=== PATIENT | female | born 1995 | race Caucasian/White ===

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

== ENCOUNTER 2017-03-19 00:06 | Emergency (ER) | payer SELFPAY ==
[2017-03-19 07:00] LABS: HCG Qualitative,Urine Negative (Negative)
[2017-03-19 07:10] LABS: Bilirubin,Urine NEG (Negative); Blood,Urine NEG (Negative); Color,Urine Straw (Yellow); Nitrite,Urine NEG (Negative); Protein,Urine <15 mg/dL mg/dL (Negative); Urobilinogen,Urine < 2.0 mg/dL (<2.0)
--- NOTE | 2017-03-19 07:42 | Emergency Department Report ---
ED Female HPI - General Chief complaint: Urogenital-Female Stated complaint: VAG DISCOMFORT Time Seen by Provider: 03/19/17 07:07 Source: patient, family Mode of arrival: Ambulatory Limitations: No Limitations - History of Present Illness Initial comments: Patient reports that she has vaginal irritation and discharge. She says she was here recently for same tenderness treated with Flagyl but she did not complete Flagyl. Patient says she is not concerned about any other STD she thinks that she still have the bacterial vaginosis with his she didn't take all her medication she also says she is irritated on the vaginal area and also while having sexual activity. When reviewing patient history she is type 1 diabetes. She said her blood sugar was running high yesterday and she also just drank some flavored coffee from the machine. She denies any increase urination or increased thirst. Denies any fever or chills. Denies any vaginal bleeding. Last menstrual period was 02/17/2017. Denies any abdominal pain or back pain. Denies any nausea vomiting. She is with her partner and partner reports that he is not having any penile drainage or rash. Patient is on insulin but and have pcp. She did complain of pelvic pain in triage here but patient is denying that at present. MD Complaint: vaginal discharge, dysuria, other (patient is here for treatment for bacterial vaginosis because she said she did not take Flagyl as she was instructed. She has diabetes and complaining of external vaginal irritation) Onset/Timin -: week(s) Radiation: non-radiating Severity: severe Severity scale (0 -10): 8 Quality: burning Consistency: intermittent Improves with: none Worsens with: none Are you Now?: No Associated Symptoms: vaginal discharge, other (vaginal irritation). denies: vaginal bleeding, abdominal pain, nausea/vomiting, fever/chills, headaches, loss of appetite, dysuria, hematuria, rash, seizure, shortness of breath, syncope, weakness - Related Data Sexually active: Yes Home Medications Medication Instructions Recorded Confirmed Last Taken Levothyroxine [Synthroid] 112 mcg PO QAM 08/30/14 01/22/16 01/22/16 unknown valACYclovir [Valtrex] 500 mg PO BID 08/30/14 01/22/16 Unknown Insulin Lispro Protamin/Lispro 15 units SQ PMHY 08/13/15 01/22/16 01/22/16 [HumaLOG Mix 75-25 Kwikpen] 1700 Insulin Lispro Protamin/Lispro 20 units SQ AMHY 08/13/15 01/22/16 01/22/16 [HumaLOG Mix 75-25 Kwikpen] Previous Rx's Medication Instructions Recorded Last Taken Type Vit No.130/Iron/Folic 1 each PO QDAY #30 tablet 08/13/15 Unknown Rx [ Tablet] Tobramycin/Dexamethasone [Tobradex 2.5 ml OP Q4H #1 bottle 12/07/16 Unknown Rx Eye Drops] Permethrin 5% [Acticin 5% CREAM] 1 applicatio TP ONCE #1 tube 12/29/16 Unknown Rx Sulfamethoxazole/Trimethoprim 1 each PO BID #6 tablet 12/29/16 Unknown Rx [Bactrim DS TAB] metroNIDAZOLE [Flagyl TAB] 500 mg PO Q12HR #14 tab 12/29/16 Unknown Rx Fluconazole [Diflucan TAB] 100 mg PO QDAY 2 Days #2 tablet 03/19/17 Unknown Rx Nystatin Oint [Mycostatin Oint] 1 applicatio TP BID 1 Days #1 tube 03/19/17 Unknown Rx metroNIDAZOLE [Flagyl] 500 mg PO Q12HR 7 Days #14 tab 03/19/17 Unknown Rx Allergies Allergy/AdvReac Type Severity Reaction Status Date / Time No Known Allergies Allergy Verified 03/05/16 22:42 ED Review of Systems ROS: Stated complaint: VAG DISCOMFORT Other details as noted in HPI Comment: All other systems reviewed and negative Constitutional: no symptoms reported Endocrine: denies: excessive sweating, increased hunger, increased thirst, increased urine, unexplained weight gain, unexplained weight loss Gastrointestinal: denies: abdominal pain, nausea, vomiting, diarrhea, constipation, hematemesis, melena, hematochezia Genitourinary: discharge, dyspareunia, other (vaginal irritation). denies: urgency, dysuria, frequency, hematuria, abnormal menses Musculoskeletal: denies: back pain, arthralgia, myalgia Skin: denies: rash Neurological: denies: headache, numbness, paresthesias, abnormal gait, vertigo ED Past Medical Hx - Past Medical History Previous Medical History?: Yes Hx Hypertension: No Hx Diabetes: Yes (age 8) Hx Deep Vein Thrombosis: No Hx Renal Disease: No Hx Sickle Cell Disease: No Hx Seizures: No Hx Asthma: No Hx HIV: No - Surgical History Past Surgical History?: Yes Additional Surgical History: - Social History Smoking Status: Never Smoker Substance Use Type: None - Medications Home Medications: Home Medications Medication Instructions Recorded Confirmed Last Taken Type Levothyroxine [Synthroid] 112 mcg PO QAM 08/30/14 01/22/16 01/22/16 History unknown valACYclovir [Valtrex] 500 mg PO BID 08/30/14 01/22/16 Unknown History Insulin Lispro Protamin/Lispro 15 units SQ PMHY 08/13/15 01/22/16 01/22/16 History [HumaLOG Mix 75-25 Kwikpen] 1700 Insulin Lispro Protamin/Lispro 20 units SQ AMHY 08/13/15 01/22/16 01/22/16 History [HumaLOG Mix 75-25 Kwikpen] Vit No.130/Iron/Folic 1 each PO QDAY #30 tablet 08/13/15 01/22/16 Unknown Rx [ Tablet] Tobramycin/Dexamethasone [Tobradex 2.5 ml OP Q4H #1 bottle 12/07/16 Unknown Rx Eye Drops] Permethrin 5% [Acticin 5% CREAM] 1 applicatio TP ONCE #1 tube 12/29/16 Unknown Rx Sulfamethoxazole/Trimethoprim 1 each PO BID #6 tablet 12/29/16 Unknown Rx [Bactrim DS TAB] metroNIDAZOLE [Flagyl TAB] 500 mg PO Q12HR #14 tab 12/29/16 Unknown Rx Fluconazole [Diflucan TAB] 100 mg PO QDAY 2 Days #2 tablet 03/19/17 Unknown Rx Nystatin Oint [Mycostatin Oint] 1 applicatio TP BID 1 Days #1 tube 03/19/17 Unknown Rx metroNIDAZOLE [Flagyl] 500 mg PO Q12HR 7 Days #14 tab 03/19/17 Unknown Rx ED Physical Exam - General Limitations: No Limitations General appearance: alert, in no apparent distress - GI/Abdominal GI/Abdominal exam: Present: soft, normal bowel sounds. Absent: distended, tenderness, guarding, rebound, rigid, organomegaly, mass, bruit, pulsatile mass , hernia - External exam: Present: erythema, swelling. Absent: lesions, lacerations, ecchymosis, bleeding Speculum exam: Present: normal speculum exam, vaginal discharge. Absent: erythema, cervical discharge, vaginal bleeding, foreign body, tissue, laceration Bi-manual exam: Present: normal bi-manual exam ED Course Vital Signs 03/19/17 03/19/17 03/19/17 01:47 08:15 08:49 Temperature 98.8 F 98.5 F Pulse Rate 116 H 107 H 94 H Respiratory 14 Rate Blood Pressure 119/73 Blood Pressure 113/76 [Right] O2 Sat by Pulse 99 99 Oximetry - Reevaluation(s) Reevaluation #1: 03/19/17 08:47 Patient reports vaginal irritation and discharge similar to what she was treated for last month. She says she didn't finish her medication. She was placed on Flagyl for bacterial vaginosis. She is type 1 diabetes and her blood sugar is over 300. Patient given regular insulin 6 units subcutaneous and recheck blood sugar. She is also started on oral hydration. She has less than 20% clue cells, no trichomoniasis or yeast seen. She does have redness to her vulvovaginal area. Reevaluation #2: 03/19/17 10:26 Patient with blood glucose elevation and insulin-dependent diabetes. She has trace ketones in her urine but no urinary tract infection. Patient was given 6 units of insulin subcutaneous and her blood glucose at present is 314. Patient had just drank some coffee and she says she is going on to take her insulin. She stable vital signs are stable. Patient with vulvovaginitis and small amount of clue cells in her soft ED Medical Decision Making - Lab Data Lab Results 03/19/17 03/19/17 03/19/17 Range/Units 04:20 08:07 09:47 POC Glucose 334 H 314 H (70-105) Urine Color Straw (Yellow) Urine Turbidity Clear (Clear) Urine pH 6.0 (5.0-7.0) Ur Specific [place] 1.029 (1.003-1.030) Urine Protein <15 mg/dl (Negative) mg/dL Urine Glucose (UA) >=500 (Negative) mg/dL Urine Ketones Tr (Negative) mg/dL Urine Blood Neg (Negative) Urine Nitrite Neg (Negative) Ur Reducing Substances Not Reportable Urine Bilirubin Neg (Negative) Urine Ictotest Not Reportable Urine Urobilinogen < 2.0 (<2.0) mg/dL Ur Leukocyte Esterase Neg (Negative) Urine WBC (Auto) 1.0 (0.0-6.0) /HPF Urine RBC (Auto) 1.0 (0.0-6.0) /HPF U Epithel Cells (Auto) < 1.0 (0-13.0) /HPF Urine HCG, Qual Negative (Negative) Wet prep: Less than 20% clue cell, no trichomoniasis or yeast. Critical care attestation.: If time is entered above; I have spent that time in minutes in the direct care of this critically ill patient, excluding procedure time. ED Disposition Clinical Impression: Hyperglycemia due to type 1 diabetes mellitus, Vulvovaginitis due to Cyn, Bacterial vaginosis Disposition: - TO HOME OR SELFCARE Is pt being admited?: No Does the pt Need Aspirin: No Condition: Stable Instructions: Bacterial Vaginosis (ED), Managing Diabetes During Sick Days (ED) , Diabetic Hyperglycemia (ED), Vulvovaginal Candidiasis (ED) Additional Instructions: follow-up with a primary care physician tomorrow and if he do not have one follow up with [facility]. monitored a blood glucose as well as elevated today and elevated blood glucose came cause infection which is what you have on the outside a few vaginal area Please increase her fluid intake to 2 the 3 L of water per day Please follow diabetic diet was previously instructed take meds As prescribed Take Flagyl for bacterial vaginosis and Diflucan on and nystatin for yeast infection and vagina Practice safe sex Prescriptions: Fluconazole [Diflucan TAB] 100 mg PO QDAY 2 Days #2 tablet metroNIDAZOLE [Flagyl] 500 mg PO Q12HR 7 Days #14 tab Nystatin Oint [Mycostatin Oint] 1 applicatio TP BID 1 Days #1 tube Referrals: PRIMARY CARE,MD [Primary Care Provider] - 24 Hours [facility] [Outside] - 24 Hours Forms: STI Treatment and Prevention, Work/School Release Form(ED), Accompanied Note
[2017-03-19 08:18] VITALS: BP 113/76
== END 2017-03-19 10:39 | disposition home or self-care (01) ==
LOC: ED 00:06
DX: B37.3 Candidiasis of vulva and vagina (principal); N76.0 Acute vaginitis; E10.65 Type 1 diabetes mellitus with hyperglycemia
CPT/HCPCS: 81001; 81025; 82962; 87210; 96372; J1815

== ENCOUNTER 2017-11-07 04:51 | Inpatient (IN) | payer SELFPAY ==
[2017-11-07 06:18] LABS: Basophils % (Auto) 0.4 % (0.0-1.8); Eosinophils # (Auto) 0.2 K/mm3 (0.0-0.4); Eosinophils % (Auto) 2.7 % (0.0-4.3); Hematocrit 39.4 % (30.3-42.9); Lymphocytes # (Auto) 1.4 K/mm3 (1.2-5.4); Lymphocytes % (Auto) 15.9 % (13.4-35.0); Mean Corpuscular HGB Conc 33 % (30-34); Mean Corpuscular Hemoglobin 27 pg (28-32); Mean Corpuscular Volume 82 fl (79-97); Monocytes # (Auto) 0.6 K/mm3 (0.0-0.8); Monocytes % (Auto) 6.8 % (0.0-7.3); Platelet Count 309 K/mm3 (140-440); Red Blood Count 4.78 M/mm3 (3.65-5.03); Red Cell Distribution Width 13.7 % (13.2-15.2)
[2017-11-07 06:38] LABS: Alanine Aminotransferase 11 units/L (7-56); Albumin 4.3 g/dL (3.9-5); BUN/Creatinine Ratio 34; Blood Urea Nitrogen 17 mg/dL (7-17); Calcium 9.5 mg/dL (8.4-10.2); Hemolysis Index 0
[2017-11-07 07:48] LABS: Bacteria,Urine 1+ /HPF (Negative); Bilirubin,Urine NEG (Negative); Blood,Urine MOD (Negative); Color,Urine Straw (Yellow); Urobilinogen,Urine < 2.0 mg/dL (<2.0)
[2017-11-07] MEDS ORDERED: NACL 0.9% 1000 ML 1,000 ML IV ONE (08:46)
[2017-11-07] MEDS ORDERED: SUBLIMAZE IV ONE (08:46)
[2017-11-07] MEDS ORDERED: ZOFRAN IV ONE (08:46)
[2017-11-07] MEDS ORDERED: LEVAQUIN 500MG/100ML 500 MG/100 ML BAG IV ONE (08:56)
--- NOTE | 2017-11-07 09:00 | Emergency Department Report ---
HPI - General Chief Complaint: Abdominal Pain Time Seen by Provider: 11/07/17 08:45 - HPI HPI: Room 7 The patient is a 22-year-old female presenting with a chief complaint left flank pain. Patient states her 6 days ago with pain in the left flank. Patient admits to dysuria and nausea and vomiting. Patient states she feels weak and has exhibited hyperglycemia. The patient is uncertain if she's had a fever. The patient gives her pain a score of 10/10 Location: Left flank Duration: 6 days Quality: Pain Severity: 10/10 Modifying factors: [see above] Context: [see above] Mode of transportation: [not driving] ED Past Medical Hx - Past Medical History Previous Medical History?: Yes Hx Diabetes: Yes (age 8) - Surgical History Past Surgical History?: Yes Additional Surgical History: - Family History Family history: no significant - Social History Smoking Status: Never Smoker Substance Use Type: None (denies illicit drug use) - Medications Home Medications: Home Medications Medication Instructions Recorded Confirmed Last Taken Type Levothyroxine [Synthroid] 112 mcg PO QAM 08/30/14 01/22/16 01/22/16 History unknown valACYclovir [Valtrex] 500 mg PO BID 08/30/14 01/22/16 Unknown History Insulin Lispro Protamin/Lispro 15 units SQ PMHY 08/13/15 01/22/16 01/22/16 History [HumaLOG Mix 75-25 Kwikpen] 1700 Insulin Lispro Protamin/Lispro 20 units SQ AMHY 08/13/15 01/22/16 01/22/16 History [HumaLOG Mix 75-25 Kwikpen] Vit No.130/Iron/Folic 1 each PO QDAY #30 tablet 08/13/15 01/22/16 Unknown Rx [ Tablet] Tobramycin/Dexamethasone [Tobradex 2.5 ml OP Q4H #1 bottle 12/07/16 Unknown Rx Eye Drops] Permethrin 5% [Acticin 5% CREAM] 1 applicatio TP ONCE #1 tube 12/29/16 Unknown Rx Sulfamethoxazole/Trimethoprim 1 each PO BID #6 tablet 12/29/16 Unknown Rx [Bactrim DS TAB] metroNIDAZOLE [Flagyl TAB] 500 mg PO Q12HR #14 tab 12/29/16 Unknown Rx Fluconazole [Diflucan TAB] 100 mg PO QDAY 2 Days #2 tablet 03/19/17 Unknown Rx Nystatin Oint [Mycostatin Oint] 1 applicatio TP BID 1 Days #1 tube 03/19/17 Unknown Rx metroNIDAZOLE [Flagyl] 500 mg PO Q12HR 7 Days #14 tab 03/19/17 Unknown Rx ED Review of Systems ROS: Stated complaint: FLANK PAIN BODYACHE Other details as noted in HPI Constitutional: fever (?), weakness Eyes: denies: eye pain ENT: denies: throat pain Respiratory: no symptoms reported Cardiovascular: denies: chest pain Endocrine: other (hyperglycemia) Gastrointestinal: abdominal pain, nausea, vomiting Genitourinary: dysuria Musculoskeletal: back pain Neurological: denies: headache Physical Exam - Physical Exam Physical Exam: GENERAL: The patient is well-developed well-nourished female lying on stretcher appearing to be in moderate discomfort. [] HEENT: Normocephalic. Atraumatic. Extraocular motions are intact. Patient has moist mucous membranes. NECK: Supple. Trachea midline CHEST/LUNGS: Clear to auscultation. There is no respiratory distress noted. HEART/CARDIOVASCULAR: Regular. There is no tachycardia. There is no gallop rub or murmur. ABDOMEN: Abdomen is soft, with tenderness to palpation of the left lower quadrant. Patient has normal bowel sounds. There is no abdominal distention. SKIN: There is no rash. There is no edema. There is no diaphoresis. NEURO: The patient is awake, alert, and oriented. The patient is cooperative. The patient has normal speech MUSCULOSKELETAL: There is left CVA tenderness. There is no evidence of acute injury. ED Medical Decision Making - Lab Data Result diagrams: 11/07/17 05:50 11/07/17 05:50 - Radiology Data Radiology results: report reviewed (CT abdomen and pelvis), image reviewed (CT abdomen and pelvis) [facility] [address] [place] [address] Cat Scan Report Signed Patient: NEW CULVER MR#: [id number] : 1995 Acct:[id number] Age/Sex: 22 / F ADM Date: 11/07/17 Loc: ED Attending Dr: Ordering Physician: ELMA MAYA MD Date of Service: 11/07/17 Procedure(s): CT abdomen pelvis wo con Accession Number(s): [id number] cc: ELMA MAYA MD FINAL REPORT EXAM: CT ABDOMEN PELVIS WO CON HISTORY: left flank pain nausea vomiting COMPARISON: None. TECHNIQUE: Multiple contiguous axial images were obtained from the lung bases to the pubic symphysis without administration of IV contrast. Reformatted sagittal and coronal images were available for review. FINDINGS: Lung bases: Normal. Visualized heart and mediastinum: Normal noncontrast appearance. Liver: Normal noncontrast appearance. Spleen: Normal noncontrast appearance. Pancreas: Normal noncontrast appearance. Gallbladder and Biliary Tree: No calcified gallstones. No biliary ductal dilatation. Adrenal glands: Normal. Kidneys: No renal or ureteral calculi. There is mild prominence of the bilateral renal collecting systems and ureters. Bladder: Normal. Pelvic organs: Normal. Bowel: No focal wall thickening. No evidence of obstruction. Appendix is normal in caliber without surrounding inflammatory change. Peritoneum: No significant mesenteric adenopathy. No free air or free fluid. Vasculature: Abdominal aorta is normal in caliber without evidence of aneurysm. Normal noncontrast appearance of the portal venous system and the inferior vena cava. Bones and soft tissues: No suspicious osseous lesions. No acute fracture or dislocation. Soft tissues are normal. IMPRESSION: No renal or ureteral calculi. Mild prominence of the bilateral renal collecting systems and ureters. Findings may represent recently passed stones versus infection or inflammation. No evidence of bowel obstruction. Normal appendix. Transcribed By : SERGIO Dictated By: DARYL CHICAS MD Electronically Authenticated By: DARYL CHICAS MD Signed Date/Time: 11/07/17956 DD/ 6 TD/TT: 11/07/17956 - Differential Diagnosis pyelonephritis, renal colic Critical care attestation.: If time is entered above; I have spent that time in minutes in the direct care of this critically ill patient, excluding procedure time. ED Disposition Clinical Impression: Pyelonephritis, DKA (diabetic ketoacidoses) Disposition: OP ADMIT IP TO THIS HOSP Is pt being admited?: Yes Does the pt Need Aspirin: Yes Condition: Fair Instructions: Abdominal Pain (ED), Diabetic Ketoacidosis (ED) Referrals: PRIMARY CARE, [Primary Care Provider] - 3-5 Days Time of Disposition: 10:19 (hospitalist paged)
--- NOTE | 2017-11-07 09:58 | Cat Scan Report ---
FINAL REPORT EXAM: CT ABDOMEN PELVIS WO CON HISTORY: left flank pain nausea vomiting COMPARISON: None. TECHNIQUE: Multiple contiguous axial images were obtained from the lung bases to the pubic symphysis without administration of IV contrast. Reformatted sagittal and coronal images were available for review. FINDINGS: Lung bases: Normal. Visualized heart and mediastinum: Normal noncontrast appearance. Liver: Normal noncontrast appearance. Spleen: Normal noncontrast appearance. Pancreas: Normal noncontrast appearance. Gallbladder and Biliary Tree: No calcified gallstones. No biliary ductal dilatation. Adrenal glands: Normal. Kidneys: No renal or ureteral calculi. There is mild prominence of the bilateral renal collecting systems and ureters. Bladder: Normal. Pelvic organs: Normal. Bowel: No focal wall thickening. No evidence of obstruction. Appendix is normal in caliber without surrounding inflammatory change. Peritoneum: No significant mesenteric adenopathy. No free air or free fluid. Vasculature: Abdominal aorta is normal in caliber without evidence of aneurysm. Normal noncontrast appearance of the portal venous system and the inferior vena cava. Bones and soft tissues: No suspicious osseous lesions. No acute fracture or dislocation. Soft tissues are normal. IMPRESSION: No renal or ureteral calculi. Mild prominence of the bilateral renal collecting systems and ureters. Findings may represent recently passed stones versus infection or inflammation. No evidence of bowel obstruction. Normal appendix.
[2017-11-07] MEDS ORDERED: D50W (25GM) Syringe IV PRN (10:20)
--- NOTE | 2017-11-07 10:32 | History and Physical Report ---
History of Present Illness Date of examination: 11/07/17 Medications and Allergies Allergies Allergy/AdvReac Type Severity Reaction Status Date / Time No Known Allergies Allergy Verified 03/05/16 22:42 Active Meds: Active Medications Dextrose (D50w (25gm) Syringe) 0 ml IV ONCE PRN PRN Reason: Hypoglycemia Insulin Human Regular 100 (units/ Sodium Chloride) 100 mls @ 6 mls/hr IV TITR SILVANA; Protocol Exam - Physical Exam Narrative exam: GEN: Not in acute distress, lying in bed HEENT: Normocephalic, atraumatic, Neck: supple, No JVD Lungs: Clear to auscultation bilaterally, no crackles Heart:S1 and S2 reg, no murmurs, rubs or gallop Abd:soft, tender left flank, non distended, Normal bowel sounds Ext: No edema, no clubbing, no cyanosis Neuro: Awake, alert, oriented x 3, no focal sig - Constitutional Vitals: Temp Pulse Resp BP Pulse Ox 118 H 20 113/66 11/07/17 09:06 11/07/17 09:06 11/07/17 09:06 Results - Labs CBC & Chem 7: 11/07/17 05:50 11/07/17 05:50 Labs: Abnormal lab results 11/07/17 11/07/17 11/07/17 Range/Units 05:50 05:50 07:16 MCH 27 L (28-32) pg Seg Neutrophils % 74.2 H (40.0-70.0) % VBG pH (7.320-7.420) Sodium 136 L (137-145) mmol/L Chloride 93.4 L (98-107) mmol/L Creatinine 0.5 L (0.7-1.2) mg/dL Glucose 414 H (65-100) mg/dL Urine WBC (Auto) 127.0 H (0.0-6.0) /HPF 11/07/17 Range/Units 09:05 MCH (28-32) pg Seg Neutrophils % (40.0-70.0) % VBG pH 7.314 L (7.320-7.420) Sodium (137-145) mmol/L Chloride (98-107) mmol/L Creatinine (0.7-1.2) mg/dL Glucose (65-100) mg/dL Urine WBC (Auto) (0.0-6.0) /HPF
[2017-11-07] MEDS ORDERED: ZOFRAN IV PRN (10:51)
[2017-11-07] MEDS ORDERED: TYLENOL PO PRN (10:51)
[2017-11-07] MEDS ORDERED: MORPHINE IV PRN (10:51)
[2017-11-07] MEDS ORDERED: SODIUM CHLORIDE FLUSH SYRINGE 10 ML IV PRN (10:51)
[2017-11-07] MEDS ORDERED: HumuLIN R 100 UNITS in NACL 0.9% 99 ML IV SCH (11:00)
[2017-11-07] MEDS ORDERED: NACL 0.9% 1000 ML 1,000 ML IV SCH (11:00)
[2017-11-07] MEDS: HEPARIN SUB-Q SCH ×2 (14:36→21:02)
[2017-11-07] MEDS: SODIUM CHLORIDE FLUSH SYRINGE 10 ML IV SCH (21:06)
[2017-11-08] MEDS: HEPARIN SUB-Q SCH (04:30)
[2017-11-08 05:28] LABS: Basophils % (Auto) 0.5 % (0.0-1.8); Eosinophils # (Auto) 0.3 K/mm3 (0.0-0.4); Hematocrit 30.7 % (30.3-42.9); Hemoglobin 10.3 gm/dl (10.1-14.3); Lymphocytes % (Auto) 43.1 % (13.4-35.0); Mean Corpuscular HGB Conc 34 % (30-34); Mean Corpuscular Hemoglobin 27 pg (28-32); Mean Corpuscular Volume 80 fl (79-97); Monocytes # (Auto) 0.4 K/mm3 (0.0-0.8); Monocytes % (Auto) 6.3 % (0.0-7.3); Platelet Count 307 K/mm3 (140-440); Red Blood Count 3.82 M/mm3 (3.65-5.03); Red Cell Distribution Width 13.4 % (13.2-15.2)
[2017-11-08 05:38] LABS: BUN/Creatinine Ratio 40; Blood Urea Nitrogen 12 mg/dL (7-17); Hemolysis Index 2
[2017-11-08] MEDS ORDERED: LEVAQUIN 750MG/150ML 750 MG/150 ML BAG IV SCH (10:00)
--- NOTE | 2017-11-08 10:50 | Discharge Summary ---
Providers - Providers Date of Admission: 11/07/17 12:31 Date of discharge: 11/08/17 Attending physician: ANDI CAMARA Primary care physician: OBED FIELD MD Hospitalization Condition: Fair Disposition: DC-01 TO HOME OR SELFCARE Core Measure Documentation - Palliative Care Palliative Care/ Comfort Measures: Not Applicable - Core Measures Any of the following diagnoses?: none Exam - Constitutional Vitals: Temp Pulse Resp BP Pulse Ox 98.6 F 95 H 24 104/63 97 11/08/17 04:50 11/08/17 04:50 11/08/17 04:50 11/08/17 04:50 11/08/17 04:50 Plan Activity: no restrictions Diet: diabetic Additional Instructions: 1.Follow up with PCP or [facility] medical in 1 week Follow up with: PRIMARY CARE, [Primary Care Provider] - 3-5 Days Prescriptions: Insulin NPH/Regular [Novolin 70/30] 20 unit SQ BIDDIAB #1 vial levoFLOXacin [Levaquin] 750 mg PO QDAY #5 tablet Promethazine [Phenergan TAB] 25 mg PO Q6HR PRN #20 tab PRN Reason: Nausea or vomiting
[2017-11-08] MEDS ORDERED: K-DUR PO ONE (11:00)
[2017-11-08] MEDS: SODIUM CHLORIDE FLUSH SYRINGE 10 ML IV SCH (11:23)
[2017-11-08 13:40] VITALS: BP 126/94
== END 2017-11-08 14:45 | disposition home or self-care (01) | DRG 689 ==
LOC: ED 04:51 → 3A 12:31
PROVIDERS: ADMIT Internal Medicine; ATTEND Internal Medicine
DX: N12 Tubulo-interstitial nephritis, not specified as acute or chronic (principal); E11.10 Type 2 diabetes mellitus with ketoacidosis without coma; Z79.899 Other long term (current) drug therapy
CPT/HCPCS: 36415; 74176; 80048; 80053; 81001; 82805; 82962; 83036; 83735; 84100; 84703; 85025; 87086; 96361; 96374; 96375; J1644; J1815; J1956; J2405; J3010; J7030

== ENCOUNTER 2018-02-05 09:49 | Inpatient (IN) | payer OTHER ==
[2018-02-05] MEDS ORDERED: ZOFRAN IV ONE ×3 (10:28→20:24)
[2018-02-05] MEDS ORDERED: NACL 0.9% 1000 ML 1,000 ML IV ONE ×2 (10:28→11:24)
[2018-02-05] MEDS ORDERED: MORPHINE IV ONE (10:28)
--- NOTE | 2018-02-05 10:31 | Emergency Department Report ---
ED N/V/D HPI - General Chief complaint: Nausea/Vomiting/Diarrhea Stated complaint: VOMITING/NAUSEA Time Seen by Provider: 02/05/18 10:11 Source: patient Mode of arrival: Stretcher Limitations: No Limitations - History of Present Illness Initial comments: 31-year-old female with history of diabetes process to ED with nausea and vomiting since this morning. Patient also reports associated diffuse abdominal pain. Patient patient is currently on her menstrual period. Patient denies fever. MD complaint: nausea, vomiting, diarrhea, abdominal pain -: This morning Description of Vomiting: food contents, watery Description of Diarrhea: water Associated Abdominal Pain: Yes Location: diffuse Radiation: none Severity: severe Quality: cramping Consistency: constant Improves with: none Worsens with: none Associated Symptoms: nausea/vomiting. denies: fever/chills - Related Data Previous Rx's Medication Instructions Recorded Last Taken Type Insulin NPH/Regular [Novolin 70/30] 20 unit SQ BIDDIAB #1 vial 11/08/17 Unknown Rx Allergies Allergy/AdvReac Type Severity Reaction Status Date / Time No Known Allergies Allergy Verified 03/05/16 22:42 ED Review of Systems ROS: Stated complaint: VOMITING/NAUSEA Other details as noted in HPI Comment: All other systems reviewed and negative Constitutional: denies: chills, fever Gastrointestinal: abdominal pain. denies: nausea, vomiting, diarrhea ED Past Medical Hx - Past Medical History Hx Hypertension: No Hx Congestive Heart Failure: No Hx Diabetes: Yes Hx Deep Vein Thrombosis: No Hx Renal Disease: No Hx Sickle Cell Disease: No Hx Seizures: No Hx Asthma: No Hx COPD: No Hx HIV: No - Surgical History Additional Surgical History: 2017 - Social History Smoking Status: Never Smoker Substance Use Type: None - Medications Home Medications: Home Medications Medication Instructions Recorded Confirmed Last Taken Type Insulin NPH/Regular [Novolin 70/30] 20 unit SQ BIDDIAB #1 vial 11/08/17 02/05/18 Unknown Rx ED Physical Exam - General Limitations: No Limitations General appearance: alert, other (appears uncomfortable) - Head Head exam: Present: atraumatic, normocephalic - Eye Eye exam: Present: normal appearance - ENT ENT exam: Present: mucous membranes moist - Neck Neck exam: Present: normal inspection - Respiratory Respiratory exam: Present: normal lung sounds bilaterally. Absent: respiratory distress - Cardiovascular Cardiovascular Exam: Present: normal rhythm, tachycardia - GI/Abdominal GI/Abdominal exam: Present: soft, tenderness (moderate, diffuse). Absent: distended - Neurological Exam Neurological exam: Present: alert, oriented X3 - Psychiatric Psychiatric exam: Present: normal affect, normal mood - Skin Skin exam: Present: warm, dry, intact, normal color ED Course Vital Signs 02/05/18 02/05/18 02/05/18 10:01 10:10 11:18 Temperature 98.2 F Pulse Rate 107 H Respiratory 22 18 Rate Blood Pressure 133/88 [Right] O2 Sat by Pulse 100 Oximetry 02/05/18 02/05/18 11:45 14:16 Temperature Pulse Rate 110 H 118 H Respiratory 12 22 Rate Blood Pressure 122/89 119/82 [Right] O2 Sat by Pulse 98 98 Oximetry ED Medical Decision Making - Lab Data Result diagrams: 02/05/18 10:53 02/05/18 14:04 - Medical Decision Making 23-year-old female presents to ED with nausea, vomiting, diarrhea and diffuse abdominal pain times one day. History of diabetes. Today patient appears to be in DKA, with elevated blood glucose, bicarbonate of 11 and an anion gap of 30. Blood work also shows moderate serum ketones. Patient started on IV fluids and insulin treatment for treatment of DKA. Patient admitted to the hospitalist. - Differential Diagnosis DKA, gastroparesis, gastroenteritis Critical Care Time: Yes Critical care time in (mins) excluding proc time.: 35 Critical care attestation.: If time is entered above; I have spent that time in minutes in the direct care of this critically ill patient, excluding procedure time. Critical Care Time: 35 minutes ED Disposition Clinical Impression: DKA (diabetic ketoacidoses) Disposition: -09 OP ADMIT IP TO THIS HOSP Is pt being admited?: Yes Condition: Stable Time of Disposition: 11:30
[2018-02-05 11:09] LABS: Basophils # (Auto) 0.1 K/mm3 (0.0-0.1); Basophils % (Auto) 0.8 % (0.0-1.8); Eosinophils # (Auto) 0.1 K/mm3 (0.0-0.4); Eosinophils % (Auto) 0.7 % (0.0-4.3); Hematocrit 41.8 % (30.3-42.9); Hemoglobin 13.3 gm/dl (10.1-14.3); Lymphocytes # (Auto) 1.7 K/mm3 (1.2-5.4); Lymphocytes % (Auto) 13.2 % (13.4-35.0); Mean Corpuscular HGB Conc 32 % (30-34); Mean Corpuscular Hemoglobin 27 pg (28-32); Mean Corpuscular Volume 84 fl (79-97); Monocytes # (Auto) 0.2 K/mm3 (0.0-0.8); Monocytes % (Auto) 1.9 % (0.0-7.3); Platelet Count 374 K/mm3 (140-440); Red Blood Count 4.97 M/mm3 (3.65-5.03)
[2018-02-05 11:18] LABS: Alanine Aminotransferase 13 units/L (7-56); Albumin 4.7 g/dL (3.9-5); BUN/Creatinine Ratio 20; Blood Urea Nitrogen 12 mg/dL (7-17); Calcium 9.1 mg/dL (8.4-10.2); Hemolysis Index 90
[2018-02-05] MEDS ORDERED: D50W (25GM) Syringe IV PRN ×2 (11:24→13:58)
--- NOTE | 2018-02-05 12:07 | History and Physical Report ---
History of Present Illness Chief complaint: I feel terrible History of present illness: 23 YO Female with DM, Noncompliance presents to ED for evaluation. Pt states that she has experienced nausea, multiple episodes of vomiting, as well as abdominal discomfort after multiple episodes of vomiting over the past 1 day wi th persistent symptoms over the same time frame. Pt transported to [facility] for further care and evaluation. Pt seen and evaluated in ED and found to have new onset DM complicated by DKA, as well as Metabolic Acidosis. Pt admitted to ICU and initiated on DKA Protocol. Pt denies fever, chills, CP, Palpitations, Trauma, hemoptysis, BRBPR, Skin rash, or recent ill contacts. Past History Past Medical History: diabetes Past Surgical History: Social history: single. denies: smoking, alcohol abuse, prescription drug abuse Family history: diabetes, hypertension Medications and Allergies Allergies Allergy/AdvReac Type Severity Reaction Status Date / Time No Known Allergies Allergy Verified 03/05/16 22:42 Home Medications Medication Instructions Recorded Confirmed Last Taken Type Insulin NPH/Regular [Novolin 70/30] 20 unit SQ BIDDIAB #1 vial 11/08/17 02/05/18 Unknown Rx Active Meds: Active Medications Dextrose (D50w (25gm) Syringe) 0 ml IV PRN PRN PRN Reason: Hypoglycemia Sodium Chloride (Nacl 0.9% 1000 Ml) 1,000 mls @ 999 mls/hr IV BOLUS ONE Stop: 02/05/18 12:24 Last Admin: 02/05/18 12:00 Dose: 999 mls/hr Documented by: Insulin Human Regular 100 (units/ Sodium Chloride) 100 mls @ 6 mls/hr IV TITR SILVANA; Protocol Review of Systems Constitutional: no weight loss, no weight gain, no fever, no chills Ears, nose, mouth and throat: no ear pain, no ear discharge, no tinnitis, no decreased hearing, no nose pain Breasts: no change in shape, no swelling, no mass Cardiovascular: no chest pain, no orthopnea, no palpitations, no rapid/irregular heart beat, no edema Respiratory: no cough, no excessive sputum, no hemoptysis, no dyspnea on exertion Gastrointestinal: nausea, vomiting (abdominal discomfort after vomiting), no abdominal pain, no diarrhea, no constipation, no change in bowel habits, no hematemesis, no coffee ground emesis Genitourinary Female: no pelvic pain, no flank pain, no menorrhagia, no dysuria, no urinary frequency, no urgency Rectal: no pain, no incontinence, no bleeding Musculoskeletal: no neck stiffness, no neck pain, no shooting arm pain, no arm numbness/tingling, no low back pain Integumentary: no rash, no pruritis, no redness, no sores, no wounds Neurological: no paralysis, no weakness, no parathesias, no numbness, no tingling, no seizures Psychiatric: no anxiety, no memory loss, no change in sleep habits, no sleep disturbances, no insomnia, no hypersomnia, no change in appetite Endocrine: no cold intolerance, no heat intolerance, no polyphagia, no excessive thirst, no polydipsia, no polyuria Hematologic/Lymphatic: no easy bruising, no easy bleeding, no lymphadenopathy, no lymphedema Allergic/Immunologic: no urticaria, no allergic rhinitis, no wheezing, no persistent infections, no anaphylaxis, no angioedema Exam - Constitutional Vitals: Temp Pulse Resp BP Pulse Ox 98.2 F 110 H 12 122/89 98 02/05/18 10:01 02/05/18 11:45 02/05/18 11:45 02/05/18 11:45 02/05/18 11:45 General appearance: Present: mild distress - EENT Eyes: Present: PERRL ENT: hearing intact, clear oral mucosa - Neck Neck: Present: supple, normal ROM - Respiratory Respiratory effort: normal Respiratory: bilateral: CTA - Cardiovascular Heart Sounds: Present: S1 & S2. Absent: rub, click Peripheral Pulses: within normal limits - Abdominal General gastrointestinal: Present: soft, non-tender, non-distended, normal bowel sounds Female genitourinary: Present: normal - Integumentary Integumentary: Present: clear, warm, dry - Musculoskeletal Musculoskeletal: gait normal, strength equal bilaterally - Psychiatric Psychiatric: appropriate mood/affect, intact judgment & insight - Neurologic Neurologic: CNII-XII intact, moves all extremities Results - Labs CBC & Chem 7: 02/05/18 10:53 02/05/18 16:40 Labs: Abnormal lab results 02/05/18 02/05/18 02/05/18 Range/Units 10:20 10:53 10:53 WBC 12.8 H (4.5-11.0) K/mm3 MCH 27 L (28-32) pg Lymph % (Auto) 13.2 L (13.4-35.0) % Seg Neutrophils % 83.4 H (40.0-70.0) % Seg Neutrophils # 10.7 H (1.8-7.7) K/mm3 Sodium 135 L (137-145) mmol/L Carbon Dioxide 11 L (22-30) mmol/L Creatinine 0.6 L (0.7-1.2) mg/dL Glucose 395 H (65-100) mg/dL POC Glucose 420 H (70-105) Assessment and Plan - Patient Problems (1) DKA (diabetic ketoacidoses) Current Visit: Yes Status: Acute Qualifiers: Diabetes mellitus complication detail: without coma Plan to address problem: DKA Protocol: Insulin drip, IVF resuscitation, monitor uop q shift, serial bmp, monitor anion gap, Admit to ICU The high probability of a clinically significant, sudden or life threatening deterioration of the [endocrine, neuro, renal] system(s) required my full and direct attention, intervention and personal management. The aggregate critical care time was [65] minutes. This time is in addition to time spent performing reported procedures but includes the following: [x] Data Review and interpretation [x] Patient assessment and monitoring of vital signs [x] Documentation [x] Medication orders and management (2) Metabolic acidosis Current Visit: Yes Status: Acute Plan to address problem: IV bicarbonate, IVF resuscitation, serial bmp (3) DVT prophylaxis Current Visit: Yes Status: Acute Plan to address problem: SCD to BLE while in bed.
[2018-02-05] MEDS ORDERED: SODIUM BICARBONATE IV ONE ×2 (12:10→18:01)
[2018-02-05] MEDS ORDERED: SODIUM BICARBONATE Syringe IV ONE ×2 (13:00→19:00)
[2018-02-05] MEDS: HumuLIN R 100 UNITS in NACL 0.9% 99 ML IV SCH ×2 (13:17→19:05)
[2018-02-05] MEDS ORDERED: NACL 0.9% 1000 ML 2,000 ML IV ONE (13:58)
[2018-02-05 14:39] LABS: BUN/Creatinine Ratio 24; Blood Urea Nitrogen 12 mg/dL (7-17); Calcium 8.5 mg/dL (8.4-10.2); Hemolysis Index 24
[2018-02-05] MEDS ORDERED: PROVENTIL IH PRN (14:45)
[2018-02-05] MEDS ORDERED: SODIUM CHLORIDE FLUSH SYRINGE 10 ML IV PRN (14:45)
[2018-02-05 16:51] LABS: Bacteria,Urine 1+ /HPF (Negative); Bilirubin,Urine NEG (Negative); Blood,Urine LG (Negative); Color,Urine Straw (Yellow); Mucus,Urine FEW /HPF; Urobilinogen,Urine < 2.0 mg/dL (<2.0)
[2018-02-05 17:51] LABS: BUN/Creatinine Ratio 22; Blood Urea Nitrogen 11 mg/dL (7-17); Calcium 8.3 mg/dL (8.4-10.2); Hemolysis Index 49
[2018-02-05] MEDS ORDERED: NACL 0.45% 2,000 ML IV SCH (18:00)
[2018-02-05] MEDS: D5W/0.45% NACL/KCL 20 MEQ 20 MEQ/1,000 ML BAG IV SCH (18:31)
[2018-02-05] MEDS ORDERED: ZOFRAN ONE (19:42)
[2018-02-05] MEDS ORDERED: ZOFRAN IV PRN (20:11)
[2018-02-05] MEDS ORDERED: TORADOL IV PRN (20:25)
[2018-02-05 21:00] LABS: BUN/Creatinine Ratio 18; Blood Urea Nitrogen 9 mg/dL (7-17); Calcium 8.1 mg/dL (8.4-10.2); Hemolysis Index 69
[2018-02-05] MEDS: MORPHINE IV PRN (21:23)
[2018-02-05] MEDS ORDERED: REGLAN IV ONE (21:56)
[2018-02-05] MEDS: ROCEPHIN/NS 1 GM/50 ML 1 GM/50 ML BAG IV SCH (22:12)
[2018-02-05] MEDS: SODIUM CHLORIDE FLUSH SYRINGE 10 ML IV SCH (22:13)
[2018-02-05] MEDS ORDERED: PHENERGAN PO PRN (22:21)
[2018-02-05 23:53] LABS: BUN/Creatinine Ratio 23; Blood Urea Nitrogen 9 mg/dL (7-17); Calcium 8.4 mg/dL (8.4-10.2); Hemolysis Index 51
[2018-02-06] MEDS: HumuLIN R 100 UNITS in NACL 0.9% 99 ML IV SCH ×2 (02:21→18:58)
[2018-02-06] MEDS: D5W/0.45% NACL/KCL 20 MEQ 20 MEQ/1,000 ML BAG IV SCH ×2 (02:23→11:31)
[2018-02-06] MEDS ORDERED: REGLAN ONE (03:17)
[2018-02-06] MEDS: MORPHINE IV PRN ×3 (03:26→21:13)
[2018-02-06] MEDS: ZOFRAN IV PRN ×3 (03:27→21:12)
[2018-02-06] MEDS: PHENERGAN PR PRN ×2 (04:03→21:36)
[2018-02-06 08:50] LABS: BUN/Creatinine Ratio 28; Blood Urea Nitrogen 11 mg/dL (7-17); Calcium 8.2 mg/dL (8.4-10.2); Hemolysis Index 59
[2018-02-06] MEDS: ROCEPHIN/NS 1 GM/50 ML 1 GM/50 ML BAG IV SCH (10:14)
[2018-02-06] MEDS: SODIUM CHLORIDE FLUSH SYRINGE 10 ML IV SCH ×2 (10:14→21:13)
--- NOTE | 2018-02-06 13:46 | Progress Note ---
Assessment and Plan Assessment and plan: DKA. Continue IV insulin drip and IV fluid hydration. DKA protocol. Patient still exhibits an iron gap and metabolic acidosis. The patient will be transitioned to long-acting insulin once DKA resolves. DVT prophylaxis. Continue SCDs. History Interval history: No new issues overnight. Hospitalist Physical - Constitutional Vitals: Temp Pulse Resp BP Pulse Ox 98.5 F 118 H 13 137/98 98 02/06/18 04:00 02/06/18 08:50 02/06/18 08:50 02/06/18 08:50 02/06/18 08:00 General appearance: Present: mild distress - EENT Eyes: Present: PERRL, EOM intact ENT: hearing intact, clear oral mucosa, dentition normal - Neck Neck: Present: supple, normal ROM - Respiratory Respiratory effort: normal Respiratory: bilateral: CTA - Cardiovascular Rhythm: regular Heart Sounds: Present: S1 & S2. Absent: gallop, rub - Extremities Extremities: no ischemia, No edema, Full ROM - Abdominal General gastrointestinal: soft, non-tender, non-distended, normal bowel sounds - Integumentary Integumentary: Present: clear, warm, dry - Neurologic Neurologic: CNII-XII intact, moves all extremities Results - Labs CBC & Chem 7: 02/05/18 10:53 02/06/18 08:11 Labs: Laboratory Last Values WBC 12.8 K/mm3 (4.5-11.0) H 02/05/18 10:53 RBC 4.97 M/mm3 (3.65-5.03) 02/05/18 10:53 Hgb 13.3 gm/dl (10.1-14.3) 02/05/18 10:53 Hct 41.8 % (30.3-42.9) 02/05/18 10:53 MCV 84 fl (79-97) 02/05/18 10:53 MCH 27 pg (28-32) L 02/05/18 10:53 MCHC 32 % (30-34) 02/05/18 10:53 RDW 14.0 % (13.2-15.2) 02/05/18 10:53 Plt Count 374 K/mm3 (140-440) 02/05/18 10:53 Lymph % (Auto) 13.2 % (13.4-35.0) L 02/05/18 10:53 [place] % (Auto) 1.9 % (0.0-7.3) 02/05/18 10:53 Eos % (Auto) 0.7 % (0.0-4.3) 02/05/18 10:53 Baso % (Auto) 0.8 % (0.0-1.8) 02/05/18 10:53 Lymph # 1.7 K/mm3 (1.2-5.4) 02/05/18 10:53 [place] # 0.2 K/mm3 (0.0-0.8) 02/05/18 10:53 Eos # 0.1 K/mm3 (0.0-0.4) 02/05/18 10:53 Baso # 0.1 K/mm3 (0.0-0.1) 02/05/18 10:53 Seg Neutrophils % 83.4 % (40.0-70.0) H 02/05/18 10:53 Seg Neutrophils # 10.7 K/mm3 (1.8-7.7) H 02/05/18 10:53 Sodium 139 mmol/L (137-145) 02/06/18 08:11 Potassium 4.0 mmol/L (3.6-5.0) 02/06/18 08:11 Chloride 110.0 mmol/L (98-107) H 02/06/18 08:11 Carbon Dioxide 14 mmol/L (22-30) L 02/06/18 08:11 Anion Gap 19 mmol/L 02/06/18 08:11 BUN 11 mg/dL (7-17) 02/06/18 08:11 Creatinine 0.4 mg/dL (0.7-1.2) L 02/06/18 08:11 Estimated GFR > 60 ml/min 02/06/18 08:11 BUN/Creatinine Ratio 28 % 02/06/18 08:11 Glucose 131 mg/dL (65-100) H 02/06/18 08:11 POC Glucose 101 (70-105) 02/06/18 12:04 Hemoglobin A1c 15.0 % (4-6) H 02/05/18 23:18 Ketones Quantitative Moderate (Negative) 02/05/18 10:53 Calcium 8.2 mg/dL (8.4-10.2) L 02/06/18 08:11 Phosphorus 3.00 mg/dL (2.5-4.5) 02/05/18 14:04 Magnesium 1.80 mg/dL (1.7-2.3) 02/05/18 14:04 Total Bilirubin 0.20 mg/dL (0.1-1.2) 02/05/18 10:53 AST 21 units/L (5-40) 02/05/18 10:53 ALT 13 units/L (7-56) 02/05/18 10:53 Alkaline Phosphatase 99 units/L (35-129) 02/05/18 10:53 Total Protein 8.1 g/dL (6.3-8.2) 02/05/18 10:53 Albumin 4.7 g/dL (3.9-5) 02/05/18 10:53 Albumin/Globulin Ratio 1.4 % 02/05/18 10:53 Lipase 15 units/L (13-60) 02/05/18 10:53 HCG, Quant < 2 mIU/mL (0-4) 02/05/18 10:53 Urine Color Straw (Yellow) 02/05/18 16:38 Urine Turbidity Clear (Clear) 02/05/18 16:38 Urine pH 5.0 (5.0-7.0) 02/05/18 16:38 Ur Specific [place] 1.011 (1.003-1.030) 02/05/18 16:38 Urine Protein 30 mg/dl mg/dL (Negative) 02/05/18 16:38 Urine Glucose (UA) >=500 mg/dL (Negative) 02/05/18 16:38 Urine Ketones 80 mg/dL (Negative) 02/05/18 16:38 Urine Blood Lg (Negative) 02/05/18 16:38 Urine Nitrite Neg (Negative) 02/05/18 16:38 Urine Bilirubin Neg (Negative) 02/05/18 16:38 Urine Urobilinogen < 2.0 mg/dL (<2.0) 02/05/18 16:38 Ur Leukocyte Esterase Neg (Negative) 02/05/18 16:38 Urine WBC (Auto) 4.0 /HPF (0.0-6.0) 02/05/18 16:38 Urine RBC (Auto) 2.0 /HPF (0.0-6.0) 02/05/18 16:38 U Epithel Cells (Auto) 2.0 /HPF (0-13.0) 02/05/18 16:38 Urine Bacteria (Auto) 1+ /HPF (Negative) 02/05/18 16:38 Urine Mucus Few /HPF 02/05/18 16:38
[2018-02-06 14:57] LABS: BUN/Creatinine Ratio 33; Blood Urea Nitrogen 10 mg/dL (7-17); Calcium 8.1 mg/dL (8.4-10.2); Hemolysis Index 16
--- NOTE | 2018-02-06 18:10 | Event Note ---
Date: 02/06/18 get stat [facility] closing - transition to long acting formulation and SSI per attending
[2018-02-06 18:42] LABS: BUN/Creatinine Ratio 23; Blood Urea Nitrogen 9 mg/dL (7-17); Calcium 8.3 mg/dL (8.4-10.2); Hemolysis Index 8
[2018-02-06] MEDS ORDERED: K-DUR PO SCH (20:00)
[2018-02-06] MEDS ORDERED: NS/KCL 40MEQ 40 MEQ/1,000 ML BAG IV SCH (20:00)
[2018-02-06] MEDS: KCL 10MEQ/100ML 10 MEQ/100 ML BAG IV SCH ×3 (21:12→23:22)
[2018-02-06] MEDS ORDERED: HumuLIN R SUB-Q SCH (22:00)
[2018-02-06] MEDS ORDERED: MORPHINE IV ONE (22:36)
[2018-02-06] MEDS: PROTONIX IV SCH (22:51)
--- NOTE | 2018-02-06 23:23 | XRay Report ---
FINAL REPORT EXAM: XR ABDOMEN 1V AP HISTORY: ABD PAIN COMPARISON: CT abdomen pelvis October 2017. FINDINGS: AP views of the abdomen obtained. Gas scattered within non dilated bowl loops. No gross pathologic ca lcifications. IMPRESSION: Nonobstructive bowel gas pattern.
[2018-02-07] MEDS: KCL 10MEQ/100ML 10 MEQ/100 ML BAG IV SCH (00:14)
[2018-02-07] MEDS: PHENERGAN PR PRN (03:54)
[2018-02-07] MEDS: MORPHINE IV PRN ×3 (03:54→14:00)
[2018-02-07] MEDS ORDERED: MORPHINE IV ONE (05:23)
[2018-02-07] MEDS: ZOFRAN IV PRN (08:46)
[2018-02-07 09:24] LABS: BUN/Creatinine Ratio 10; Blood Urea Nitrogen 5 mg/dL (7-17); Calcium 8.9 mg/dL (8.4-10.2); Hemolysis Index 14
[2018-02-07] MEDS ORDERED: D50W (25GM) Syringe IV PRN (09:38)
[2018-02-07] MEDS ORDERED: NACL 0.9% 1000 ML 1,000 ML IV SCH (10:00)
[2018-02-07] MEDS: ROCEPHIN/NS 1 GM/50 ML 1 GM/50 ML BAG IV SCH (10:22)
[2018-02-07] MEDS: PROTONIX IV SCH ×2 (10:22→22:02)
[2018-02-07] MEDS: SODIUM CHLORIDE FLUSH SYRINGE 10 ML IV SCH ×2 (10:25→22:01)
[2018-02-07] MEDS: HumuLIN R SUB-Q SCH ×3 (11:30→22:08)
[2018-02-07] MEDS ORDERED: REGLAN IV PRN (11:43)
--- NOTE | 2018-02-07 11:45 | Progress Note ---
Assessment and Plan Assessment and plan: DKA. Resolved. The patient will be transitioned to her home regimen of 70/30 insulin 20 units twice a day. The patient will be transferred to the floor. Diabetic gastroparesis. We will start Reglan IV every 6 hours. Abdominal pain. Etiology likely secondary to above. Check CT scan of the abdomen and pelvis. DVT prophylaxis. Continue SCDs. History Interval history: No new issues overnight. She complains of nausea but no vomiting. Hospitalist Physical - Constitutional Vitals: Temp Pulse Resp BP Pulse Ox 98.3 F 112 H 17 133/99 100 02/07/18 08:00 02/07/18 10:00 02/07/18 10:00 02/07/18 10:00 02/07/18 10:00 General appearance: Present: no acute distress - EENT Eyes: Present: PERRL, EOM intact ENT: hearing intact, clear oral mucosa, dentition normal - Neck Neck: Present: supple, normal ROM - Respiratory Respiratory effort: normal Respiratory: bilateral: CTA - Cardiovascular Rhythm: regular Heart Sounds: Present: S1 & S2. Absent: gallop, rub - Extremities Extremities: no ischemia, No edema, Full ROM - Abdominal General gastrointestinal: soft, non-tender, non-distended, normal bowel sounds - Integumentary Integumentary: Present: clear, warm, dry - Neurologic Neurologic: CNII-XII intact, moves all extremities Results - Labs CBC & Chem 7: 02/05/18 10:53 02/07/18 09:01 Labs: Laboratory Last Values WBC 12.8 K/mm3 (4.5-11.0) H 02/05/18 10:53 RBC 4.97 M/mm3 (3.65-5.03) 02/05/18 10:53 Hgb 13.3 gm/dl (10.1-14.3) 02/05/18 10:53 Hct 41.8 % (30.3-42.9) 02/05/18 10:53 MCV 84 fl (79-97) 02/05/18 10:53 MCH 27 pg (28-32) L 02/05/18 10:53 MCHC 32 % (30-34) 02/05/18 10:53 RDW 14.0 % (13.2-15.2) 02/05/18 10:53 Plt Count 374 K/mm3 (140-440) 02/05/18 10:53 Lymph % (Auto) 13.2 % (13.4-35.0) L 02/05/18 10:53 [place] % (Auto) 1.9 % (0.0-7.3) 02/05/18 10:53 Eos % (Auto) 0.7 % (0.0-4.3) 02/05/18 10:53 Baso % (Auto) 0.8 % (0.0-1.8) 02/05/18 10:53 Lymph # 1.7 K/mm3 (1.2-5.4) 02/05/18 10:53 [place] # 0.2 K/mm3 (0.0-0.8) 02/05/18 10:53 Eos # 0.1 K/mm3 (0.0-0.4) 02/05/18 10:53 Baso # 0.1 K/mm3 (0.0-0.1) 02/05/18 10:53 Seg Neutrophils % 83.4 % (40.0-70.0) H 02/05/18 10:53 Seg Neutrophils # 10.7 K/mm3 (1.8-7.7) H 02/05/18 10:53 Sodium 140 mmol/L (137-145) 02/07/18 09:01 Potassium 3.7 mmol/L (3.6-5.0) D 02/07/18 09:01 Chloride 106.9 mmol/L (98-107) 02/07/18 09:01 Carbon Dioxide 18 mmol/L (22-30) L 02/07/18 09:01 Anion Gap 19 mmol/L 02/07/18 09:01 BUN 5 mg/dL (7-17) L 02/07/18 09:01 Creatinine 0.5 mg/dL (0.7-1.2) L 02/07/18 09:01 Estimated GFR > 60 ml/min 02/07/18 09:01 BUN/Creatinine Ratio 10 % 02/07/18 09:01 Glucose 96 mg/dL (65-100) 02/07/18 09:01 POC Glucose 172 (70-105) H 02/07/18 10:44 Hemoglobin A1c 15.0 % (4-6) H 02/05/18 23:18 Ketones Quantitative Moderate (Negative) 02/05/18 10:53 Calcium 8.9 mg/dL (8.4-10.2) 02/07/18 09:01 Phosphorus 3.00 mg/dL (2.5-4.5) 02/05/18 14:04 Magnesium 1.80 mg/dL (1.7-2.3) 02/05/18 14:04 Total Bilirubin 0.20 mg/dL (0.1-1.2) 02/05/18 10:53 AST 21 units/L (5-40) 02/05/18 10:53 ALT 13 units/L (7-56) 02/05/18 10:53 Alkaline Phosphatase 99 units/L (35-129) 02/05/18 10:53 Total Protein 8.1 g/dL (6.3-8.2) 02/05/18 10:53 Albumin 4.7 g/dL (3.9-5) 02/05/18 10:53 Albumin/Globulin Ratio 1.4 % 02/05/18 10:53 Lipase 15 units/L (13-60) 02/05/18 10:53 HCG, Quant < 2 mIU/mL (0-4) 02/05/18 10:53 Urine Color Straw (Yellow) 02/05/18 16:38 Urine Turbidity Clear (Clear) 02/05/18 16:38 Urine pH 5.0 (5.0-7.0) 02/05/18 16:38 Ur Specific [place] 1.011 (1.003-1.030) 02/05/18 16:38 Urine Protein 30 mg/dl mg/dL (Negative) 02/05/18 16:38 Urine Glucose (UA) >=500 mg/dL (Negative) 02/05/18 16:38 Urine Ketones 80 mg/dL (Negative) 02/05/18 16:38 Urine Blood Lg (Negative) 02/05/18 16:38 Urine Nitrite Neg (Negative) 02/05/18 16:38 Urine Bilirubin Neg (Negative) 02/05/18 16:38 Urine Urobilinogen < 2.0 mg/dL (<2.0) 02/05/18 16:38 Ur Leukocyte Esterase Neg (Negative) 02/05/18 16:38 Urine WBC (Auto) 4.0 /HPF (0.0-6.0) 02/05/18 16:38 Urine RBC (Auto) 2.0 /HPF (0.0-6.0) 02/05/18 16:38 U Epithel Cells (Auto) 2.0 /HPF (0-13.0) 02/05/18 16:38 Urine Bacteria (Auto) 1+ /HPF (Negative) 02/05/18 16:38 Urine Mucus Few /HPF 02/05/18 16:38
--- NOTE | 2018-02-07 15:05 | Cat Scan Report ---
FINAL REPORT PROCEDURE: CT ABDOMEN PELVIS WO CON TECHNIQUE: Computerized axial tomography of the abdomen and pelvis was performed without intravenous contrast. This study is performed without intravascular contrast material and its sensitivity for ab dominal and pelvic pathology, including neoplasms, inflammation, abscess, free fluid, thrombosis, art erial dissection and infarction, is reduced compared with a contrast enhanced study. HISTORY: abd pain COMPARISON: No prior studies are available for comparison. FINDINGS: Lower Lung steele: No focal abnormality seen. Upper Abdomen: There is small area of decreased density seen anteriorly in the left lobe of the liver adjacent to the right side of the falciform ligament. This extends over approximately 1.6 centimeter s and appears a little more prominent or larger than it did on the prior study. This is a common area for focal fatty infiltration of the liver and may represent this. Other masses are not entirely excl uded. The liver is otherwise unremarkable. The gallbladder, the adrenal glands, the pancreas and the spleen are unremarkable. Kidneys, Ureters and Urinary bladder: No abnormalities are seen. Retroperitoneum: Abdominal aorta appears normal. Nonspecific subcentimeter lymph nodes are seen in the retroperitoneum. No pathologically enlarged lym ph nodes are identified. Bowel: No abnormalities are seen. No evidence of bowel obstruction, ascites or free intraperitoneal g as. Normal-appearing appendix seen in the right lower quadrant. Reproductive organs: Uterus and adnexa are unremarkable. Other: No acute bony abnormalities are identified. IMPRESSION: Area of decreased density seen anterior aspect left lobe of the liver along the right side of the fal ciform ligament as described. This is a common area for focal fatty infiltration and may represent th at. This does appear a little more prominent than it did on the prior study and therefore additional imaging is suggested. Ultrasound of the liver is suggested for further evaluation. No other abnormalities are seen.
[2018-02-08 04:55] LABS: Basophils # (Auto) 0.1 K/mm3 (0.0-0.1); Basophils % (Auto) 0.8 % (0.0-1.8); Eosinophils # (Auto) 0.1 K/mm3 (0.0-0.4); Eosinophils % (Auto) 0.9 % (0.0-4.3); Hematocrit 35.4 % (30.3-42.9); Hemoglobin 11.6 gm/dl (10.1-14.3); Lymphocytes # (Auto) 2.9 K/mm3 (1.2-5.4); Lymphocytes % (Auto) 38.7 % (13.4-35.0); Mean Corpuscular HGB Conc 33 % (30-34); Mean Corpuscular Hemoglobin 27 pg (28-32); Mean Corpuscular Volume 82 fl (79-97); Monocytes # (Auto) 0.6 K/mm3 (0.0-0.8); Monocytes % (Auto) 8.4 % (0.0-7.3); Platelet Count 341 K/mm3 (140-440); Red Blood Count 4.33 M/mm3 (3.65-5.03); Red Cell Distribution Width 14.1 % (13.2-15.2)
[2018-02-08 05:18] LABS: BUN/Creatinine Ratio 13; Blood Urea Nitrogen 5 mg/dL (7-17); Calcium 8.4 mg/dL (8.4-10.2); Hemolysis Index 3
[2018-02-08] MEDS: HumuLIN R SUB-Q SCH ×2 (09:05→11:54)
[2018-02-08] MEDS: PROTONIX IV SCH (09:49)
[2018-02-08] MEDS: ROCEPHIN/NS 1 GM/50 ML 1 GM/50 ML BAG IV SCH (09:49)
[2018-02-08] MEDS: ZOFRAN IV PRN (09:50)
[2018-02-08] MEDS: SODIUM CHLORIDE FLUSH SYRINGE 10 ML IV SCH (09:51)
--- NOTE | 2018-02-08 09:54 | Discharge Summary ---
Providers - Providers Date of Admission: 02/05/18 14:45 Date of discharge: 02/08/18 Attending physician: EZRA CULVER 02/05/18 15:09 PICC Line Insertion [Consult to PICC Line RN] [CONS] Routine Reason For Exam: dka Type Line:: PICC 02/05/18 21:51 Consult to Physician [CONS] Urgent Comment: Consulting Provider: BERTA STRAUSS Physician Instructions: Reason For Exam: ccu admit Primary care physician: RELATIONS MANAGER Hospitalization Reason for admission: DKA Condition: Stable Hospital course: 23 YO Female with DM, Noncompliance presents to ED w/ c/o nausea, multiple episodes of vomiting, as well as abdominal discomfort after multiple episodes of vomiting over the past 1 day with persistent symptoms over the same time frame. Pt transported to [facility] for further care and evaluation. Pt seen and evaluated in ED and found to have DKA, as well as Metabolic Acidosis. Pt admitted to ICU and initiated on DKA Protocol. Pt denied fever, chills, CP, Palpitations, Trauma, hemoptysis, BRBPR, Skin rash, or recent ill contacts. The patient was treated with IV insulin drip and IV fluids. DKA resolved and patient was transitioned to her home medication of long-acting 70/30 insulin 20 twice a day. The patient was noted to have nausea and vomiting and abdominal discomfort likely related to diabetic gastroparesis. Patient's symptoms improved with the addition of Reglan. Patient is felt to have received maximal hospital benefit and will be discharged home. Dedicated discharge time 32 minutes. Disposition: - TO HOME OR SELFCARE Time spent for discharge: 32 - Discharge Diagnoses (1) Diabetic gastroparesis Status: Acute (2) DKA (diabetic ketoacidoses) Status: Acute Qualifiers: Diabetes mellitus complication detail: without coma (3) Diabetes mellitus type 1 Status: Acute (4) Hyperglycemia Status: Acute Core Measure Documentation - Palliative Care Palliative Care/ Comfort Measures: Not Applicable - Core Measures Any of the following diagnoses?: none Exam - Constitutional Vitals: Temp Pulse Resp BP Pulse Ox 98.7 F 99 H 18 138/73 97 02/08/18 06:20 02/08/18 06:20 02/08/18 06:20 02/08/18 06:20 02/08/18 06:20 General appearance: Present: no acute distress, well-nourished - EENT Eyes: Present: PERRL ENT: hearing intact, clear oral mucosa - Neck Neck: Present: supple, normal ROM - Respiratory Respiratory effort: normal Respiratory: bilateral: CTA - Cardiovascular Heart Sounds: Present: S1 & S2. Absent: rub, click - Extremities Extremities: pulses symmetrical, No edema Peripheral Pulses: within normal limits - Abdominal General gastrointestinal: Present: soft, non-tender, non-distended, normal bowel sounds Female genitourinary: Present: normal - Integumentary Integumentary: Present: clear, warm, dry - Musculoskeletal Musculoskeletal: gait normal, strength equal bilaterally - Psychiatric Psychiatric: appropriate mood/affect, intact judgment & insight - Neurologic Neurologic: CNII-XII intact, moves all extremities Plan Activity: no restrictions Weight Bearing Status: Full Weight Bearing Diet: diabetic Follow up with: PRIMARY CARE,MD [Primary Care Provider] - 3-5 Days Prescriptions: Insulin NPH/Regular [NovoLIN 70/30] 20 unit SQ BIDDIAB #1 vial Metoclopramide [Reglan] 10 mg PO ACHS #30 tablet Ondansetron (Nf) [Zofran TAB] 8 mg PO Q8HR PRN #30 tablet PRN Reason: Nausea And Vomiting Promethazine [Phenergan TAB] 25 mg PO Q6H PRN #10 tablet PRN Reason: Nausea And Vomiting
[2018-02-08 11:57] VITALS: BP 119/85
== END 2018-02-08 14:00 | disposition home or self-care (01) | DRG 639 ==
LOC: ED 09:49 → CC1 14:45 → 3A 02-07 11:41
PROVIDERS: ADMIT Internal Medicine; ATTEND Hospitalist
DX: E10.10 Type 1 diabetes mellitus with ketoacidosis without coma (principal); E10.43 Type 1 diabetes mellitus with diabetic autonomic (poly)neuropathy; K31.84 Gastroparesis; Z91.19 Patient's noncompliance with other medical treatment and regimen; Z83.3 Family history of diabetes mellitus; Z82.49 Family history of ischemic heart disease and other diseases of the circulatory system
CPT/HCPCS: 36415; 74018; 74176; 80048; 80053; 81001; 82010; 82962; 83036; 83690; 83735; 84100; 84702; 85025; G0378; C9113; J0696; J1815; J1885; J2270; J2405; J2765; J3480; J7030; Q0169

== ENCOUNTER 2018-06-15 02:28 | Emergency (ER) | payer OTHER ==
[2018-06-15 02:32] VITALS: BP 110/74
[2018-06-15 02:54] LABS: Basophils # (Auto) 0.1 K/mm3 (0.0-0.1); Basophils % (Auto) 0.8 % (0.0-1.8); Eosinophils # (Auto) 0.4 K/mm3 (0.0-0.4); Eosinophils % (Auto) 5.4 % (0.0-4.3); Hematocrit 38.3 % (30.3-42.9); Hemoglobin 12.9 gm/dl (10.1-14.3); Lymphocytes # (Auto) 2.6 K/mm3 (1.2-5.4); Lymphocytes % (Auto) 32.7 % (13.4-35.0); Mean Corpuscular HGB Conc 34 % (30-34); Mean Corpuscular Volume 84 fl (79-97); Monocytes # (Auto) 0.5 K/mm3 (0.0-0.8); Monocytes % (Auto) 6.5 % (0.0-7.3); Platelet Count 302 K/mm3 (140-440); Red Blood Count 4.58 M/mm3 (3.65-5.03); Red Cell Distribution Width 13.7 % (13.2-15.2)
[2018-06-15 04:09] LABS: Bilirubin,Urine NEG (Negative); Blood,Urine NEG (Negative); Color,Urine Straw (Yellow); Mucus,Urine FEW /HPF; Protein,Urine <15 mg/dL mg/dL (Negative); Urobilinogen,Urine < 2.0 mg/dL (<2.0)
[2018-06-15 07:24] LABS: Alanine Aminotransferase 12 units/L (7-56); Albumin 4.1 g/dL (3.9-5); BUN/Creatinine Ratio 24; Blood Urea Nitrogen 12 mg/dL (7-17); Calcium 8.9 mg/dL (8.4-10.2); Hemolysis Index 11
--- NOTE | 2018-06-15 08:10 | Emergency Department Report ---
ED Back Pain/Injury HPI - General Chief Complaint: Abdominal Pain Stated Complaint: BACK/LOWER ABD PAIN Time Seen by Provider: 06/15/18 07:25 Source: patient Limitations: No Limitations - History of Present Illness Initial Comments: This is a 23-year-old female presents to ED complaining of low back pain the past 2 days. Patient [place] and thinks she accidentally strained her back muscle. She denies fevers chills nausea vomiting abdominal pain, dysuria MD Complaint: back pain -: Sudden Place: work Radiation: none Severity: mild Severity scale (0 -10): 4 Quality: aching Consistency: intermittent Improves With: immobilization Worsens With: movement Associated Symptoms: denies: confusion, weakness, numbness, difficulty walking, difficulty urinating, incontinence - Related Data Previous Rx's Medication Instructions Recorded Last Taken Type Insulin NPH/Regular [NovoLIN 70/30] 20 unit SQ BIDDIAB #1 vial 02/08/18 Unknown Rx Insulin Regular, Human [HumuLIN R] 0 units SUB-Q ACHS units 02/08/18 Unknown Rx Metoclopramide [Reglan] 10 mg PO ACHS #30 tablet 02/08/18 Unknown Rx Ondansetron (Nf) [Zofran TAB] 8 mg PO Q8HR PRN #30 tablet 02/08/18 Unknown Rx Promethazine [Phenergan] 25 mg PO Q6H PRN #10 tablet 02/08/18 Unknown Rx Cyclobenzaprine [Flexeril] 10 mg PO QHS PRN #15 tablet 06/15/18 Unknown Rx Ibuprofen [Motrin] 800 mg PO Q8HR #20 tablet 06/15/18 Unknown Rx Allergies Allergy/AdvReac Type Severity Reaction Status Date / Time No Known Allergies Allergy Verified 03/05/16 22:42 ED Review of Systems ROS: Stated complaint: BACK/LOWER ABD PAIN Other details as noted in HPI Comment: All other systems reviewed and negative ED Past Medical Hx - Past Medical History Previous Medical History?: Yes Hx Hypertension: No Hx Congestive Heart Failure: No Hx Diabetes: Yes Hx Deep Vein Thrombosis: No Hx Renal Disease: No Hx Sickle Cell Disease: No Hx Seizures: No Hx Asthma: No Hx COPD: No Hx HIV: No - Surgical History Past Surgical History?: Yes Additional Surgical History: 2017 - Social History Smoking Status: Current Every Day Smoker Substance Use Type: None - Medications Home Medications: Home Medications Medication Instructions Recorded Confirmed Last Taken Type Insulin NPH/Regular [NovoLIN 70/30] 20 unit SQ BIDDIAB #1 vial 02/08/18 Unknown Rx Insulin Regular, Human [HumuLIN R] 0 units SUB-Q ACHS units 02/08/18 Unknown Rx Metoclopramide [Reglan] 10 mg PO ACHS #30 tablet 02/08/18 Unknown Rx Ondansetron (Nf) [Zofran TAB] 8 mg PO Q8HR PRN #30 tablet 02/08/18 Unknown Rx Promethazine [Phenergan] 25 mg PO Q6H PRN #10 tablet 02/08/18 Unknown Rx Cyclobenzaprine [Flexeril] 10 mg PO QHS PRN #15 tablet 06/15/18 Unknown Rx Ibuprofen [Motrin] 800 mg PO Q8HR #20 tablet 06/15/18 Unknown Rx ED Physical Exam - General Limitations: No Limitations General appearance: alert, in no apparent distress - Head Head exam: Present: atraumatic, normocephalic - Eye Eye exam: Present: normal appearance - ENT ENT exam: Present: mucous membranes moist - Neck Neck exam: Present: normal inspection - Respiratory Respiratory exam: Present: normal lung sounds bilaterally. Absent: respiratory distress - Cardiovascular Cardiovascular Exam: Present: regular rate, normal rhythm. Absent: systolic murmur, diastolic murmur, rubs, gallop - GI/Abdominal GI/Abdominal exam: Present: soft, normal bowel sounds. Absent: distended, tenderness, guarding - Extremities Exam Extremities exam: Present: normal inspection - Back Exam Back exam: Present: normal inspection, full ROM, tenderness (to the palpation of the latissimus dorsi muscles). Absent: CVA tenderness (R), CVA tenderness (L) - Neurological Exam Neurological exam: Present: alert, oriented X3, normal gait - Psychiatric Psychiatric exam: Present: normal affect, normal mood - Skin Skin exam: Present: warm, dry, intact, normal color. Absent: rash ED Course Vital Signs 06/15/18 02:31 Temperature 98.3 F Pulse Rate 125 H Respiratory 18 Rate Blood Pressure 110/74 O2 Sat by Pulse 100 Oximetry ED Medical Decision Making - Lab Data Result diagrams: 06/15/18 02:37 05/07/19 02:37 - Medical Decision Making 23-year-old female presents with low back muscle strain ED course: All labs are within normal limits, urinalysis and test negative Vital signs are normal patient is in no acute distress Discussed with patient follow-up with primary care physician. Discussed the patient and take medications as prescribed. Patient has no neurological deficit. Patient is alert and oriented 3 and understands all instructions given. Discussed drowsiness effect of Flexeril makes her drowsy and not to operate machinery while taking flexeril Critical care attestation.: If time is entered above; I have spent that time in minutes in the direct care of this critically ill patient, excluding procedure time. ED Disposition Clinical Impression: Musculoskeletal back pain, Strain of muscle, fascia and tendon of lower back, initial encounter Disposition: TO HOME OR SELFCARE Is pt being admited?: No Does the pt Need Aspirin: No Condition: Stable Instructions: Abdominal Pain (ED), Muscle Strain (ED), Musculoskeletal Pain (ED), Trigger Point Pain (ED) Additional Instructions: Make sure to follow up with the primary care physician as discussed. Take all your medications as you've been prescribed. If you have any worsening symptoms or develop new symptoms please return to ED immediately. Prescriptions: Cyclobenzaprine [Flexeril] 10 mg PO QHS PRN #15 tablet PRN Reason: Muscle Spasm Ibuprofen [Motrin] 800 mg PO Q8HR #20 tablet Referrals: MATHEUS JAUREGUI MD [Primary Care Provider] - 3-5 Days Forms: Accompanied Note, Work/School Release Form(ED) Time of Disposition: 08:20
== END 2018-06-15 08:27 | disposition home or self-care (01) ==
LOC: ED 02:28
DX: S39.012A Strain of muscle, fascia and tendon of lower back, initial encounter (principal); M79.10 Myalgia, unspecified site; E11.9 Type 2 diabetes mellitus without complications; F17.200 Nicotine dependence, unspecified, uncomplicated; Z79.4 Long term (current) use of insulin; X50.0XXA Overexertion from strenuous movement or load, initial encounter; Y93.89 Activity, other specified; Y92.69 Other specified industrial and construction area as the place of occurrence of the external cause; Y99.8 Other external cause status
CPT/HCPCS: 36415; 80053; 81001; 84703; 85025; 99283

== ENCOUNTER 2018-09-28 20:32 | Emergency (ER) | payer MEDICAID, OTHER ==
--- NOTE | 2018-09-28 20:41 | Emergency Department Report ---
Blank Doc - Documentation Documentation: This is a 23-year-old female that presents with right side facial pain and gin gival swelling s/p dental procedure. This initial assessment/diagnostic orders/clinical plan/treatment(s) is/are subject to change based on patient's health status, clinical progression and re-assessment by fellow clinical providers in the ED. Further treatment and workup at subsequent clinical providers discretion. Patient/guardians urged not to elope from the ED as their condition may be serious if not clinically assessed and managed. Initial orders include: 1- Patient sent to [facility] for further evaluation and treatment 2- labs
[2018-09-28 20:59] LABS: Basophils % (Auto) 0.5 % (0.0-1.8); Eosinophils # (Auto) 0.1 K/mm3 (0.0-0.4); Eosinophils % (Auto) 2.3 % (0.0-4.3); Hemoglobin 11.9 gm/dl (10.1-14.3); Lymphocytes % (Auto) 16.7 % (13.4-35.0); Mean Corpuscular HGB Conc 33 % (30-34); Mean Corpuscular Volume 85 fl (79-97); Monocytes # (Auto) 0.4 K/mm3 (0.0-0.8); Monocytes % (Auto) 5.8 % (0.0-7.3); Platelet Count 361 K/mm3 (140-440); Red Blood Count 4.22 M/mm3 (3.65-5.03); Red Cell Distribution Width 14.2 % (13.2-15.2)
[2018-09-28 21:31] LABS: BUN/Creatinine Ratio 22; Blood Urea Nitrogen 11 mg/dL (7-17); Calcium 9.1 mg/dL (8.4-10.2); Hemolysis Index 19
[2018-09-28] MEDS ORDERED: NACL 0.9% 1000 ML 1,000 ML IV ONE (22:10)
[2018-09-28] MEDS ORDERED: HumuLIN R IV ONE (22:10)
[2018-09-28] MEDS ORDERED: HumuLIN R SUB-Q ONE ×2 (22:11→23:12)
[2018-09-28] MEDS ORDERED: TORADOL IV ONE (22:12)
[2018-09-28] MEDS ORDERED: AUGMENTIN ORAL LIQD PO ONE (22:51)
--- NOTE | 2018-09-28 23:11 | Emergency Department Report ---
ED ENT HPI - General Chief complaint: Dental/Oral Stated complaint: TOOTHACHE/LUMP IN JAW Time Seen by Provider: 09/28/18 20:40 Source: patient Mode of arrival: Ambulatory Limitations: No Limitations - History of Present Illness Initial comments: 23-year-old female with past medical history of diabetes on insulin since the hospital complaining of a painful swelling to her right cheek 1 week. Patient had 4 teeth pulled 3 weeks ago including her wisdom teeth. She follow-up with her dentist about her symptoms and was told that it is locked jaw she needs to massage the area and continue the Tylenol and Motrin as needed for pain. Patient states that the swelling has continued to figure. No reports of fever. She has difficulty eating and she is unable to open her jaw completely. Patient takes patient takes Novolin 70/30 20 units in a.m. and daily at bedtime and NovoLog sliding scale. Patient has not had her evening dose of meds and present s with hyperglycemia. - Related Data Previous Rx's Medication Instructions Recorded Last Taken Type Insulin NPH/Regular [NovoLIN 70/30] 20 unit SQ BIDDIAB #1 vial 02/08/18 Unknown Rx Insulin Regular, Human [HumuLIN R] 0 units SUB-Q ACHS units 02/08/18 Unknown Rx Metoclopramide [Reglan] 10 mg PO ACHS #30 tablet 02/08/18 Unknown Rx Ondansetron (Nf) [Zofran TAB] 8 mg PO Q8HR PRN #30 tablet 02/08/18 Unknown Rx Promethazine [Phenergan] 25 mg PO Q6H PRN #10 tablet 02/08/18 Unknown Rx Cyclobenzaprine [Flexeril] 10 mg PO QHS PRN #15 tablet 06/15/18 Unknown Rx Ibuprofen [Motrin] 800 mg PO Q8HR #20 tablet 06/15/18 Unknown Rx Amoxicillin/Potassium Clav 1 each PO BID #20 tablet 09/29/18 Unknown Rx [Augmentin 875-125 Tablet] traMADol [Ultram 50 MG tab] 50 mg PO Q6HR PRN #20 tablet 09/29/18 Unknown Rx Allergies Allergy/AdvReac Type Severity Reaction Status Date / Time animal dander Allergy Unknown Verified 09/28/18 20:36 ED Dental HPI - General Chief complaint: Dental/Oral Stated complaint: TOOTHACHE/LUMP IN JAW Time Seen by Provider: 09/28/18 20:40 Source: patient Mode of arrival: Ambulatory Limitations: No Limitations - Related Data Previous Rx's Medication Instructions Recorded Last Taken Type Insulin NPH/Regular [NovoLIN 70/30] 20 unit SQ BIDDIAB #1 vial 02/08/18 Unknown Rx Insulin Regular, Human [HumuLIN R] 0 units SUB-Q ACHS units 02/08/18 Unknown Rx Metoclopramide [Reglan] 10 mg PO ACHS #30 tablet 02/08/18 Unknown Rx Ondansetron (Nf) [Zofran TAB] 8 mg PO Q8HR PRN #30 tablet 02/08/18 Unknown Rx Promethazine [Phenergan] 25 mg PO Q6H PRN #10 tablet 02/08/18 Unknown Rx Cyclobenzaprine [Flexeril] 10 mg PO QHS PRN #15 tablet 06/15/18 Unknown Rx Ibuprofen [Motrin] 800 mg PO Q8HR #20 tablet 06/15/18 Unknown Rx Amoxicillin/Potassium Clav 1 each PO BID #20 tablet 09/29/18 Unknown Rx [Augmentin 875-125 Tablet] traMADol [Ultram 50 MG tab] 50 mg PO Q6HR PRN #20 tablet 09/29/18 Unknown Rx Allergies Allergy/AdvReac Type Severity Reaction Status Date / Time animal dander Allergy Unknown Verified 09/28/18 20:36 ED Review of Systems ROS: Stated complaint: TOOTHACHE/LUMP IN JAW Other details as noted in HPI Comment: All other systems reviewed and negative ED Past Medical Hx - Past Medical History Previous Medical History?: Yes Hx Hypertension: No Hx Congestive Heart Failure: No Hx Diabetes: Yes Hx Deep Vein Thrombosis: No Hx Renal Disease: No Hx Sickle Cell Disease: No Hx Seizures: No Hx Asthma: No Hx COPD: No Hx HIV: No - Surgical History Past Surgical History?: Yes Additional Surgical History: 2017. wisdom teeth - Social History Smoking Status: Current Every Day Smoker Substance Use Type: None - Medications Home Medications: Home Medications Medication Instructions Recorded Confirmed Last Taken Type Insulin NPH/Regular [NovoLIN 70/30] 20 unit SQ BIDDIAB #1 vial 02/08/18 Unknown Rx Insulin Regular, Human [HumuLIN R] 0 units SUB-Q ACHS units 02/08/18 Unknown Rx Metoclopramide [Reglan] 10 mg PO ACHS #30 tablet 02/08/18 Unknown Rx Ondansetron (Nf) [Zofran TAB] 8 mg PO Q8HR PRN #30 tablet 02/08/18 Unknown Rx Promethazine [Phenergan] 25 mg PO Q6H PRN #10 tablet 02/08/18 Unknown Rx Cyclobenzaprine [Flexeril] 10 mg PO QHS PRN #15 tablet 06/15/18 Unknown Rx Ibuprofen [Motrin] 800 mg PO Q8HR #20 tablet 06/15/18 Unknown Rx Amoxicillin/Potassium Clav 1 each PO BID #20 tablet 09/29/18 Unknown Rx [Augmentin 875-125 Tablet] traMADol [Ultram 50 MG tab] 50 mg PO Q6HR PRN #20 tablet 09/29/18 Unknown Rx ED Physical Exam - General Limitations: No Limitations - Other Other exam information: General: No acute distress Head: Atraumatic normocephalic Eyes: Normal appearance, pupils equal reactive to light, extraocular movements intact ENT: Normal oropharynx, normal posterior pharynx. Patient has tenderness with firm swelling to the right cheek area At the Area of the parotid gland with trismus. Neck: Normal appearance, no C-spine tenderness, no meningismus Chest: Clear to auscultation bilaterally, no wheezes, rales, or crackles Cardiovascular: Regular rate and rhythm Abdomen: Soft, nondistended, nontender, no rebound or guarding, normal bowel sounds Back: Normal inspection, nontender Extremity: Normal inspection, no deformity, full range of motion Neuro: Alert and oriented 3, speech clear, no gross motor or sensory deficit Psychiatric: Normal affect Skin: No rash, warmth, or erythema ED Course Vital Signs 09/28/18 09/28/18 09/29/18 20:38 23:00 01:08 Temperature 97.7 F 98.5 F Pulse Rate 110 H 98 H Respiratory 18 16 16 Rate Blood Pressure 123/88 Blood Pressure 105/76 [Left] O2 Sat by Pulse 98 99 Oximetry ED Medical Decision Making - Lab Data Result diagrams: 09/28/18 20:50 09/28/18 20:50 Lab Results 09/28/18 09/28/18 09/28/18 Range/Units 20:50 20:50 20:50 WBC 6.2 (4.5-11.0) K/mm3 RBC 4.22 (3.65-5.03) M/mm3 Hgb 11.9 (10.1-14.3) gm/dl Hct 36.0 (30.3-42.9) % MCV 85 (79-97) fl MCH 28 (28-32) pg MCHC 33 (30-34) % RDW 14.2 (13.2-15.2) % Plt Count 361 (140-440) K/mm3 Lymph % (Auto) 16.7 (13.4-35.0) % [place] % (Auto) 5.8 (0.0-7.3) % Eos % (Auto) 2.3 (0.0-4.3) % Baso % (Auto) 0.5 (0.0-1.8) % Lymph # 1.0 L (1.2-5.4) K/mm3 [place] # 0.4 (0.0-0.8) K/mm3 Eos # 0.1 (0.0-0.4) K/mm3 Baso # 0.0 (0.0-0.1) K/mm3 Seg Neutrophils % 74.7 H (40.0-70.0) % Seg Neutrophils # 4.7 (1.8-7.7) K/mm3 VBG pH (7.320-7.420) Sodium 127 L (137-145) mmol/L Potassium 4.3 (3.6-5.0) mmol/L Chloride 88.7 L (98-107) mmol/L Carbon Dioxide 23 (22-30) mmol/L Anion Gap 20 mmol/L BUN 11 (7-17) mg/dL Creatinine 0.5 L (0.7-1.2) mg/dL Estimated GFR > 60 ml/min BUN/Creatinine Ratio 22 % Glucose 746 H* (65-100) mg/dL Calcium 9.1 (8.4-10.2) mg/dL HCG, Qual Negative (Negative) 09/28/18 Range/Units 22:54 WBC (4.5-11.0) K/mm3 RBC (3.65-5.03) M/mm3 Hgb (10.1-14.3) gm/dl Hct (30.3-42.9) % MCV (79-97) fl MCH (28-32) pg MCHC (30-34) % RDW (13.2-15.2) % Plt Count (140-440) K/mm3 Lymph % (Auto) (13.4-35.0) % [place] % (Auto) (0.0-7.3) % Eos % (Auto) (0.0-4.3) % Baso % (Auto) (0.0-1.8) % Lymph # (1.2-5.4) K/mm3 [place] # (0.0-0.8) K/mm3 Eos # (0.0-0.4) K/mm3 Baso # (0.0-0.1) K/mm3 Seg Neutrophils % (40.0-70.0) % Seg Neutrophils # (1.8-7.7) K/mm3 VBG pH 7.362 (7.320-7.420) Sodium (137-145) mmol/L Potassium (3.6-5.0) mmol/L Chloride (98-107) mmol/L Carbon Dioxide (22-30) mmol/L Anion Gap mmol/L BUN (7-17) mg/dL Creatinine (0.7-1.2) mg/dL Estimated GFR ml/min BUN/Creatinine Ratio % Glucose (65-100) mg/dL Calcium (8.4-10.2) mg/dL HCG, Qual (Negative) - Medical Decision Making Suspect the patient has parotitis. She will be instructed to suck on sour candy and covered with antibiotic. At this time she does not have any signs of sepsis, fever, or leukocytosis. repeat glucose 343 and should continue to trend downward pt will take her 70/30 insulin tonight - Differential Diagnosis parotitis, dental abscess, oral infection Critical Care Time: No Critical care attestation.: If time is entered above; I have spent that time in minutes in the direct care of this critically ill patient, excluding procedure time. ED Disposition Clinical Impression: Parotitis, acute, Hyperglycemia due to type 1 diabetes mellitus Disposition: TO HOME OR SELFCARE Is pt being admited?: No Does the pt Need Aspirin: No Condition: Stable Instructions: Diabetes Mellitus Type 2 in Adults (ED), Parotid Duct Obstruction (ED) Additional Instructions: Take the medications as prescribed. Follow-up with your doctor or with a doctor/clinic provided. Return is symptoms worsen as indicated by the discharge instructions. We gave you 10 units of a short acting insulin here today. f you take your insulin tonight make sure to check your sugar prior to your dose. You may need to eat a snack prior to bedtime since your home insulin contains both a short icing along and sling insulin. Prescriptions: Amoxicillin/Potassium Clav [Augmentin 875-125 Tablet] 1 each PO BID #20 tablet traMADol [Ultram 50 MG tab] 50 mg PO Q6HR PRN #20 tablet PRN Reason: Pain [facility] [Primary Care Provider] - 3-5 Days RAMBO SEE MD [Staff Physician] - 7-10 days (ENT ) Time of Disposition: 00:42
[2018-09-29 01:10] VITALS: BP 105/76
== END 2018-09-29 01:33 | disposition home or self-care (01) ==
LOC: ED 20:32
DX: K11.21 Acute sialoadenitis (principal); E10.65 Type 1 diabetes mellitus with hyperglycemia; F17.200 Nicotine dependence, unspecified, uncomplicated; Z79.4 Long term (current) use of insulin
CPT/HCPCS: 36415; 80048; 82805; 82962; 84703; 85025; 96372; 96374; 99283; J1885; J7030; J1815

== ENCOUNTER 2019-02-06 10:17 | Emergency (ER) | payer MEDICAID | END 2019-02-06 11:34 | disposition left against medical advice (07) | LOC: ED 10:17 | DX: R11.2 Nausea with vomiting, unspecified (principal); Z53.21 Procedure and treatment not carried out due to patient leaving prior to being seen by health care provider ==

== ENCOUNTER 2019-09-28 11:51 | Emergency (ER) | payer MEDICAID ==
[2019-09-28 13:00] VITALS: BP 117/81
--- NOTE | 2019-09-28 14:49 | Event Note ---
ED Screening Note Date of service: 09/28/19 Time: 14:45 ED Screening Note: 21-year-old female diabetic Presents the ED complaining of left flank pain. Patient states that she was unable to get her medication Patient was on insulin but states she has not been able to get her insulin for the past 2 days This initial assessment/diagnostic orders/clinical plan/treatment(s) is/are subject to change based on patients health status, clinical progression and re- assessment by fellow clinical providers in the ED. Further treatment and workup at subsequent clinical providers discretion. Patient/guardian urged not to elope from the ED as their condition may be serious if not clinically assessed and managed. Initial orders include: UA, UPT, CBC BMP
[2019-09-28 15:15] LABS: Bacteria,Urine 2+ /HPF (Negative); Bilirubin,Urine NEG (Negative); Blood,Urine NEG (Negative); Color,Urine Yellow (Yellow); Mucus,Urine FEW /HPF; Urobilinogen,Urine < 2.0 mg/dL (<2.0)
[2019-09-28 15:25] LABS: Basophils % (Auto) 0.7 % (0.0-1.8); Eosinophils # (Auto) 0.2 K/mm3 (0.0-0.4); Eosinophils % (Auto) 2.7 % (0.0-4.3); Hematocrit 36.8 % (30.3-42.9); Hemoglobin 12.2 gm/dl (10.1-14.3); Lymphocytes # (Auto) 1.7 K/mm3 (1.2-5.4); Mean Corpuscular HGB Conc 33 % (30-34); Mean Corpuscular Volume 85 fl (79-97); Monocytes # (Auto) 0.4 K/mm3 (0.0-0.8); Monocytes % (Auto) 5.8 % (0.0-7.3); Platelet Count 359 K/mm3 (140-440); Red Blood Count 4.34 M/mm3 (3.65-5.03); Red Cell Distribution Width 13.5 % (13.2-15.2)
[2019-09-28 15:42] LABS: Alanine Aminotransferase 9 units/L (7-56); Albumin 4.2 g/dL (3.9-5); Blood Urea Nitrogen 12 mg/dL (7-17); Calcium 8.9 mg/dL (8.4-10.2); Hemolysis Index 6
[2019-09-28 15:46] LABS: BUN/Creatinine Ratio 30
[2019-09-28] MEDS ORDERED: SODIUM CHLORIDE 0.9% 1000 ML 1,000 ML IV ONE (17:25)
--- NOTE | 2019-09-28 17:36 | Emergency Department Report ---
ED Abdominal Pain HPI - General Chief Complaint: Abdominal Pain Stated Complaint: N/V WEAKNESS Time Seen by Provider: 09/28/19 17:25 Source: patient Mode of arrival: Ambulatory Limitations: No Limitations - History of Present Illness Initial Comments: 24-year-old -Bar[place] female with a history of diabetes type 1 presents to the emergency room for abdominal pain with nausea and vomiting x3 days. Patient denies any vaginal bleeding or vaginal discharge. Patient denies any thirst reports that she has vomited x1 today does complain of some nausea. She reports her blood sugars been running in the high 200s. Patient states that the pain is better when she lies on her side and worse on her back. Patient is 1 para 1. MD Complaint: abdominal pain Location: suprapubic Radiation: none Severity scale (0 -10): 6 Quality: fullness (Tightness) Consistency: constant Improves With: other (Lying on her sides) Worsens With: rest (Lying on her back) Associated Symptoms: nausea, vomiting (times 1) - Related Data Previous Rx's Medication Instructions Recorded Last Taken Type Insulin NPH/Regular [NovoLIN 70/30] 20 unit SQ BIDDIAB #1 vial 02/08/18 Unknown Rx Insulin Regular, Human [HumuLIN R] 0 units SUB-Q ACHS units 02/08/18 Unknown Rx Metoclopramide [Reglan] 10 mg PO ACHS #30 tablet 02/08/18 Unknown Rx Ondansetron (Nf) [Zofran TAB] 8 mg PO Q8HR PRN #30 tablet 02/08/18 Unknown Rx Promethazine [Phenergan] 25 mg PO Q6H PRN #10 tablet 02/08/18 Unknown Rx Cyclobenzaprine [Flexeril] 10 mg PO QHS PRN #15 tablet 06/15/18 Unknown Rx Ibuprofen [Motrin] 800 mg PO Q8HR #20 tablet 06/15/18 Unknown Rx Amoxicillin/Potassium Clav 1 each PO BID #20 tablet 09/29/18 Unknown Rx [Augmentin 875-125 Tablet] traMADoL [Ultram 50 MG tab] 50 mg PO Q6HR PRN #20 tablet 09/29/18 Unknown Rx Vit,Calc78/Iron/Folic 1 each PO QDAY #90 tablet 09/28/19 Unknown Rx [Pretab 29 mg-1 mg Tablet] Allergies Allergy/AdvReac Type Severity Reaction Status Date / Time animal dander Allergy Unknown Verified 02/06/19 10:20 ED Review of Systems ROS: Stated complaint: N/V WEAKNESS Other details as noted in HPI ED Past Medical Hx - Past Medical History Hx Hypertension: No Hx Congestive Heart Failure: No Hx Diabetes: Yes Hx Deep Vein Thrombosis: No Hx Renal Disease: No Hx Sickle Cell Disease: No Hx Seizures: No Hx Asthma: No Hx COPD: No Hx HIV: No - Surgical History Additional Surgical History: 2017. wisdom teeth - Social History Smoking Status: Unknown if ever smoked Substance Use Type: None - Medications Home Medications: Home Medications Medication Instructions Recorded Confirmed Last Taken Type Insulin NPH/Regular [NovoLIN 70/30] 20 unit SQ BIDDIAB #1 vial 02/08/18 Unknown Rx Insulin Regular, Human [HumuLIN R] 0 units SUB-Q ACHS units 02/08/18 Unknown Rx Metoclopramide [Reglan] 10 mg PO ACHS #30 tablet 02/08/18 Unknown Rx Ondansetron (Nf) [Zofran TAB] 8 mg PO Q8HR PRN #30 tablet 02/08/18 Unknown Rx Promethazine [Phenergan] 25 mg PO Q6H PRN #10 tablet 02/08/18 Unknown Rx Cyclobenzaprine [Flexeril] 10 mg PO QHS PRN #15 tablet 06/15/18 Unknown Rx Ibuprofen [Motrin] 800 mg PO Q8HR #20 tablet 06/15/18 Unknown Rx Amoxicillin/Potassium Clav 1 each PO BID #20 tablet 09/29/18 Unknown Rx [Augmentin 875-125 Tablet] traMADoL [Ultram 50 MG tab] 50 mg PO Q6HR PRN #20 tablet 09/29/18 Unknown Rx Vit,Calc78/Iron/Folic 1 each PO QDAY #90 tablet 09/28/19 Unknown Rx [Pretab 29 mg-1 mg Tablet] ED Physical Exam - General Limitations: No Limitations ED Course Vital Signs 09/28/19 12:59 Temperature 98.5 F Pulse Rate 126 H Respiratory 16 Rate Blood Pressure 117/81 O2 Sat by Pulse 99 Oximetry ED Medical Decision Making - Lab Data Result diagrams: 09/28/19 15:09 09/28/19 15:09 - Radiology Data Radiology results: report reviewed Patient: [place] MR #: [id number] : 1995 Acct:[id number] Age/Sex: 24 / F ADM Date: 09/28/19 Loc: ED Attending Dr: Ordering Physician: OSVALDO ENGLAND Date of Service: 09/28/19 Procedure(s): US OB <= 14 weeks fetus Accession Number(s): [id number] cc: OSVALOD ENGLAND ULTRASOUND OBSTETRIC Indication: with pelvic pain Findings: Transabdominal imaging is performed There is a single, living intrauterine . [place]-rump length = 0.42 cm = 5 weeks, 1 day(s). Gestational sac measures 10.2 mm characteristic of a 5 week 5 day gestation heart rate is 100 beats per minute. The ovaries are normal. Small follicular cysts are noted in the right ovary There is no free fluid. Impression: Single, living intrauterine with estimated sonographic age of 5 weeks, 3 day(s). Signer Name: José Nice MD Signed: 09/28/2019 6:10 PM Workstation Name: [id number] Transcribed By: SS Dictated By: José Nice MD Electronically Authenticated By: José Nice MD Signed Date/Time: 09/28/191809 DD/ 07 TD/TT: - Medical Decision Making 24-year-old -[place] female with a history of diabetes type 1 presents to the emergency room for abdominal pain with nausea and vomiting x3 days. Patient denies any vaginal bleeding or vaginal discharge. Patient denies any thirst reports that she has vomited x1 today does complain of some nausea. She reports her blood sugars been running in the high 200s. Patient states that the pain is better when she lies on her side and worse on her back. Patient is grav brittaney 1 para 1. CBC CMP urinalysis, hCG. Positive hCG will do an ultrasound ultrasound shows she is 5 weeks and 3 days . Blood sugar was 333 patient's had initiated a bolus of normal saline. Ordered for a blood sugar [id number] after bolus. Patient is being signed out to nurse practitioner Magdaleno. Recommend patient to be on vitamins she needs to follow-up with an DIAGNOSTIC RADIOLOGIST sooner than later as she is high risk. Critical care attestation.: If time is entered above; I have spent that time in minutes in the direct care of this critically ill patient, excluding procedure time. ED Disposition Clinical Impression: Positive test, Hyperglycemia Disposition: DC- TO HOME OR SELFCARE Is pt being admited?: No Does the pt Need Aspirin: No Condition: Stable Instructions: Abdominal Pain (ED) Additional Instructions: Ultrasound shows you are 5 weeks and 3 days . Heart rate is 100. I would like for you to start your vitamins. Is very important that you are compliant with all your medications. Is very important you follow-up with an DIAGNOSTIC RADIOLOGIST early in your as you are high risk. Be sure to increase your fluid intake advance your diet as tolerated. Prescriptions: Vit,Calc78/Iron/Folic [Pretab 29 mg-1 mg Tablet] 1 each PO QDAY #90 tablet Referrals: PRIMARY CARE, [Primary Care Provider] - 3-5 Days [facility] [Provider Group] - 3-5 Days [facility] [Provider Group] - 3-5 Days [facility] [Provider Group] - 3-5 Days
--- NOTE | 2019-09-28 18:15 | Ultrasound Report ---
ULTRASOUND OBSTETRIC Indication: with pelvic pain Findings: Transabdominal imaging is performed There is a single, living intrauterine . [place]-rump length = 0.42 cm = 5 weeks, 1 day(s). Gestational sac measures 10.2 mm characteristic of a 5 week 5 day gestation heart rate is 100 beats per minute. The ovaries are normal. Small follicular cysts are noted in the right ovary There is no free fluid. Impression: Single, living intrauterine with estimated sonographic age of 5 weeks, 3 day(s). Signer Name: José Nice MD Signed: 09/28/2019 6:10 PM Workstation Name: [id number]
== END 2019-09-28 19:40 | disposition home or self-care (01) ==
LOC: ED 11:51
DX: O24.011 Pre-existing type 1 diabetes mellitus, in pregnancy, first trimester (principal); E10.65 Type 1 diabetes mellitus with hyperglycemia; Z3A.01 Less than 8 weeks gestation of pregnancy; Z32.01 Encounter for pregnancy test, result positive; Z98.890 Other specified postprocedural states; Z79.1 Long term (current) use of non-steroidal anti-inflammatories (NSAID); Z79.2 Long term (current) use of antibiotics; Z79.4 Long term (current) use of insulin; Z79.899 Other long term (current) drug therapy; Z88.8 Allergy status to other drugs, medicaments and biological substances
CPT/HCPCS: 36415; 76801; 80053; 81001; 82962; 84702; 84703; 85025; 96360; 99284; J7030

== ENCOUNTER 2020-03-01 22:53 | Observation (INO) | payer MEDICAID ==
[2020-03-01] MEDS ORDERED: LACTATED RINGERS 500 ML IV ONE (23:27)
[2020-03-01] MEDS ORDERED: LACTATED RINGERS 1,000 ML IV SCH (23:45)
[2020-03-01] MEDS ORDERED: INSULIN REGULAR, HUMAN 100 UNITS/1 ML SUB-Q ONE (23:48)
[2020-03-01] MEDS ORDERED: METOCLOPRAMIDE 10 MG/2 ML INJ IV ONE (23:50)
[2020-03-01] MEDS ORDERED: LACTATED RINGERS 1,000 ML IV ONE (23:50)
[2020-03-01] MEDS ORDERED: BICITRA ORAL LIQD 30ML PO ONE (23:50)
[2020-03-01] MEDS ORDERED: PROMETHAZINE 25 MG RECT SUPP PR ONE (23:50)
[2020-03-02] MEDS ORDERED: PROMETHAZINE 25 MG RECT SUPP PR ONE (04:38)
[2020-03-02] MEDS ORDERED: MORPHINE 4 MG/1 ML INJ IM ONE (04:50)
[2020-03-02] MEDS ORDERED: hydrOXYzine HCL 100 MG/2 ML INJ IM ONE (04:50)
[2020-03-02] MEDS ORDERED: BICITRA ORAL LIQD 30ML ONE (04:50)
[2020-03-02 07:37] VITALS: BP 142/90
[2020-03-02] MEDS ORDERED: ONDANSETRON 8 MG ODT TAB PO PRN (09:00)
[2020-03-02 09:58] LABS: Alanine Aminotransferase 14 units/L (7-56); Albumin 2.7 g/dL (3.9-5); BUN/Creatinine Ratio 17; Blood Urea Nitrogen 5 mg/dL (7-17); Calcium 8.1 mg/dL (8.4-10.2); Hemolysis Index 5
[2020-03-02] MEDS ORDERED: INSULIN GLARGINE 100 UNITS/ML SUB-Q SCH (10:00)
[2020-03-02] MEDS ORDERED: PROCHLORPERAZINE EDISYLATE 10 MG/2 ML VIAL IM SCH (12:00)
== END 2020-03-02 14:00 | disposition home or self-care (01) ==
LOC: TRG 22:53 → APU 22:55 → LD 03-02 02:20 → TRG 03-02 03:04 → LD 03-02 03:05
PROVIDERS: ADMIT Obstetrics & Gynecology; ATTEND Obstetrics & Gynecology
DX: O21.2 Late vomiting of pregnancy (principal); Z20.828 Contact with and (suspected) exposure to other viral communicable diseases; O26.892 Other specified pregnancy related conditions, second trimester; R10.9 Unspecified abdominal pain; Z3A.28 28 weeks gestation of pregnancy; Z98.891 History of uterine scar from previous surgery; Z79.899 Other long term (current) drug therapy
CPT/HCPCS: 36415; 80053; 82728; 82962; 96372; 96374; G0378; J0780; J2270; J2765; J3410; J7120; Q0162; U0003; J1815

== ENCOUNTER 2020-08-03 15:17 | Observation (INO) | payer MEDICAID ==
[2020-08-03] MEDS ORDERED: ONDANSETRON 4 MG/2 ML INJ IV ONE (16:01)
[2020-08-03] MEDS ORDERED: SODIUM CHLORIDE 0.9% 1000 ML 1,000 ML IV ONE ×2 (16:01→17:20)
[2020-08-03] MEDS ORDERED: HALOPERIDOL LACTATE 5 MG/1 ML INJ IM ONE (16:13)
[2020-08-03] MEDS ORDERED: HALOPERIDOL LACTATE 5 MG/1 ML INJ ONE (16:14)
--- NOTE | 2020-08-03 16:14 | Emergency Department Report ---
<REGINA ALEX III Blue - Last Filed: 08/03/20 19:24> ED N/V/D HPI - General Chief complaint: Nausea/Vomiting/Diarrhea Stated complaint: VOMITING - Related Data Home Medications Medication Instructions Recorded Confirmed Last Taken Insulin Detemir [Levemir] 5 unit SQ DAILY 04/10/20 04/10/20 Unknown Levothyroxine [Synthroid] 50 mcg PO QAM 04/10/20 04/10/20 Unknown Previous Rx's Medication Instructions Recorded Last Taken Type Prochlorperazine [Compazine] 10 mg PO Q8HR PRN #30 tablet 03/02/20 Unknown Rx Allergies Allergy/AdvReac Type Severity Reaction Status Date / Time animal dander Allergy Unknown Verified 04/09/20 09:22 ED Past Medical Hx - Medications Home Medications: Home Medications Medication Instructions Recorded Confirmed Last Taken Type Prochlorperazine [Compazine] 10 mg PO Q8HR PRN #30 tablet 03/02/20 04/10/20 Unknown Rx Insulin Detemir [Levemir] 5 unit SQ DAILY 04/10/20 04/10/20 Unknown History Levothyroxine [Synthroid] 50 mcg PO QAM 04/10/20 04/10/20 Unknown History ED Course - Reevaluation(s) Reevaluation #1: I reviewed the findings and management of this patient in real-time and I have personally seen and examined this patient and participated in the decision making for this patient with the midlevel. Patient is a 25-year-old female that presents emergency room with body aches and intractable nausea vomiting. Patient has been given multiple doses of antiemetics to include Zofran and Haldol. Patient is still nauseous and having active vomiting. Patient had labs done which shows a metabolic acidosis with a almost normal blood sugar. Patient's labs showed bicarb 14, open anion gap and a acidosis. Patient's pH is 7.28 patient has received fluids. Patient is still severely tachycardic at 140 on the library monitor and a blood pressure of 158/112. Patient states is a little better but she still feeling pretty bad. Patient still actively vomiting. Patient will be given another dose of Haldol. Patient will be given more fluids. I examined the patient. Patient's heart exam shows tachycardia, normal S1-S2 and no murmurs. Patient's lung sounds are clear to auscultation. Patient's oral cavity is dry. Patient shows dry mucosal membranes. Patient has a nontender abdomen. I discussed all results with patient. I discussed plan of care with patient. Patient agrees with plan of care and admission. Patient to be admitted to the hospitalist service. 08/03/20 19:01 - Consultations Consultation #1: Hospitalist consulted for admission. Hospitalist to admit patient. 08/03/20 19:24 ED Medical Decision Making - Lab Data Result diagrams: 08/03/20 16:06 08/03/20 16:06 Critical Care Time: Yes Critical care time in (mins) excluding proc time.: 35 Critical Care Time: 35 minutes ED Disposition Clinical Impression: Metabolic acidosis, Nausea & vomiting, Cannabinoid hyperemesis syndrome, Diabetes, Intractable nausea and vomiting Disposition: - OP ADMIT IP TO THIS HOSP Is pt being admited?: Yes Does the pt Need Aspirin: No Condition: Critical Time of Disposition: 19:14 <VALERIE DENNEY - Last Filed: 08/04/20 12:52> ED N/V/D HPI - General PUI?: No Source: patient, EMS Mode of arrival: Wheelchair Limitations: No Limitations - History of Present Illness Initial comments: 25-year-old -[place]og[place] female with a history of diabetes, diabetes gastroparesis, encephalopathy, acute kidney injury presents to the emergency room for nausea and vomiting and weakness. Patient denies any abdominal pain chest pain or shortness of breath. Patient does admit to smoking marijuana. Patient reports she was recently seen at another hospital 2 days ago. Patient denies any fever but does admit to nausea and vomiting no abdominal pain. MD complaint: nausea, vomiting Onset/Timin -: days(s) Description of Vomiting: watery, bilious Associated Abdominal Pain: No Context: other (Cannabinoid abuse) Associated Symptoms: diaphoresis, loss of appetite, malaise, nausea/vomiting. denies: fever/chills ED Review of Systems ROS: Stated complaint: VOMITING Other details as noted in HPI Comment: All other systems reviewed and negative ED Past Medical Hx - Past Medical History Previous Medical History?: Yes Hx Hypertension: Yes Hx Congestive Heart Failure: No Hx Diabetes: No (year 8 dx) Hx Deep Vein Thrombosis: No Hx Renal Disease: No Hx Sickle Cell Disease: No Hx Seizures: No Hx Asthma: No Hx COPD: No Hx HIV: No - Surgical History Past Surgical History?: Yes Additional Surgical History: 2017. wisdom teeth - Social History Smoking Status: Current Some Day Smoker ED Physical Exam - General Limitations: No Limitations General appearance: lethargic, in distress, cachectic - Head Head exam: Present: atraumatic - Eye Eye exam: Present: normal appearance - ENT ENT exam: Present: mucous membranes dry, normal external ear exam - Neck Neck exam: Present: normal inspection, full ROM - Respiratory Respiratory exam: Present: normal lung sounds bilaterally. Absent: chest wall tenderness, accessory muscle use - Cardiovascular Cardiovascular Exam: Present: tachycardia - GI/Abdominal GI/Abdominal exam: Present: soft. Absent: distended, tenderness - Extremities Exam Extremities exam: Present: full ROM - Back Exam Back exam: Present: full ROM - Neurological Exam Neurological exam: Present: alert, oriented X3, abnormal gait - Psychiatric Psychiatric exam: Present: anxious - Skin Skin exam: Present: warm, dry, intact, normal color. Absent: rash ED Course Vital Signs 08/03/20 08/03/20 08/03/20 15:51 17:16 18:43 Temperature 98.5 F Pulse Rate 155 H 139 H Respiratory 49 H Rate Blood Pressure Blood Pressure 153/121 [153/121] O2 Sat by Pulse 97 99 Oximetry 08/03/20 08/03/20 08/03/20 19:00 19:30 20:00 Temperature Pulse Rate 139 H 140 H Respiratory Rate Blood Pressure 136/113 164/107 134/89 Blood Pressure [153/121] O2 Sat by Pulse 100 100 100 Oximetry 08/03/20 08/03/20 08/03/20 20:01 20:31 21:01 Temperature 98.7 F Pulse Rate 140 H 138 H 138 H Respiratory 26 H Rate Blood Pressure 152/101 153/88 Blood Pressure 174/126 [153/121] O2 Sat by Pulse 100 100 100 Oximetry 08/03/20 08/03/20 08/03/20 21:31 22:01 22:31 Temperature Pulse Rate 137 H 146 H 151 H Respiratory Rate Blood Pressure 178/122 166/107 146/87 Blood Pressure [153/121] O2 Sat by Pulse 100 100 100 Oximetry 08/03/20 08/03/20 08/03/20 23:01 23:17 23:31 Temperature Pulse Rate 146 H 144 H 144 H Respiratory Rate Blood Pressure 132/73 152/108 146/96 Blood Pressure [153/121] O2 Sat by Pulse 100 100 100 Oximetry 08/04/20 08/04/20 08/04/20 00:01 00:31 00:41 Temperature Pulse Rate 138 H 145 H 146 H Respiratory 25 H 21 Rate Blood Pressure 140/66 140/87 157/88 Blood Pressure [153/121] O2 Sat by Pulse 100 100 100 Oximetry 08/04/20 08/04/20 08/04/20 00:51 01:01 01:07 Temperature Pulse Rate 148 H 147 H 148 H Respiratory 26 H 23 Rate Blood Pressure 133/62 137/111 137/111 Blood Pressure [153/121] O2 Sat by Pulse 100 100 Oximetry 08/04/20 08/04/20 01:11 01:21 Temperature Pulse Rate 124 H 122 H Respiratory 33 H 36 H Rate Blood Pressure 137/111 119/62 Blood Pressure [153/121] O2 Sat by Pulse 100 100 Oximetry ED Medical Decision Making - Lab Data Result diagrams: 08/03/20 16:06 08/04/20 07:10 - Medical Decision Making 25-year-old -[place] female with a history of diabetes, diabetes gastroparesis, encephalopathy, acute kidney injury presents to the emergency room for nausea and vomiting and weakness. Patient denies any abdominal pain chest pain or shortness of breath. Patient does admit to smoking marijuana. Patient reports she was recently seen at another hospital 2 days ago. Patient denies any fever but does admit to nausea and vomiting no abdominal pain. Patient is immediate seen by this provider. Initiation of IV fluids blood work vital signs. Haldol 2.5 mg given for nausea vomiting agitation. Patient was given 2 L of fluid. Patient then needed another dose of Haldol 2.5 mg. Patient still remained tachycardic the lowest I can get was 131. Once nausea and vomiting started back patient heart rate increased up to 161. Dr. Alex ER attending came to evaluate patient and agrees that patient needs to be admitted for metabolic acidosis hyper emesis gravidarum denies any retractable, tachycardic. Critical care attestation.: If time is entered above; I have spent that time in minutes in the direct care of this critically ill patient, excluding procedure time. ED Disposition Is pt being admited?: Yes Does the pt Need Aspirin: Yes
[2020-08-03 16:18] LABS: Basophils # (Auto) 0.1 K/mm3 (0.0-0.1); Basophils % (Auto) 0.6 % (0.0-1.8); Eosinophils # (Auto) 0.1 K/mm3 (0.0-0.4); Eosinophils % (Auto) 0.9 % (0.0-4.3); Hematocrit 45.1 % (30.3-42.9); Hemoglobin 15.5 gm/dl (10.1-14.3); Lymphocytes # (Auto) 1.6 K/mm3 (1.2-5.4); Lymphocytes % (Auto) 15.9 % (13.4-35.0); Mean Corpuscular HGB Conc 34 % (30-34); Mean Corpuscular Volume 81 fl (79-97); Monocytes # (Auto) 0.5 K/mm3 (0.0-0.8); Monocytes % (Auto) 5.1 % (0.0-7.3); Platelet Count 462 K/mm3 (140-440); Red Blood Count 5.57 M/mm3 (3.65-5.03); Red Cell Distribution Width 14.4 % (13.2-15.2)
[2020-08-03] MEDS ORDERED: HALOPERIDOL LACTATE 5 MG/1 ML INJ IV ONE ×2 (16:25→18:38)
[2020-08-03 16:44] LABS: Alanine Aminotransferase 11 units/L (7-56); Albumin 5.2 g/dL (3.9-5); BUN/Creatinine Ratio 23; Blood Urea Nitrogen 21 mg/dL (7-17); Calcium 10.7 mg/dL (8.4-10.2); Hemolysis Index 47
--- NOTE | 2020-08-03 19:27 | History and Physical Report ---
History of Present Illness Chief complaint: I feel sick History of present illness: 25 YO Female with DM complicated by Gastroparesis, HTN, Noncompliance, Cannaboid Hyperemesis, Hypothyroidism, presents to ED for evaluation. Pt states that she has experienced nausea, multiple episodes of vomiting, generalized weakness, as well as diminished oral intake over the past 1 day with persistent symptoms over the same time frame. EMS was notified and upon arrival the patient was found to be in distress and subsequently transported to [facility] for further care and evaluation. Pt seen and evaluated in ED. All lab and imaging studies reviewed. And found to have metabolic acidosis, intractable nausea and vomiting, accele rated hypertension. Patient placed in observation status and admitted to medical floor due to increased risk of worsening symptoms. Patient treated with IV fluid resuscitation therapy, blood pressure control, and antiemetic therapy. Patient denies fever, chills, chest pain, palpitation, productive cough, skin rash, recent ill contacts, or known exposure to COVID-19. Prior admission on 04/09/2020 reviewed. All medication listed at time of admission has been reconciled. Past History Past Medical History: diabetes, hypertension, other (See HPI) Past Surgical History: Social history: single. denies: smoking, alcohol abuse, prescription drug abuse Family history: hypertension Medications and Allergies Allergies Allergy/AdvReac Type Severity Reaction Status Date / Time animal dander Allergy Unknown Verified 04/09/20 09:22 Home Medications Medication Instructions Recorded Confirmed Last Taken Type Prochlorperazine [Compazine] 10 mg PO Q8HR PRN #30 tablet 03/02/20 04/10/20 Unkn own Rx Insulin Detemir [Levemir] 5 unit SQ DAILY 04/10/20 04/10/20 Unknown History Levothyroxine [Synthroid] 50 mcg PO QAM 04/10/20 04/10/20 Unknown History Review of Systems Constitutional: no weight loss, no weight gain, no fever, no chills Ears, nose, mouth and throat: no ear pain, no tinnitis, no nose pain, no nasal congestion, no nasal discharge Cardiovascular: no chest pain, no orthopnea, no rapid/irregular heart beat, no edema, no syncope Respiratory: no cough, no cough with sputum, no hemoptysis Gastrointestinal: nausea, loss of appetite, no coffee ground emesis, no BRBPR, no melena, no hematochezia Genitourinary Female: no pelvic pain, no flank pain, no dysuria, no urinary frequency, no urgency Rectal: no pain, no incontinence, no bleeding Musculoskeletal: no neck stiffness, no neck pain, no shooting arm pain, no arm numbness/tingling, no low back pain, no shooting leg pain Integumentary: no rash, no pruritis, no redness, no sores Neurological: no transient paralysis, no weakness, no parathesias, no numbness, no tingling, no tremors Psychiatric: no anxiety, no change in sleep habits, no insomnia, no hypersomnia Endocrine: no cold intolerance, no polyphagia, no excessive thirst, no nocturia Hematologic/Lymphatic: no easy bruising, no easy bleeding, no lymphedema Allergic/Immunologic: no urticaria, no wheezing, no persistent infections, no anaphylaxis Exam - Constitutional Vitals: Temp Pulse Resp BP Pulse Ox 98.5 F 139 H 49 H 153/121 99 08/03/20 17:16 08/03/20 18:43 08/03/20 18:43 08/03/20 18:43 08/03/20 18:43 General appearance: Present: mild distress - EENT Eyes: Present: PERRL ENT: hearing intact, clear oral mucosa - Neck Neck: Present: supple, normal ROM - Respiratory Respiratory effort: normal Respiratory: bilateral: CTA - Cardiovascular Heart Sounds: Present: S1 & S2. Absent: rub, click - Extremities Extremities: pulses symmetrical, No edema Peripheral Pulses: within normal limits - Abdominal General gastrointestinal: Present: soft, non-tender, non-distended, other (- Hyperactive bowel sounds) Female genitourinary: Present: normal - Integumentary Integumentary: Present: clear, warm, dry - Musculoskeletal Musculoskeletal: gait normal, strength equal bilaterally - Psychiatric Psychiatric: appropriate mood/affect, intact judgment & insight - Neurologic Neurologic: CNII-XII intact, moves all extremities Results - Labs CBC & Chem 7: 08/03/20 16:06 08/03/20 16:06 Labs: Abnormal lab results 08/03/20 08/03/20 08/03/20 Range/Units 16:06 16:06 16:06 RBC 5.57 H (3.65-5.03) M/mm3 Hgb 15.5 H (10.1-14.3) gm/dl Hct 45.1 H (30.3-42.9) % Plt Count 462 H (140-440) K/mm3 Seg Neutrophils % 77.5 H (40.0-70.0) % Seg Neutrophils # 7.8 H (1.8-7.7) K/mm3 VBG pH 7.287 L (7.320-7.420) Carbon Dioxide 14 L (22-30) mmol/L BUN 21 H (7-17) mg/dL Glucose 116 H (65-100) mg/dL Lactic Acid (0.7-2.0) mmol/L Calcium 10.7 H (8.4-10.2) mg/dL Alkaline Phosphatase 137 H (35-129) units/L Total Protein 8.4 H (6.3-8.2) g/dL Albumin 5.2 H (3.9-5) g/dL 08/03/ Range/Units 16:06 RBC (3.65-5.03) M/mm3 Hgb (10.1-14.3) gm/dl Hct (30.3-42.9) % Plt Count (140-440) K/mm3 Seg Neutrophils % (40.0-70.0) % Seg Neutrophils # (1.8-7.7) K/mm3 VBG pH (7.320-7.420) Carbon Dioxide (22-30) mmol/L BUN (7-17) mg/dL Glucose (65-100) mg/dL Lactic Acid 2.10 H* (0.7-2.0) mmol/L Calcium (8.4-10.2) mg/dL Alkaline Phosphatase (35-129) units/L Total Protein (6.3-8.2) g/dL Albumin (3.9-5) g/dL Assessment and Plan - Patient Problems (1) Metabolic acidosis Current Visit: Yes Status: Acute Plan to address problem: IV fluid resuscitation therapy, BMP, repeat BMP in a.m. (2) Intractable nausea and vomiting Current Visit: Yes Status: Acute Plan to address problem: Antiemetic therapy, IV fluid resuscitation therapy, bowel rest, supportive care. (3) Cannabinoid hyperemesis syndrome Current Visit: No Status: Acute Plan to address problem: Supportive care, IV fluid resuscitation therapy, bowel rest. (4) Diabetic gastroparesis Current Visit: No Status: Acute Plan to address problem: Blood glucose control, frequent small meals, IV fluid resuscitation therapy, advance diet as tolerated (5) DVT prophylaxis Current Visit: Yes Status: Acute Plan to address problem: SCD to bilateral lower extremities while in bed, patient is ambulatory.
[2020-08-03] MEDS ORDERED: ONDANSETRON 4 MG/2 ML INJ IV PRN (19:30)
[2020-08-03] MEDS ORDERED: ACETAMINOPHEN 325 MG TAB PO PRN (19:30)
[2020-08-03] MEDS ORDERED: ALBUTEROL 2.5 MG/3 ML NEBU IH PRN (19:30)
[2020-08-03] MEDS ORDERED: PROCHLORPERAZINE EDISYLATE 10 MG/2 ML VIAL IV PRN (19:32)
[2020-08-03] MEDS: SODIUM CHLORIDE 0.9% 1000 ML 1,000 ML IV SCH (20:37)
[2020-08-03] MEDS ORDERED: LORazepam 2 MG/ML VIAL IV ONE (21:11)
[2020-08-03] MEDS ORDERED: dilTIAZem 25 MG/5 ML INJ IV ONE ×2 (22:23)
[2020-08-03] MEDS ORDERED: dilTIAZem 25 MG/5 ML INJ IV PRN (22:25)
[2020-08-03] MEDS ORDERED: SODIUM CHLORIDE 0.9% 500 ML 500 ML IV ONE (23:20)
[2020-08-04] MEDS ORDERED: METOPROLOL TARTRATE 5 MG/5 ML INJ IV ONE (00:54)
[2020-08-04 01:46] LABS: Bacteria,Urine 1+ /HPF (Negative); Bilirubin,Urine NEG (Negative); Blood,Urine NEG (Negative); Color,Urine Straw (Yellow); Mucus,Urine FEW /HPF; Urobilinogen,Urine < 2.0 mg/dL (<2.0)
[2020-08-04 01:52] LABS: Amphetamine Screen,Urine Negative; Benzodiazepines Screen,Urine Negative; Cocaine Screen,Urine Negative; Methadone Screen,Urine Negative; Opiate Screen,Urine Negative
[2020-08-04 02:05] LABS: Cannabinoid Screen,Urine Positive
[2020-08-04] MEDS: LEVOTHYROXINE 50 MCG TAB PO SCH (05:22)
[2020-08-04 07:54] LABS: Alanine Aminotransferase 10 units/L (7-56); Albumin 4.1 g/dL (3.9-5); BUN/Creatinine Ratio 19; Blood Urea Nitrogen 15 mg/dL (7-17); Calcium 9.1 mg/dL (8.4-10.2); Hemolysis Index 50
[2020-08-04] MEDS ORDERED: CALCIUM GLUCONATE 2,000 MG in SODIUM CHLORIDE 0.9% 100 ML IV ONE (08:21)
[2020-08-04] MEDS: INSULIN LISPRO 100 UNIT/ML SUB-Q SCH ×3 (08:51→17:33)
[2020-08-04] MEDS ORDERED: SODIUM BICARB 8.4% 50 MEQ/50 ML SYRINGE IV ONE (09:00)
[2020-08-04] MEDS ORDERED: SODIUM BICARBONATE 2 MEQ/2 ML SYRINGE IV ONE (09:00)
[2020-08-04] MEDS ORDERED: SODIUM CHLORIDE 0.9% 1000 ML 1,000 ML IV ONE (09:16)
[2020-08-04] MEDS: INSULIN GLARGINE 100 UNITS/ML SUB-Q SCH (09:34)
--- NOTE | 2020-08-04 09:37 | Progress Note ---
Assessment and Plan Critical care statement The high probability OF a clinically significant sudden or life-threatening deterioration of the cardiorespiratory system and endocrine system required my full and direct attention, intervention and postoperative management. The aggregate critical care time was 32 minutes. The time is in addition to time spent performing reported procedures but includes the followin: Data review and interpretation 2: Patient assessment and monitoring of vital signs 3: Documentation 4:: Medication orders and management - Patient Problems (1) DKA (diabetic ketoacidoses) Current Visit: No Status: Acute Qualifiers: Diabetes mellitus type: type 1 Diabetes mellitus complication detail: without coma Qualified Code(s): E10.10 - Type 1 diabetes mellitus with ke toacidosis without coma Plan to address problem: Patient is not in DKA IV Unasyn is initiated DKA protocol initiated And Novolin 70/30 20 units twice daily Clear liquids 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 Calcium gluconate given for hyperkalemia Sodium bicarbonate given Patient being transferred to ICU from room 371 (2) Intractable nausea and vomiting Current Visit: Yes Status: Acute Plan to address problem: Secondary to DKA next controlled blood glucose levels (3) Cannabinoid hyperemesis syndrome Current Visit: Yes Status: Acute Plan to address problem: Patient counseled about using marijuana on a regular basis (4) Gastroparesis Current Visit: Yes Status: Acute Plan to address problem: IV Zofran and IV Reglan and promethazine if necessary (5) Metabolic acidosis Current Visit: Yes Status: Acute Plan to address problem: 1 amp of bicarb given IV normal saline Control blood glucose levels IV insulin initiated (6) Hyperkalemia Current Visit: Yes Status: Acute Plan to address problem: Calcium gluconate given (7) DVT prophylaxis Current Visit: Yes Status: Acute Plan to address problem: On heparin and GI prophylaxis Subjective Date of service: 08/04/20 Principal diagnosis: DKA Interval history: 25 YO Female with DM complicated by Gastroparesis, HTN, Noncompliance, Cannaboid Hyperemesis, Hypothyroidism, presents to ED for evaluation. Pt states that she has experienced nausea, multiple episodes of vomiting, generalized weakness, as well as diminished oral intake over the past 1 day with persistent symptoms over the same time frame. EMS was notified and upon arrival the patient was found to be in distress and subsequently transported to [facility] for further care and evaluation. Pt seen and evaluated in ED. All lab and imaging studies reviewed. And found to have metabolic acidosis, intractable nausea and vomiting, accelerated hypertension. Patient placed in observation status and admitted to medical floor due to increased risk of worsening symptoms. Patient treated with IV fluid resuscitation therapy, blood pressure control, and antiemetic therapy. Patient denies fever, chills, chest pain, palpitation, productive cough, skin rash, recent ill contacts, or known exposure to COVID-19. Prior admission on 04/09/2020 reviewed. All medication listed at time of admission has been rec onciled. 08/04/2020 Patient is tachypneic Patient is sedated without RVR 130 By 5 is 5 Potassium is 5.4 Glucose is in the 420s Clinically patient is in DKA Objective - Constitutional Vitals: Vital Signs - 12hr 08/03/20 08/03/20 08/03/20 22:01 22:31 23:01 Pulse Rate 146 H 151 H 146 H Pulse Rate [ Right Brachial] Respiratory Rate Blood Pressure 166/107 146/87 132/73 O2 Sat by Pulse 100 100 100 Oximetry 08/03/20 08/03/20 08/04/20 23:17 23:31 00:01 Pulse Rate 144 H 144 H 138 H Pulse Rate [ Right Brachial] Respiratory Rate Blood Pressure 152/108 146/96 140/66 O2 Sat by Pulse 100 100 100 Oximetry 08/04/20 08/04/20 08/04/20 00:31 00:41 00:51 Pulse Rate 145 H 146 H 148 H Pulse Rate [ Right Brachial] Respiratory 25 H 21 26 H Rate Blood Pressure 140/87 157/88 133/62 O2 Sat by Pulse 100 100 100 Oximetry 08/04/20 08/04/20 08/04/20 01:01 01:07 01:11 Pulse Rate 147 H 148 H 124 H Pulse Rate [ Right Brachial] Respiratory 23 33 H Rate Blood Pressure 137/111 137/111 137/111 O2 Sat by Pulse 100 100 Oximetry 08/04/20 08/04/20 08/04/20 01:21 03:38 05:38 Pulse Rate 122 H Pulse Rate [ 122 H Right Brachial] Respiratory 36 H 18 36 H Rate Blood Pressure 119/62 145/93 O2 Sat by Pulse 100 100 Oximetry General appearance: Present: mild distress, well-nourished - EENT Eyes: PERRL, EOM intact ENT: hearing intact, clear oral mucosa Ears: bilateral: normal - Neck Neck: supple, normal ROM - Respiratory Respiratory effort: normal Respiratory: bilateral: CTA - Breasts Breasts: normal - Cardiovascular Heart rate: 120 Rhythm: regular Heart Sounds: Present: S1 & S2. Absent: gallop, rub Extremities: pulses intact, No edema, normal color, Full ROM - Gastrointestinal General gastrointestinal: Present: soft, non-tender, non-distended, normal bowel sounds Localized gastrointestinal: tender: diffuse - Genitourinary Female genitourinary: normal - Integumentary Integumentary: clear, warm, dry - Musculoskeletal Musculoskeletal: 1, strength equal bilaterally - Neurologic Neurologic: moves all extremities - Psychiatric Psychiatric: appropriate mood/affect, intact judgment & insight, memory intact, cooperative - Allied health notes Allied health notes reviewed: nursing, case management - Labs CBC & Chem 7: 08/03/20 16:06 08/04/20 07:10 Labs: Abnormal lab results 08/03/20 08/03/20 08/03/20 Range/Units 16:06 16:06 16:06 RBC 5.57 H (3.65-5.03) M/mm3 Hgb 15.5 H (10.1-14.3) gm/dl Hct 45.1 H (30.3-42.9) % Plt Count 462 H (140-440) K/mm3 Seg Neutrophils % 77.5 H (40.0-70.0) % Seg Neutrophils # 7.8 H (1.8-7.7) K/mm3 VBG pH 7.287 L (7.320-7.420) Sodium (137-145) mmol/L Potassium (3.6-5.0) mmol/L Carbon Dioxide 14 L (22-30) mmol/L BUN 21 H (7-17) mg/dL Glucose 116 H (65-100) mg/dL Lactic Acid (0.7-2.0) mmol/L Calcium 10.7 H (8.4-10.2) mg/dL Alkaline Phosphatase 137 H (35-129) units/L Total Protein 8.4 H (6.3-8.2) g/dL Albumin 5.2 H (3.9-5) g/dL 08/03/20 08/04/20 Range/Units 16:06 07:10 RBC (3.65-5.03) M/mm3 Hgb (10.1-14.3) gm/dl Hct (30.3-42.9) % Plt Count (140-440) K/mm3 Seg Neutrophils % (40.0-70.0) % Seg Neutrophils # (1.8-7.7) K/mm3 VBG pH (7.320-7.420) Sodium 135 L (137-145) mmol/L Potassium 5.4 H (3.6-5.0) mmol/L Carbon Dioxide 5 L* D (22-30) mmol/L BUN (7-17) mg/dL Glucose 424 H (65-100) mg/dL Lactic Acid 2.10 H* (0.7-2.0) mmol/L Calcium (8.4-10.2) mg/dL Alkaline Phosphatase (35-129) units/L Total Protein (6.3-8.2) g/dL Albumin (3.9-5) g/dL
[2020-08-04] MEDS ORDERED: INSULIN REGULAR, HUMAN 100 UNITS in SODIUM CHLORIDE 0.9% 99 ML IV SCH (10:00)
[2020-08-04] MEDS ORDERED: NON-FORMULARY EACH (Insulin Detemir [Levemir Vial] 100 UNIT/ML Vial) SQ SCH (10:00)
[2020-08-04] MEDS ORDERED: D5W/0.45% NACL/KCL 20 MEQ 20 MEQ/1,000 ML BAG IV SCH (10:00)
[2020-08-04] MEDS ORDERED: METOCLOPRAMIDE 10 MG/2 ML INJ IV PRN (10:02)
[2020-08-04] MEDS ORDERED: ONDANSETRON 4 MG/2 ML INJ IV PRN (10:03)
[2020-08-04] MEDS: SODIUM CHLORIDE 0.9% 1000 ML 1,000 ML IV SCH ×2 (10:31→18:10)
[2020-08-04 15:54] LABS: Blood Urea Nitrogen 11 mg/dL (7-17); Calcium 8.7 mg/dL (8.4-10.2); Hemolysis Index 55
[2020-08-04 15:59] LABS: BUN/Creatinine Ratio 22
--- NOTE | 2020-08-04 16:36 | Consultation ---
History of Present Illness Consult date: 08/04/20 Requesting physician: EUSEBIO WITT Reason for consult: other (DKA) History of present illness: PULMONARY/CCM CONSULT NOTE (Full dictation # [id number]) Please see dictated notes for full details Past History Past Medical History: diabetes, hypertension, other (See HPI) Past Surgical History: Social history: single. denies: smoking, alcohol abuse, prescription drug abuse Family history: hypertension Medications and Allergies Allergies Allergy/AdvReac Type Severity Reaction Status Date / Time animal dander Allergy Unknown Verified 04/09/20 09:22 Home Medications Medication Instructions Recorded Confirmed Last Taken Type Prochlorperazine [Compazine] 10 mg PO Q8HR PRN #30 tablet 03/02/20 04/10/20 Unknown Rx Insulin Detemir [Levemir] 5 unit SQ DAILY 04/10/20 04/10/20 Unknown History Levothyroxine [Synthroid] 50 mcg PO QAM 04/10/20 04/10/20 Unknown History Active Meds: Active Medications Acetaminophen (Acetaminophen 325 Mg Tab) 650 mg PO Q4H PRN PRN Reason: Pain MILD(1-3)/Fever >100.5/[place] Albuterol (Albuterol 2.5 Mg/3 Ml Nebu) 2.5 mg IH Q4HRT PRN PRN Reason: Shortness Of Breath Sodium Chloride (Nacl 0.9% 1000 Ml) 1,000 mls @ 150 mls/hr IV DIRECT SILVANA Last Admin: 08/04/20 10:31 Dose: 150 mls/hr Documented by: Insulin Human Regular 100 (units/ Sodium Chloride) 100 mls @ 2 mls/hr IV TITR SILVANA; Protocol Last Titration: 08/04/20 15:10 Dose: 0.5 units/hr, 0.5 mls/hr Documented by: Potassium Chloride/Dextrose/Sod Cl (D5w/0.45% Nacl/Kcl 20 Meq) 20 meq in 1,000 mls @ 125 mls/hr IV DIRECT SILVANA Insulin Glargine (Insulin Glargine 100 Units/Ml) 5 units SUB-Q QAMDIAB SILVANA Last Admin: 08/04/20 09:34 Dose: 5 units Documented by: Insulin Human Isoph/Insulin Regular (Insulin Nph/Regular 70/30 Inj) 15 unit SUB-Q BIDDIAB SILVANA Insulin Human Lispro (Insulin Lispro 100 Unit/Ml) 0 unit SUB-Q Q6HR [facility]; Protocol Last Admin: 08/04/20 15:11 Dose: Not Given Documented by: Levothyroxine Sodium (Levothyroxine 50 Mcg Tab) 50 mcg PO DAILY@0600 [facility] Last Admin: 08/04/20 05:22 Dose: Not Given Documented by: Metoclopramide HCl (Metoclopramide 10 Mg/2 Ml Inj) 10 mg IV Q6H PRN PRN Reason: Nausea And Vomiting Ondansetron HCl (Ondansetron 4 Mg/2 Ml Inj) 4 mg IV Q3H PRN PRN Reason: Nausea And Vomiting Prochlorperazine Edisylate (Prochlorperazine Edisylate 10 Mg/2 Ml Vial) 5 mg IV Q6H PRN PRN Reason: Nausea And Vomiting Last Admin: 08/03/20 20:37 Dose: 5 mg Documented by: Sodium Chloride (Sodium Chloride 0.9% 10 Ml Flush Syringe) 10 ml IV BID [facility] Last Admin: 08/03/20 22:33 Dose: 10 ml Documented by: Sodium Chloride (Sodium Chloride 0.9% 10 Ml Flush Syringe) 10 ml IV PRN PRN PRN Reason: LINE FLUSH Physical Examination Vital signs: Vital Signs Pulse Pulse Ox 155 H 97 08/03/20 15:51 08/03/20 15:51 Results - Laboratory Findings CBC and BMP: 08/03/20 16:06 08/04/20 15:08 Abnormal lab findings: Abnormal Labs 08/03/20 08/03/20 08/03/20 16:06 16:06 16:06 RBC 5.57 H Hgb 15.5 H Hct 45.1 H Plt Count 462 H Seg Neutrophils % 77.5 H Seg Neutrophils # 7.8 H VBG pH 7.287 L Sodium Potassium Chloride Carbon Dioxide 14 L BUN 21 H Creatinine Glucose 116 H POC Glucose Lactic Acid Calcium 10.7 H Phosphorus Alkaline Phosphatase 137 H Total Protein 8.4 H Albumin 5.2 H 08/03/20 08/04/20 08/04/20 16:06 07:10 07:10 RBC Hgb Hct Plt Count Seg Neutrophils % Seg Neutrophils # VBG pH Sodium 135 L Potassium 5.4 H Chloride Carbon Dioxide 5 L* D BUN Creatinine Glucose 424 H POC Glucose Lactic Acid 2.10 H* Calcium Phosphorus 5.10 H Alkaline Phosphatase Total Protein Albumin 08/04/20 08/04/20 08/04/20 10:08 11:15 13:20 RBC Hgb Hct Plt Count Seg Neutrophils % Seg Neutrophils # VBG pH Sodium Potassium Chloride Carbon Dioxide BUN Creatinine Glucose POC Glucose 349 H 266 H 126 H Lactic Acid Calcium Phosphorus Alkaline Phosphatase Total Protein Albumin 08/04/20 15:08 RBC Hgb Hct Plt Count Seg Neutrophils % Seg Neutrophils # VBG pH Sodium 135 L Potassium Chloride 110.2 H Carbon Dioxide 10 L BUN Creatinine 0.5 L Glucose 106 H POC Glucose Lactic Acid Calcium Phosphorus Alkaline Phosphatase Total Protein Albumin
[2020-08-04] MEDS: INSULIN NPH/REGULAR 70/30 INJ SUB-Q SCH (17:45)
[2020-08-04 20:14] LABS: Blood Urea Nitrogen 10 mg/dL (7-17); Calcium 8.9 mg/dL (8.4-10.2); Hemolysis Index 25
[2020-08-04 20:18] LABS: BUN/Creatinine Ratio 17
[2020-08-04] MEDS ORDERED: FAMOTIDINE 20 MG TAB PO SCH (22:00)
[2020-08-05] MEDS: SODIUM CHLORIDE 0.9% 1000 ML 1,000 ML IV SCH ×2 (00:32→07:36)
[2020-08-05 00:52] LABS: Blood Urea Nitrogen 9 mg/dL (7-17); Calcium 8.4 mg/dL (8.4-10.2); Hemolysis Index 66
--- NOTE | 2020-08-05 00:52 | Consultation ---
DATE OF CONSULTATION: 08/04/2020 PULMONARY CRITICAL CARE CONSULT NOTE CONSULTING PHYSICIAN: Dr. Bocanegra. REASON FOR CONSULTATION: Diabetic ketoacidosis. CHIEF COMPLAINT/HISTORY OF PRESENT ILLNESS: As follows, the patient is a now 25-year-old female with past medical history significant for a diagnosis of diabetes and hypertension with complications to include gastroparesis, came to the Emergency Room complaining of nausea, vomiting, generalized weakness, and diminished oral intake in the past 24 hours. She was found to be indeed in significant distress at home by [facility] and brought to the ER. In the ER, she was found to have a severe metabolic acidosis, high anion gap and accelerated hypertension. She was placed on a DKA protocol. She had denied any sick contacts, any known exposure to COVID-19 and she was admitted to the intensive care unit. When I stopped by to see her, she was resting in bed, very sleepy, but states she was feeling better. No nausea and vomiting. At the time of my evaluation, denies chest pain. Now, with regards to tobacco use or abuse, she denies whatsoever. This really is as much of the history of presentation as I have. PAST MEDICAL HISTORY: Diabetes, hypertension, history of medical noncompliance, history of hypothyroidism. PAST SURGICAL HISTORY: She has had a in the past. MEDICATIONS: She was on at the time I stopped by to see according to the medication administration record included the following: Tylenol 650 mg p.o. q. 4 hours p.r.n. mild pain or fever, albuterol 2.5 mg nebulized q. 4 hours p.r.n. shortness of breath, Lantus 5 units subcutaneously daily to begin after the IV insulin is stopped, insulin via sliding scale also. She was on IV insulin drip going at 4 units per hour, Levoxyl 50 mg p.o. daily, Reglan 10 mg IV q. 6 hours p.r.n. nausea and vomiting, Zofran 4 mg IV q. 3 hours p.r.n. nausea and vomiting, D5 half NS at 125 mL per hour, Compazine 5 mg IV q. 6 hours p.r.n. nausea and vomiting. ALLERGIES: No known drug allergies. DIET: Thin lady, denies acute weight loss or gain. FAMILY AND SOCIAL HISTORY: Lives in the community. Denies alcohol, tobacco or illicit drug use or abuse. FAMILY HISTORY: There is a family history of hypertension. REVIEW OF SYSTEMS: No loss of consciousness. No new onset seizures. No new onset focal weakness. She denies gross hematochezia or melena. Denies gross hematuria or dysuria. No hematemesis. She had polyuria and polydipsia. Denies heat or cold intolerance. Complete 13 system review of systems was obtained as best as I could. Pertinent positives and/or negatives as in body of history above, otherwise noncontributory. PHYSICAL EXAMINATION: VITAL SIGNS: At presentation and since she has been afebrile, presentation, temperature was 98.5 degrees Fahrenheit, pulse was 155, respiratory rate was as high as 49, O2 sats were 97%, inspired oxygen concentration was not recorded at the time, blood pressure was 153/121. Now, she remains afebrile, pulse is still high about 130s and blood pressure is 141/86. GENERAL: She is a young female. Normocephalic, atraumatic, lying in bed with normal respiratory effort at rest. HEAD, EYES, EARS, NOSE AND THROAT: Anicteric, no conjunctival erythema. Oropharynx was dry. NECK: No gross jugular venous distention, no thyromegaly. Grossly, there were no palpable lymph nodes in the supraclavicular or submandibular lymph node chains. LUNGS: Auscultation of both lung steele revealed clear bilateral breath sounds, no wheezing. HEART: Sounds 1 and 2 are heard, regular rate and rhythm, but with tachycardia at the time of my evaluation. No rubs or murmurs. ABDOMEN: Soft, flat, bowel sounds are positive, mildly tender. No palpable hepatosplenomegaly. Bowel sounds are hypoactive. EXTREMITIES: Without overt digital clubbing or cyanosis, no pedal edema. Pedal pulses are 2+ bilaterally. NEUROLOGIC: Pupils are equal, round, about 4 mm, reactive to light. Extraocular muscle movements are intact. She moves all 4 extremities spontaneously. SKIN: Normal turgor without overt cellulitis or rash in the areas I examined. Please see the wound care nurses' notes for the full description of her skin. PSYCHIATRIC: Mood and affect were somewhat depressed. She did have intact judgment and insight. LABORATORY DATA: From my review as follows: Admission white cell count 10,100, hemoglobin 15.5, hematocrit 45.1, platelet count 462. Venous blood gas showed a pH of 7.29. Serum sodium 138, potassium 5.0, chloride 101, bicarbonate 14, BUN 21, creatinine 0.9, glucose was 116. Liver function tests essentially within normal limits. Albumin was elevated at 5.2, now within normal limits. Urinalysis was negative for nitrites and leukocyte esterase. She was spilling glucose. Urine drug screen was positive only for marijuana, she is otherwise presumptive negative. Coronavirus PCR has come back negative. No microbiology studies. No radiographic studies for my review. ASSESSMENT: 1. Diabetic ketoacidosis. 2. Intractable nausea and vomiting. 3. High anion gap metabolic acidosis. 4. Cannabinoid hyperemesis syndrome. 5. Medication noncompliance. 6. History of hypertension. 7. Hemoconcentration at presentation. PLAN: She will be able to be weaned off the DKA protocol, transitioned from IV insulin to long-acting insulin therapy. Electrolytes will be followed and corrected as necessary. We will continue volume resuscitation, hopefully the tachycardia. She will improve. It is an SVT at this time. Better medication compliance has been encouraged. I will go ahead and repeat magnesium level and correct as necessary, especially in light of the tachyarrhythmia. Potassium will also be followed and corrected. Continued tobacco abstinence has been counseled. Flu and pneumonia vaccination will be addressed per protocol. Thank you very much for the consult. We will follow along and make further recommendations as picture progresses/becomes clearer. TID: [id number] RECEIPT: [id number] ANA/CLAIRE
[2020-08-05 00:59] LABS: BUN/Creatinine Ratio 23
[2020-08-05] MEDS: INSULIN LISPRO 100 UNIT/ML SUB-Q SCH ×2 (01:10→05:39)
[2020-08-05] MEDS: LEVOTHYROXINE 50 MCG TAB PO SCH (05:39)
[2020-08-05 06:05] LABS: HCG Qualitative,Urine Negative (Negative)
[2020-08-05] MEDS ORDERED: SODIUM BICARB 8.4% 50 MEQ/50 ML SYRINGE IV ONE (08:00)
[2020-08-05 08:23] LABS: Basophils % (Auto) 0.4 % (0.0-1.8); Eosinophils # (Auto) 0.2 K/mm3 (0.0-0.4); Eosinophils % (Auto) 2.5 % (0.0-4.3); Hematocrit 28.8 % (30.3-42.9); Hemoglobin 10.2 gm/dl (10.1-14.3); Lymphocytes # (Auto) 2.2 K/mm3 (1.2-5.4); Lymphocytes % (Auto) 30.7 % (13.4-35.0); Mean Corpuscular HGB Conc 35 % (30-34); Mean Corpuscular Volume 79 fl (79-97); Monocytes # (Auto) 0.4 K/mm3 (0.0-0.8); Monocytes % (Auto) 5.2 % (0.0-7.3); Platelet Count 308 K/mm3 (140-440); Red Blood Count 3.63 M/mm3 (3.65-5.03); Red Cell Distribution Width 14.1 % (13.2-15.2)
[2020-08-05 08:31] VITALS: BP 132/92
[2020-08-05 08:39] LABS: Blood Urea Nitrogen 6 mg/dL (7-17); Calcium 8.9 mg/dL (8.4-10.2); Hemolysis Index 56
[2020-08-05 08:46] LABS: BUN/Creatinine Ratio 12
[2020-08-05] MEDS: INSULIN NPH/REGULAR 70/30 INJ SUB-Q SCH (09:01)
[2020-08-05] MEDS: INSULIN GLARGINE 100 UNITS/ML SUB-Q SCH (09:01)
[2020-08-05] MEDS ORDERED: MAGNESIUM OXIDE 400 MG TAB PO ONE (10:00)
[2020-08-05] MEDS ORDERED: POTASSIUM CHLORIDE ER 20 MEQ TAB PO ONE (11:00)
--- NOTE | 2020-08-08 14:19 | Electrocardiograph Report ---
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
== END 2020-08-05 10:30 | disposition left against medical advice (07) ==
LOC: ED 15:17 → 3A 19:30 → CC1 08-04 10:17
PROVIDERS: ADMIT Internal Medicine; ATTEND Internal Medicine
DX: E87.2 Acidosis (principal); Z20.822 Contact with and (suspected) exposure to COVID-19; R11.2 Nausea with vomiting, unspecified; E78.2 Mixed hyperlipidemia; I10 Essential (primary) hypertension; K31.84 Gastroparesis; E87.5 Hyperkalemia; F12.120 Cannabis abuse with intoxication, uncomplicated; F17.200 Nicotine dependence, unspecified, uncomplicated; Z98.891 History of uterine scar from previous surgery; Z91.19 Patient's noncompliance with other medical treatment and regimen
CPT/HCPCS: 36415; 80048; 80053; 80307; 81001; 81025; 82140; 82550; 82805; 82962; 83036; 83735; 84100; 84702; 85025; 93005; 96361; 96365; 96366; 96372; 96375; 96376; 99291; G0378; J0610; J0780; J1630; J2060; J2405; J7030; J7040; U0003; J1815

== ENCOUNTER 2020-09-29 19:45 | Inpatient (IN) | payer MEDICAID ==
[2020-09-29] MEDS ORDERED: SODIUM CHLORIDE 0.9% 1000 ML 1,000 ML IV ONE ×2 (19:56→20:20)
--- NOTE | 2020-09-29 20:00 | Event Note ---
ED Screening Note Date of service: 09/29/20 Time: 19:57 ED Screening Note: 25-year-old female patient with history of type 1 diabetes presents to the emergency department with complaints of nausea and vomiting for 24 hours. Patient states she has been compliant with her medications. Further history limited secondary to clinical condition. Tachycardic in triage. General: Awake. Tearful, agitated, moaning. Neck: Supple. Full range of motion intact. Cardiovascular: Tachycardic. Normal peripheral perfusion. Pulmonary: No respiratory distress. Patient is speaking normally without use of accessory muscles. Skin: No apparent rashes or lesions. Neurological: Patient is struggling to follow commands. Musculoskeletal: Moves all four extremities spontaneously with normal range of motion. Fingerstick glucose in triage > 450. Suspect DKA. EKG, IV fluids, and labs/urinalysis ordered. Charge nurse notified. Attending physician notified. I have greeted and performed a focused rapid initial assessment of this patient. A comprehensive ED assessment and evaluation of the patient, analysis of all test results, and completion of the medical decision-making process will be conducted by additional ED providers. This initial assessment/diagnostic orders/clinical plan/treatment(s) is/are subject to change based on patients health status, clinical progression and re-assessment. Further treatment and workup at subsequent clinical provider's discretion. Patient/guardian urged not to elope from the ED as their condition may be serious if not clinically assessed and managed.
[2020-09-29] MEDS ORDERED: ONDANSETRON 4 MG/2 ML INJ IV ONE (20:16)
[2020-09-29] MEDS ORDERED: diphenhydrAMINE 50 MG/ML VIAL IV ONE (20:16)
[2020-09-29] MEDS ORDERED: MORPHINE 4 MG/1 ML INJ IV ONE (20:20)
--- NOTE | 2020-09-29 20:20 | Emergency Department Report ---
ED General Adult HPI - General Chief complaint: Altered Mental Status Stated complaint: VOMITING/STOMACH PAIN Time Seen by Provider: 09/29/20 20:04 Source: patient Mode of arrival: Ambulatory Limitations: No Limitations - History of Present Illness Initial comments: Patient is 25 years old female with history of type 1 diabetes and gastroparesis. Patient presented to the ER complaining of intractable nausea and vomiting since last night. Patient stated that she is unable to keep anything down. Patient denied any fever or chills. No cough or congestion. Patient stated that she is compliant with her medication. - Related Data Home Medications Medication Instructions Recorded Confirmed Last Taken Insulin Detemir [Levemir] 12 unit SQ DAILY 04/10/20 08/05/20 08/03/20 Levothyroxine [Synthroid] 50 mcg PO QAM 04/10/20 08/05/20 08/05/20 06:00 Previous Rx's Medication Instructions Recorded Last Taken Type Prochlorperazine [Compazine] 10 mg PO Q8HR PRN #30 tablet 03/02/20 Unknown Rx Allergies Allergy/AdvReac Type Severity Reaction Status Date / Time animal dander Allergy Unknown Verified 04/09/20 09:22 ED Review of Systems ROS: Stated complaint: VOMITING/STOMACH PAIN Other details as noted in HPI Comment: All other systems reviewed and negative Constitutional: denies: chills, fever Respiratory: denies: cough, orthopnea, shortness of breath, SOB with exertion Cardiovascular: denies: chest pain, palpitations Gastrointestinal: nausea, vomiting. denies: abdominal pain, constipation, hematemesis, melena, hematochezia Musculoskeletal: denies: back pain Neurological: weakness. denies: headache, numbness, paresthesias, confusion, abnormal gait Psychiatric: anxiety ED Past Medical Hx - Past Medical History Previous Medical History?: Yes Hx Hypertension: Yes Hx Congestive Heart Failure: No Hx Diabetes: Yes (year 8 dx) Hx Deep Vein Thrombosis: No Hx Renal Disease: No Hx Sickle Cell Disease: No Hx Seizures: No Hx Asthma: No Hx COPD: No Hx HIV: No Additional medical history: Gastroparesis - Surgical History Past Surgical History?: Yes Additional Surgical History: 2017. wisdom teeth - Social History Smoking Status: Current Every Day Smoker Substance Use Type: Marijuana - Medications Home Medications: Home Medications Medication Instructions Recorded Confirmed Last Taken Type Prochlorperazine [Compazine] 10 mg PO Q8HR PRN #30 tablet 03/02/20 08/05/20 Unknown Rx Insulin Detemir [Levemir] 12 unit SQ DAILY 04/10/20 08/05/20 08/03/20 History Levothyroxine [Synthroid] 50 mcg PO QAM 04/10/20 08/05/20 08/05/20 06:00 History ED Physical Exam - General Limitations: No Limitations General appearance: alert, in distress - Head Head exam: Present: atraumatic, normocephalic, normal inspection - ENT ENT exam: Present: mucous membranes dry - Neck Neck exam: Present: normal inspection, full ROM. Absent: tenderness, meningismus, lymphadenopathy - Respiratory Respiratory exam: Present: normal lung sounds bilaterally - Cardiovascular Cardiovascular Exam: Present: tachycardia - GI/Abdominal GI/Abdominal exam: Present: soft, normal bowel sounds. Absent: distended, tenderness, guarding, rebound, rigid, organomegaly, mass, bruit, pulsatile mass, hernia - Extremities Exam Extremities exam: Present: normal inspection, full ROM, normal capillary refill. Absent: tenderness, pedal edema, joint swelling, calf tenderness - Back Exam Back exam: Present: normal inspection, full ROM. Absent: CVA tenderness (R), CVA tenderness (L) - Neurological Exam Neurological exam: Present: alert, oriented X3, CN II-XII intact - Psychiatric Psychiatric exam: Present: normal mood - Skin Skin exam: Present: warm, dry, intact ED Course Vital Signs 09/29/20 09/29/20 19:54 21:35 Temperature 98.5 F Pulse Rate 148 H 138 H Respiratory 18 18 Rate Blood Pressure 142/90 Blood Pressure 158/108 [Left] O2 Sat by Pulse 99 100 Oximetry ED Medical Decision Making - Lab Data Result diagrams: 09/29/20 20:37 09/29/20 20:37 - EKG Data -: EKG Interpreted by [place] EKG shows normal: sinus rhythm Rate: tachycardia - EKG Data Interpretation: no acute changes - Radiology Data Radiology results: report reviewed - Medical Decision Making Patient is 25 years old female with history of type 1 diabetes and gastroparesis . Patient presented to the ER complaining of intractable nausea and vomiting since last night. Patient stated that she is unable to keep anything down. Patient denied any fever or chills. No cough or congestion. Patient stated that she is compliant with her medication. Patient found to be in DKA with anion gap of 34. Patient received normal saline, Zofran, Benadryl and started on insulin drip. Labs reviewed and CO2 of 7. I discussed the patient with Dr. Simons, he agreed to admit the patient to medical service for further management. Critical Care Time: Yes Critical care time in (mins) excluding proc time.: 30 Critical care attestation.: If time is entered above; I have spent that time in minutes in the direct care of this critically ill patient, excluding procedure time. ED Disposition Clinical Impression: DKA (diabetic ketoacidoses), Intractable nausea and vomiting Disposition: ADMITTED INPATIENT Is pt being admited?: Yes Condition: Stable Instructions: Diabetic Ketoacidosis (ED)
[2020-09-29 21:22] LABS: Hematocrit 40.3 % (30.3-42.9); Hemoglobin 13.5 gm/dl (10.1-14.3); Mean Corpuscular HGB Conc 34 % (30-34); Mean Corpuscular Volume 81 fl (79-97); Platelet Count 661 K/mm3 (140-440); Red Blood Count 4.98 M/mm3 (3.65-5.03); Red Cell Distribution Width 14.7 % (13.2-15.2)
[2020-09-29 21:36] LABS: Alanine Aminotransferase 8 units/L (7-56); Albumin 4.6 g/dL (3.9-5); BUN/Creatinine Ratio 31; Blood Urea Nitrogen 25 mg/dL (7-17); Calcium 10.7 mg/dL (8.4-10.2); Hemolysis Index 51
[2020-09-29 22:17] LABS: RBC Morphology Normal; Total Cells Counted 100
[2020-09-29] MEDS ORDERED: MAGNESIUM HYDROXIDE (MOM) ORAL LIQD UDC PO PRN (22:30)
--- NOTE | 2020-09-29 22:30 | XRay Report ---
CHEST 1 VIEW INDICATION / CLINICAL INFORMATION: DKA. COMPARISON: None available. FINDINGS: SUPPORT DEVICES: None. HEART / MEDIASTINUM: No significant abnormality. LUNGS / PLEURA: No significant pulmonary or pleural abnormality. No pneumothorax. ADDITIONAL FINDINGS: No significant additional findings. IMPRESSION: 1. No acute findings. Signer Name: Satya Correa MD Signed: 09/29/2020 10:26 PM Workstation Name: [id number]
--- NOTE | 2020-09-29 22:40 | History and Physical Report ---
History of Present Illness Date of examination: 09/29/20 Date of admission: 09/29/2020 Chief complaint: Nausea and Vomiting History of present illness: 25-year-old female with significant past medical history of diabetes mellitus and gastroparesis presenting to the emergency room today complaining of nausea and vomiting. Nauseous vomiting is said to have been ongoing in the last 24 hours. She has not been able to keep any meals down. She denies any fever or chills, no chest pain or shortness of breath, no new cough, no headache or dizziness and no diaphoresis. Patient denies any sick contacts and no recent travel. Denies any contact with anyone with COVID-19. Work-up in the emergency room today labs were significant for leukocytosis of 13.3, blood glucose of 458. Urine drug screen was positive for marijuana. Patient being admitted with DKA and mild UTI. Past History Past Medical History: diabetes, hypertension, other (Gastroparesis) Past Surgical History: , Other ([place] tooth removal) Social history: smoking (Current daily smoker), other (Uses Marijuana) Family history: no significant family history Medications and Allergies Allergies Allergy/AdvReac Type Severity Reaction Status Date / Time animal dander Allergy Unknown Verified 04/09/20 09:22 Home Medications Medication Instructions Recorded Confirmed Last Taken Type Prochlorperazine [Compazine] 10 mg PO Q8HR PRN #30 tablet 03/02/20 08/05/20 Unknown Rx Insulin Detemir [Levemir] 12 unit SQ DAILY 04/10/20 08/05/20 08/03/20 History Levothyroxine [Synthroid] 50 mcg PO QAM 04/10/20 08/05/20 08/05/20 06:00 History Active Meds: Active Medications Insulin Human Regular 100 (units/ Sodium Chloride) 100 mls @ 1 mls/hr IV TITR SILVANA; Protocol Review of Systems Constitutional: no fever, no chills Ears, nose, mouth and throat: no nasal congestion, no sore throat Cardiovascular: no chest pain, no palpitations Respiratory: no cough, no shortness of breath Gastrointestinal: nausea, vomiting, no diarrhea Genitourinary Female: no pelvic pain, no flank pain, no dysuria, no hematuria Musculoskeletal: no neck pain, no low back pain Integumentary: no rash, no pruritis Neurological: no headaches, no confusion Psychiatric: no anxiety, no depression Endocrine: no polyphagia, no polydipsia, no polyuria, no nocturia Exam - Constitutional Vitals: Temp Pulse Resp BP Pulse Ox 98.5 F 138 H 18 158/108 100 09/29/20 19:54 09/29/20 21:35 09/29/20 21:35 09/29/20 21:35 09/29/20 21:35 General appearance: Present: no acute distress, well-nourished - EENT Eyes: Present: PERRL, EOM intact. Absent: scleral icterus ENT: hearing intact - Neck Neck: Present: normal ROM - Respiratory Respiratory effort: normal Respiratory: bilateral: CTA - Cardiovascular Rhythm: regular Heart Sounds: Present: S1 & S2. Absent: gallop, systolic murmur, diastolic murmur, rub, click - Extremities Extremities: no ischemia, pulses intact, pulses symmetrical, No edema, normal temperature, normal color, Full ROM Peripheral Pulses: within normal limits - Abdominal General gastrointestinal: Present: soft, non-tender, non-distended, normal bowel sounds. Absent: mass - Integumentary Integumentary: Present: clear, warm, dry. Absent: rash - Musculoskeletal Musculoskeletal: strength equal bilaterally - Psychiatric Psychiatric: appropriate mood/affect, intact judgment & insight, memory intact, cooperative - Neurologic Neurologic: CNII-XII intact, no focal deficits, moves all extremities Results - Labs CBC & Chem 7: 09/29/20 20:37 09/30/20 04:24 Labs: Abnormal lab results 09/29/20 09/29/20 09/29/20 Range/Units 19:50 20:37 20:37 WBC 13.3 H (4.5-11.0) K/mm3 MCH 27 L (28-32) pg Plt Count 661 H (140-440) K/mm3 Seg Neuts % (Manual) 87.0 H (40.0-70.0) % Lymphocytes % (Manual) 9.0 L (13.4-35.0) % Seg Neutrophils # Man 11.6 H (1.8-7.7) K/mm3 VBG pH (7.320-7.420) Sodium 133 L (137-145) mmol/L Potassium 5.1 H (3.6-5.0) mmol/L Chloride 97.6 L (98-107) mmol/L Carbon Dioxide 7 L* (22-30) mmol/L BUN 25 H (7-17) mg/dL Glucose 460 H (65-100) mg/dL POC Glucose 458 H (70-105) mg/dL Calcium 10.7 H (8.4-10.2) mg/dL Total Protein 8.3 H (6.3-8.2) g/dL 09/29/20 Range/Units 20:37 WBC (4.5-11.0) K/mm3 MCH (28-32) pg Plt Count (140-440) K/mm3 Seg Neuts % (Manual) (40.0-70.0) % Lymphocytes % (Manual) (13.4-35.0) % Seg Neutrophils # Man (1.8-7.7) K/mm3 VBG pH 7.310 L (7.320-7.420) Sodium (137-145) mmol/L Potassium (3.6-5.0) mmol/L Chloride (98-107) mmol/L Carbon Dioxide (22-30) mmol/L BUN (7-17) mg/dL Glucose (65-100) mg/dL POC Glucose (70-105) mg/dL Calcium (8.4-10.2) mg/dL Total Protein (6.3-8.2) g/dL Assessment and Plan - Patient Problems (1) DKA (diabetic ketoacidoses) Current Visit: Yes Status: Acute Qualifiers: Plan to address problem: Patient commenced on IV fluid and insulin drip. We will monitor Accu-Cheks closely. (2) Intractable nausea and vomiting Current Visit: Yes Status: Acute Plan to address problem: Possibly secondary to the DKA. We will continue on IV fluid and also placed on antiemetic. (3) UTI (urinary tract infection) Current Visit: Yes Status: Acute Plan to address problem: Patient placed on empiric IV antibiotics. Await urine culture results. (4) DVT prophylaxis Current Visit: No Status: Acute Plan to address problem: Patient placed on subcutaneous heparin. (5) Full code status Current Visit: Yes Status: Acute
[2020-09-29] MEDS ORDERED: HALOPERIDOL LACTATE 5 MG/1 ML INJ IM ONE (22:43)
[2020-09-29] MEDS ORDERED: INSULIN REGULAR, HUMAN 100 UNITS in SODIUM CHLORIDE 0.9% 99 ML IV SCH ×2 (23:00)
[2020-09-29] MEDS ORDERED: D5W/0.45% NACL/KCL 20 MEQ 20 MEQ/1,000 ML BAG IV SCH (23:00)
[2020-09-29 23:44] LABS: Amphetamine Screen,Urine PRESUMPTIVE NEGATIVE; Benzodiazepines Screen,Urine PRESUMPTIVE NEGATIVE; Cannabinoid Screen,Urine PRESUMPTIVE POSITIVE; Cocaine Screen,Urine PRESUMPTIVE NEGATIVE; Methadone Screen,Urine PRESUMPTIVE NEGATIVE; Opiate Screen,Urine PRESUMPTIVE NEGATIVE
[2020-09-29 23:45] LABS: Bacteria,Urine 1+ /HPF (Negative); Bilirubin,Urine NEG (Negative); Blood,Urine NEG (Negative); Color,Urine Yellow (Yellow); Hyaline Casts,Urine 44 /LPF; Mucus,Urine FEW /HPF; Urobilinogen,Urine < 2.0 mg/dL (<2.0)
[2020-09-29 23:50] LABS: Protein,Urine >500 mg/dL (Negative)
[2020-09-30 00:31] LABS: Blood Urea Nitrogen 20 mg/dL (7-17); Calcium 8.9 mg/dL (8.4-10.2); Hemolysis Index 19
[2020-09-30 01:50] LABS: BUN/Creatinine Ratio 29
[2020-09-30 05:18] LABS: Blood Urea Nitrogen 21 mg/dL (7-17); Calcium 10.3 mg/dL (8.4-10.2); Hemolysis Index 177
[2020-09-30 05:23] LABS: BUN/Creatinine Ratio 30
[2020-09-30] MEDS: MORPHINE 2 MG/1 ML INJ IV PRN ×2 (05:52→10:00)
[2020-09-30 08:54] LABS: BUN/Creatinine Ratio 40; Blood Urea Nitrogen 20 mg/dL (7-17); Calcium 9.8 mg/dL (8.4-10.2); Hemolysis Index 14
[2020-09-30] MEDS: cefTRIAXone/NS 1 GM/50 ML 1 GM/50 ML BAG IV SCH (10:00)
[2020-09-30] MEDS: ONDANSETRON 4 MG/2 ML INJ IV PRN ×2 (10:00→21:47)
--- NOTE | 2020-09-30 14:10 | Consultation ---
History of Present Illness Consult date: 09/30/20 Requesting physician: RICK PRYOR Reason for consult: other (DKA) History of present illness: PULMONARY/CCM CONSULT NOTE (Full dictation # ) Please see dictated notes for full details Past History Past Medical History: diabetes, hypertension, other (Gastroparesis) Past Surgical History: , Other ([place] tooth removal) Social history: smoking (Current daily smoker), other (Uses Marijuana) Family history: no significant family history Medications and Allergies Allergies Allergy/AdvReac Type Severity Reaction Status Date / Time animal dander Allergy Unknown Verified 04/09/20 09:22 Home Medications Medication Instructions Recorded Confirmed Last Taken Type Prochlorperazine [Compazine] 10 mg PO Q8HR PRN #30 tablet 03/02/20 08/05/20 Unknown Rx Insulin Detemir [Levemir] 12 unit SQ DAILY 04/10/20 08/05/20 08/03/20 History Levothyroxine [Synthroid] 50 mcg PO QAM 04/10/20 08/05/20 08/05/20 06:00 History Active Meds: Active Medications Acetaminophen (Acetaminophen 325 Mg Tab) 650 mg PO Q6H PRN PRN Reason: Pain MILD(1-3)/Fever >100.5/[place] Dextrose (Dextrose 50% In Water (25gm) 50 Ml Syringe) 0 ml IV Q30MIN PRN; Protocol PRN Reason: Hypoglycemia Heparin Sodium (Porcine) (Heparin 5,000 Unit/1 Ml Vial) 5,000 unit SUB-Q Q8HR SILVANA Sodium Chloride (Nacl 0.9% 1000 Ml) 1,000 mls @ 150 mls/hr IV DIRECT SILVANA Ceftriaxone Sodium (Rocephin/Ns 1 Gm/50 Ml) 1 gm in 50 mls @ 100 mls/hr IV Q24H SILVANA; Protocol Last Admin: 09/30/20 10:00 Dose: 100 mls/hr Documented by: Insulin Human NPH (Insulin Nph, Human 100 Unit/1 Ml) 15 unit SUB-Q BIDDIAB SILVANA Insulin Human Regular (Insulin Regular, Human 100 Units/1 Ml) 0 units SUB-Q ACHS SILVANA; Protocol Magnesium Hydroxide (Magnesium Hydroxide (Mom) Oral Liqd Udc) 30 ml PO Q4H PRN PRN Reason: Constipation Metoclopramide HCl (Metoclopramide 10 Mg/2 Ml Inj) 10 mg IV ACHS SILVANA Morphine Sulfate (Morphine 2 Mg/1 Ml Inj) 2 mg IV Q4H PRN PRN Reason: Pain, Moderate (4-6) Last Admin: 09/30/20 10:00 Dose: 2 mg Documented by: Morphine Sulfate (Morphine 4 Mg/1 Ml Inj) 4 mg IV Q4H PRN PRN Reason: Pain , Severe (7-10) Ondansetron HCl (Ondansetron 4 Mg/2 Ml Inj) 4 mg IV Q8H PRN PRN Reason: Nausea And Vomiting Last Admin: 09/30/20 10:00 Dose: 4 mg Documented by: Pantoprazole Sodium (Pantoprazole 40 Mg Inj) 40 mg IV QDAY SILVANA Sodium Chloride (Sodium Chloride 0.9% 10 Ml Flush Syringe) 10 ml IV BID SILVAAN Sodium Chloride (Sodium Chloride 0.9% 10 Ml Flush Syringe) 10 ml IV PRN PRN PRN Reason: LINE FLUSH Physical Examination Vital signs: Vital Signs Temp Pulse Resp BP Pulse Ox 98.5 F 148 H 18 142/90 99 09/29/20 19:54 09/29/20 19:54 09/29/20 19:54 09/29/20 19:54 09/29/20 19:54 Results - Laboratory Findings CBC and BMP: 09/29/20 20:37 09/30/20 07:53 Abnormal lab findings: Abnormal Labs 09/29/20 09/29/20 09/29/20 19:50 20:37 20:37 WBC 13.3 H MCH 27 L Plt Count 661 H Seg Neuts % (Manual) 87.0 H Lymphocytes % (Manual) 9.0 L Seg Neutrophils # Man 11.6 H VBG pH Sodium 133 L Potassium 5.1 H Chloride 97.6 L Carbon Dioxide 7 L* BUN 25 H Creatinine Glucose 460 H POC Glucose 458 H Calcium 10.7 H Phosphorus Total Protein 8.3 H Urine WBC (Auto) 09/29/20 09/29/20 09/29/20 20:37 23:11 23:14 WBC MCH Plt Count Seg Neuts % (Manual) Lymphocytes % (Manual) Seg Neutrophils # Man VBG pH 7.310 L Sodium Potassium Chloride Carbon Dioxide BUN Creatinine Glucose POC Glucose 336 H Calcium Phosphorus 4.60 H Total Protein Urine WBC (Auto) 08/09/29/20 09/30/20 23:14 23:17 00:23 WBC MCH Plt Count Seg Neuts % (Manual) Lymphocytes % (Manual) Seg Neutrophils # Man VBG pH Sodium Potassium Chloride Carbon Dioxide 8 L* BUN 20 H Creatinine Glucose 333 H POC Glucose 244 H Calcium Phosphorus Total Protein Urine WBC (Auto) 17.0 H 09/30/20 09/30/20 09/30/20 01:49 04:24 04:37 WBC MCH Plt Count Seg Neuts % (Manual) Lymphocytes % (Manual) Seg Neutrophils # Man VBG pH Sodium Potassium Chloride 109.2 H Carbon Dioxide 15 L D BUN 21 H Creatinine Glucose 126 H POC Glucose 143 H 127 H Calcium 10.3 H D Phosphorus Total Protein Urine WBC (Auto) 09/30/20 09/30/20 09/30/20 05:42 06:58 07:53 WBC MCH Plt Count Seg Neuts % (Manual) Lymphocytes % (Manual) Seg Neutrophils # Man VBG pH Sodium Potassium Chloride 112.0 H Carbon Dioxide 13 L BUN 20 H Creatinine 0.5 L Glucose 184 H POC Glucose 175 H 193 H Calcium Phosphorus Total Protein Urine WBC (Auto) 09/30/20 09/30/20 09/30/20 08:28 09:43 10:58 WBC MCH Plt Count Seg Neuts % (Manual) Lymphocytes % (Manual) Seg Neutrophils # Man VBG pH Sodium Potassium Chloride Carbon Dioxide BUN Creatinine Glucose POC Glucose 150 H 134 H 113 H Calcium Phosphorus Total Protein Urine WBC (Auto) 09/30/20 12:08 WBC MCH Plt Count Seg Neuts % (Manual) Lymphocytes % (Manual) Seg Neutrophils # Man VBG pH Sodium Potassium Chloride Carbon Dioxide BUN Creatinine Glucose POC Glucose 110 H Calcium Phosphorus Total Protein Urine WBC (Auto)
--- NOTE | 2020-09-30 14:52 | Progress Note ---
Assessment and Plan -- DKA (diabetic ketoacidoses) Patient admitted with DKA protocol: Insulin drip, blood glucose monitoring every hour, frequent BMP Anion gap now closed, will DC insulin And continue on long-acting and SSI -- Intractable nausea and vomiting Possibly secondary to the DKA. We will continue on IV fluid and also placed on antiemetic. Advance patient on clear liquid diet -- UTI (urinary tract infection) Patient placed on empiric IV antibiotics. Await urine culture results. --Substance abuse, UDS positive for marijuana Counseled for cessation -- DVT prophylaxis Patient placed on subcutaneous heparin. -- Full code status Daily clinical course: 09/30/20: Anion gap resolved, DC heparin drip, placed on subcu insulin, initiate clear liquid diet as patient having persistent nausea and vomiting. We will add Reglan and PPI IV, continue to follow clinically, transfer to telemetry. Patient tested negative for COVID-19 2 days ago, she did not receive COVID-19 vaccine. Subjective Date of service: 09/30/20 Interval history: Patient seen and examined. Medical records and medication list reviewed. No acute event overnight noted by the RN. Patient complains of severe nausea and continues vomiting. Discussed plan of care at bedside with patient. Objective - Exam Narrative Exam: GENERAL: well-developed young female sitting on her bed and throwing up HEENT: Normocephalic. Atraumatic. No conjunctival congestion or icterus. Patient has moist mucous membranes. NECK: Supple. Trachea midline. CHEST/LUNGS: Clear to auscultated bilaterally, breathing nonlabored. No wheezes crackles or rhonchi. HEART/CARDIOVASCULAR: Regular in rate and rhythm. S1 and S2 positive. ABDOMEN: Abdomen is soft, Patient has normal bowel sounds. SKIN: There is no rash. Warm and dry. NEURO: No focal motor deficit. Follows command. MUSCULOSKELETAL: No joint effusion or tenderness. EXTRIMITY: No edema, no cyanosis or clubbing. PSYCH: Cooperative but looks distressed. - Constitutional Vitals: Vital Signs - 12hr 09/30/20 09/30/20 09/30/20 03:00 03:30 04:00 Pulse Rate 132 H 146 H 147 H Respiratory 19 13 15 Rate Blood Pressure 109/78 123/84 157/109 O2 Sat by Pulse 99 100 100 Oximetry 09/30/20 09/30/20 09/30/20 04:30 05:00 05:30 Pulse Rate 143 H 144 H 141 H Respiratory 14 15 16 Rate Blood Pressure 157/109 149/105 159/106 O2 Sat by Pulse 100 100 99 Oximetry 09/30/20 09/30/20 09/30/20 06:00 06:30 07:00 Pulse Rate 141 H 141 H 138 H Respiratory 16 20 16 Rate Blood Pressure 151/104 151/104 178/124 O2 Sat by Pulse 99 100 100 Oximetry 09/30/20 09/30/20 09/30/20 07:30 07:34 08:00 Pulse Rate 140 H 139 H Respiratory 18 16 Rate Blood Pressure 147/114 174/130 O2 Sat by Pulse 100 98 99 Oximetry 09/30/20 09/30/20 08:30 09:00 Pulse Rate 137 H 141 H Respiratory 20 17 Rate Blood Pressure 180/127 168/109 O2 Sat by Pulse 100 100 Oximetry - Labs CBC & Chem 7: 09/29/20 20:37 10/02/20 13:50 Labs: Abnormal lab results 09/29/20 09/29/20 09/29/20 Range/Units 19:50 20:37 20:37 WBC 13.3 H (4.5-11.0) K/mm3 MCH 27 L (28-32) pg Plt Count 661 H (140-440) K/mm3 Seg Neuts % (Manual) 87.0 H (40.0-70.0) % Lymphocytes % (Manual) 9.0 L (13.4-35.0) % Seg Neutrophils # Man 11.6 H (1.8-7.7) K/mm3 VBG pH (7.320-7.420) Sodium 133 L (137-145) mmol/L Potassium 5.1 H (3.6-5.0) mmol/L Chloride 97.6 L (98-107) mmol/L Carbon Dioxide 7 L* (22-30) mmol/L BUN 25 H (7-17) mg/dL Creatinine (0.6-1.2) mg/dL Glucose 460 H (65-100) mg/dL POC Glucose 458 H (70-105) mg/dL Calcium 10.7 H (8.4-10.2) mg/dL Phosphorus (2.5-4.5) mg/dL Total Protein 8.3 H (6.3-8.2) g/dL Urine WBC (Auto) (0.0-6.0) /HPF 09/29/20 09/29/20 09/29/20 Range/Units 20:37 23:11 23:14 WBC (4.5-11.0) K/mm3 MCH (28-32) pg Plt Count (140-440) K/mm3 Seg Neuts % (Manual) (40.0-70.0) % Lymphocytes % (Manual) (13.4-35.0) % Seg Neutrophils # Man (1.8-7.7) K/mm3 VBG pH 7.310 L (7.320-7.420) Sodium (137-145) mmol/L Potassium (3.6-5.0) mmol/L Chloride (98-107) mmol/L Carbon Dioxide (22-30) mmol/L BUN (7-17) mg/dL Creatinine (0.6-1.2) mg/dL Glucose (65-100) mg/dL POC Glucose 336 H (70-105) mg/dL Calcium (8.4-10.2) mg/dL Phosphorus 4.60 H (2.5-4.5) mg/dL Total Protein (6.3-8.2) g/dL Urine WBC (Auto) (0.0-6.0) /HPF 09/29/20 09/29/20 09/30/20 Range/Units 23:14 23:17 00:23 WBC (4.5-11.0) K/mm3 MCH (28-32) pg Plt Count (140-440) K/mm3 Seg Neuts % (Manual) (40.0-70.0) % Lymphocytes % (Manual) (13.4-35.0) % Seg Neutrophils # Man (1.8-7.7) K/mm3 VBG pH (7.320-7.420) Sodium (137-145) mmol/L Potassium (3.6-5.0) mmol/L Chloride (98-107) mmol/L Carbon Dioxide 8 L* (22-30) mmol/L BUN 20 H (7-17) mg/dL Creatinine (0.6-1.2) mg/dL Glucose 333 H (65-100) mg/dL POC Glucose 244 H (70-105) mg/dL Calcium (8.4-10.2) mg/dL Phosphorus (2.5-4.5) mg/dL Total Protein (6.3-8.2) g/dL Urine WBC (Auto) 17.0 H (0.0-6.0) /HPF 09/30/20 09/30/20 09/30/20 Range/Units 01:49 04:24 04:37 WBC (4.5-11.0) K/mm3 MCH (28-32) pg Plt Count (140-440) K/mm3 Seg Neuts % (Manual) (40.0-70.0) % Lymphocytes % (Manual) (13.4-35.0) % Seg Neutrophils # Man (1.8-7.7) K/mm3 VBG pH (7.320-7.420) Sodium (137-145) mmol/L Potassium (3.6-5.0) mmol/L Chloride 109.2 H (98-107) mmol/L Carbon Dioxide 15 L D (22-30) mmol/L BUN 21 H (7-17) mg/dL Creatinine (0.6-1.2) mg/dL Glucose 126 H (65-100) mg/dL POC Glucose 143 H 127 H (70-105) mg/dL Calcium 10.3 H D (8.4-10.2) mg/dL Phosphorus (2.5-4.5) mg/dL Total Protein (6.3-8.2) g/dL Urine WBC (Auto) (0.0-6.0) /HPF 09/30/20 09/30/20 09/30/20 Range/Units 05:42 06:58 07:53 WBC (4.5-11.0) K/mm3 MCH (28-32) pg Plt Count (140-440) K/mm3 Seg Neuts % (Manual) (40.0-70.0) % Lymphocytes % (Manual) (13.4-35.0) % Seg Neutrophils # Man (1.8-7.7) K/mm3 VBG pH (7.320-7.420) Sodium (137-145) mmol/L Potassium (3.6-5.0) mmol/L Chloride 112.0 H (98-107) mmol/L Carbon Dioxide 13 L (22-30) mmol/L BUN 20 H (7-17) mg/dL Creatinine 0.5 L (0.6-1.2) mg/dL Glucose 184 H (65-100) mg/dL POC Glucose 175 H 193 H (70-105) mg/dL Calcium (8.4-10.2) mg/dL Phosphorus (2.5-4.5) mg/dL Total Protein (6.3-8.2) g/dL Urine WBC (Auto) (0.0-6.0) /HPF 09/30/20 09/30/20 09/30/20 Range/Units 08:28 09:43 10:58 WBC (4.5-11.0) K/mm3 MCH (28-32) pg Plt Count (140-440) K/mm3 Seg Neuts % (Manual) (40.0-70.0) % Lymphocytes % (Manual) (13.4-35.0) % Seg Neutrophils # Man (1.8-7.7) K/mm3 VBG pH (7.320-7.420) Sodium (137-145) mmol/L Potassium (3.6-5.0) mmol/L Chloride (98-107) mmol/L Carbon Dioxide (22-30) mmol/L BUN (7-17) mg/dL Creatinine (0.6-1.2) mg/dL Glucose (65-100) mg/dL POC Glucose 150 H 134 H 113 H (70-105) mg/dL Calcium (8.4-10.2) mg/dL Phosphorus (2.5-4.5) mg/dL Total Protein (6.3-8.2) g/dL Urine WBC (Auto) (0.0-6.0) /HPF 09/30/20 Range/Units 12:08 WBC (4.5-11.0) K/mm3 MCH (28-32) pg Plt Count (140-440) K/mm3 Seg Neuts % (Manual) (40.0-70.0) % Lymphocytes % (Manual) (13.4-35.0) % Seg Neutrophils # Man (1.8-7.7) K/mm3 VBG pH (7.320-7.420) Sodium (137-145) mmol/L Potassium (3.6-5.0) mmol/L Chloride (98-107) mmol/L Carbon Dioxide (22-30) mmol/L BUN (7-17) mg/dL Creatinine (0.6-1.2) mg/dL Glucose (65-100) mg/dL POC Glucose 110 H (70-105) mg/dL Calcium (8.4-10.2) mg/dL Phosphorus (2.5-4.5) mg/dL Total Protein (6.3-8.2) g/dL Urine WBC (Auto) (0.0-6.0) /HPF
[2020-09-30] MEDS: INSULIN NPH, HUMAN 100 UNIT/1 ML SUB-Q SCH ×2 (15:41→18:40)
[2020-09-30] MEDS: HEPARIN 5,000 UNIT/1 ML VIAL SUB-Q SCH ×2 (15:42→21:58)
[2020-09-30] MEDS: PANTOPRAZOLE 40 MG INJ IV SCH (15:42)
[2020-09-30] MEDS: MORPHINE 4 MG/1 ML INJ IV PRN ×2 (16:00→21:47)
[2020-09-30] MEDS: SODIUM CHLORIDE 0.9% 1000 ML 1,000 ML IV SCH (16:07)
[2020-09-30] MEDS: METOCLOPRAMIDE 10 MG/2 ML INJ IV SCH ×2 (16:08→22:01)
--- NOTE | 2020-09-30 17:22 | Electrocardiograph Report ---
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
[2020-09-30 17:24] LABS: Blood Urea Nitrogen 19 mg/dL (7-17); Calcium 9.2 mg/dL (8.4-10.2); Hemolysis Index 301
[2020-09-30 17:56] LABS: BUN/Creatinine Ratio 38
[2020-09-30] MEDS: INSULIN REGULAR, HUMAN 100 UNITS/1 ML SUB-Q SCH ×2 (18:39→21:57)
--- NOTE | 2020-09-30 19:12 | Event Note ---
Date: 09/30/20 ICU admission requested for IV insulin therapy re: DKA DKA has resolved and patient transferred to floor Please re-consult as needed
[2020-10-01 00:54] LABS: Blood Urea Nitrogen 15 mg/dL (7-17); Calcium 9.5 mg/dL (8.4-10.2); Hemolysis Index 58
[2020-10-01 01:05] LABS: BUN/Creatinine Ratio 21
[2020-10-01] MEDS ORDERED: SODIUM POLYSTYRENE 15 GM/60 ML ORAL LIQD PO ONE (02:14)
[2020-10-01] MEDS: MORPHINE 2 MG/1 ML INJ IV PRN ×6 (02:31→20:31)
[2020-10-01] MEDS: SODIUM CHLORIDE 0.9% 1000 ML 1,000 ML IV SCH ×2 (02:34→20:38)
[2020-10-01] MEDS: ONDANSETRON 4 MG/2 ML INJ IV PRN (03:10)
[2020-10-01] MEDS: HEPARIN 5,000 UNIT/1 ML VIAL SUB-Q SCH ×2 (05:34→13:40)
[2020-10-01] MEDS: METOCLOPRAMIDE 10 MG/2 ML INJ IV SCH ×5 (08:14→20:36)
[2020-10-01] MEDS: INSULIN NPH, HUMAN 100 UNIT/1 ML SUB-Q SCH ×2 (09:56→18:01)
[2020-10-01] MEDS: PANTOPRAZOLE 40 MG INJ IV SCH (09:56)
[2020-10-01] MEDS: INSULIN REGULAR, HUMAN 100 UNITS/1 ML SUB-Q SCH ×3 (09:57→18:00)
[2020-10-01 10:00] LABS: Alanine Aminotransferase 9 units/L (7-56); Blood Urea Nitrogen 13 mg/dL (7-17); Calcium 10.1 mg/dL (8.4-10.2); Hemolysis Index 26
[2020-10-01 10:03] LABS: BUN/Creatinine Ratio 22
[2020-10-01] MEDS: cefTRIAXone/NS 1 GM/50 ML 1 GM/50 ML BAG IV SCH (13:23)
[2020-10-01] MEDS: LORazepam 1 MG TAB PO SCH ×2 (13:33→20:36)
--- NOTE | 2020-10-01 15:06 | Progress Note ---
Assessment and Plan -- DKA (diabetic ketoacidoses) Patient admitted with DKA protocol: Insulin drip, blood glucose monitoring every hour, frequent BMP Anion gap now closed, will DC insulin And continue on long-acting and SSI -- Intractable nausea and vomiting Possibly secondary to the DKA. We will continue on IV fluid and also placed on antiemetic. Advance patient on clear liquid diet -- UTI (urinary tract infection) Patient placed on empiric IV antibiotics. Await urine culture results. --Hyperkalemia, resolved --Hyponatremia, likely due to hyperglycemia, resolved --Hypokalemia, replete, likely due to GI losses with vomiting --Sinus tachycardia, likely due to stress --Metabolic acidosis, likely due to vomiting, continue IV fluid --Substance abuse, UDS positive for marijuana Counseled for cessation -- DVT prophylaxis Patient placed on subcutaneous heparin. -- Full code status Daily clinical course: 09/30/20: Anion gap resolved, DC heparin drip, placed on subcu insulin, initiate clear liquid diet as patient having persistent nausea and vomiting. We will add Reglan and PPI IV, continue to follow clinically, transfer to telemetry. Patient tested negative for COVID-19 2 days ago, she did not receive COVID-19 vaccine. 10/01/20: cont to c/o severe n/v. change meds to iv, consult GI, change PPI to BID. Follow clinically, replace electrolytes Subjective Date of service: 10/01/20 Interval history: Patient seen and examined. Medical records and medication list reviewed. No acute event overnight noted by the RN. Patient continued to complain of severe nausea and continues vomiting. Discussed plan of care at bedside with patient. Objective - Exam Narrative Exam: GENERAL: well-developed young female lying on bed, appears very tired and ill looking HEENT: Normocephalic. Atraumatic. No conjunctival congestion or icterus. Patient has moist mucous membranes. NECK: Supple. Trachea midline. CHEST/LUNGS: Clear to auscultated bilaterally, breathing nonlabored. No wheezes crackles or rhonchi. HEART/CARDIOVASCULAR: Regular in rate and rhythm. S1 and S2 positive. ABDOMEN: Abdomen is soft, Patient has normal bowel sounds. SKIN: There is no rash. Warm and dry. NEURO: No focal motor deficit. Follows command. MUSCULOSKELETAL: No joint effusion or tenderness. EXTRIMITY: No edema, no cyanosis or clubbing. PSYCH: Cooperative - Constitutional Vitals: Vital Signs - 12hr 10/01/20 10/01/20 10/01/20 03:54 04:25 04:56 Temperature 98.6 F Pulse Rate 78 Respiratory Rate Blood Pressure 143/68 143/68 Blood Pressure 121/63 [Left] O2 Sat by Pulse Oximetry 10/01/20 10/01/20 10/01/20 05:01 05:12 05:20 Temperature Pulse Rate Respiratory Rate Blood Pressure 143/68 143/68 143/68 Blood Pressure [Left] O2 Sat by Pulse Oximetry 10/01/20 10/01/20 10/01/20 06:17 06:27 07:36 Temperature Pulse Rate Respiratory Rate Blood Pressure 143/68 143/68 143/68 Blood Pressure [Left] O2 Sat by Pulse Oximetry 10/01/20 10/01/20 10/01/20 07:51 08:08 08:41 Temperature 97.8 F Pulse Rate 146 H Respiratory 18 Rate Blood Pressure 143/68 175/122 143/68 Blood Pressure [Left] O2 Sat by Pulse 99 Oximetry 10/01/20 10/01/20 10/01/20 09:33 10:00 10:37 Temperature Pulse Rate Respiratory 18 Rate Blood Pressure 143/68 Blood Pressure [Left] O2 Sat by Pulse 97 Oximetry 10/01/20 10/01/20 10/01/20 11:06 11:25 11:56 Temperature 98.3 F Pulse Rate 154 H Respiratory 18 Rate Blood Pressure 143/68 143/68 175/119 Blood Pressure [Left] O2 Sat by Pulse 100 Oximetry - Labs CBC & Chem 7: 09/29/20 20:37 10/02/20 13:50 Labs: Abnormal lab results 09/30/20 09/30/20 09/30/20 Range/Units 16:33 16:35 21:36 Sodium 135 L (137-145) mmol/L Potassium 5.6 H D (3.6-5.0) mmol/L Chloride 107.2 H (98-107) mmol/L Carbon Dioxide 7 L* (22-30) mmol/L BUN 19 H (7-17) mg/dL Creatinine 0.5 L (0.6-1.2) mg/dL Glucose 328 H (65-100) mg/dL POC Glucose 314 H 454 H (70-105) mg/dL 10/01/20 10/01/20 10/01/20 Range/Units 00:03 03:30 08:13 Sodium 135 L (137-145) mmol/L Potassium 5.4 H (3.6-5.0) mmol/L Chloride (98-107) mmol/L Carbon Dioxide 7 L* (22-30) mmol/L BUN (7-17) mg/dL Creatinine (0.6-1.2) mg/dL Glucose 410 H (65-100) mg/dL POC Glucose 376 H 294 H (70-105) mg/dL 10/01/20 10/01/20 Range/Units 09:26 11:57 Sodium (137-145) mmol/L Potassium (3.6-5.0) mmol/L Chloride 109.5 H (98-107) mmol/L Carbon Dioxide 9 L* (22-30) mmol/L BUN (7-17) mg/dL Creatinine (0.6-1.2) mg/dL Glucose 331 H (65-100) mg/dL POC Glucose 260 H (70-105) mg/dL
[2020-10-01] MEDS: ACETAMINOPHEN 325 MG TAB PO PRN (20:36)
[2020-10-02] MEDS: HEPARIN 5,000 UNIT/1 ML VIAL SUB-Q SCH ×4 (00:13→21:09)
[2020-10-02] MEDS: PANTOPRAZOLE 40 MG INJ IV SCH ×2 (00:13→10:07)
[2020-10-02] MEDS: INSULIN REGULAR, HUMAN 100 UNITS/1 ML SUB-Q SCH ×5 (00:13→21:13)
[2020-10-02] MEDS: LORazepam 1 MG TAB PO SCH ×3 (00:58→15:12)
[2020-10-02] MEDS: METOCLOPRAMIDE 10 MG/2 ML INJ IV SCH ×5 (00:59→21:04)
[2020-10-02] MEDS: MORPHINE 2 MG/1 ML INJ IV PRN ×2 (02:28→08:32)
[2020-10-02] MEDS: ONDANSETRON 4 MG/2 ML INJ IV PRN (02:28)
[2020-10-02] MEDS: INSULIN NPH, HUMAN 100 UNIT/1 ML SUB-Q SCH ×2 (08:31→17:21)
[2020-10-02] MEDS: cefTRIAXone/NS 1 GM/50 ML 1 GM/50 ML BAG IV SCH (10:33)
[2020-10-02] MEDS ORDERED: ONDANSETRON 8 MG ODT TAB PO PRN (12:41)
[2020-10-02 14:48] LABS: Blood Urea Nitrogen 15 mg/dL (7-17); Calcium 10.1 mg/dL (8.4-10.2); Hemolysis Index 16
[2020-10-02 14:52] LABS: BUN/Creatinine Ratio 30
[2020-10-02] MEDS: PROMETHAZINE 25 MG TAB PO PRN ×2 (15:12→22:18)
--- NOTE | 2020-10-02 16:00 | Event Note ---
Date: 10/02/20 Full consult dictated - pt ho dm, reported gastroparesis now presents w/ n/v, noted +Cannabis - pt taking showers all day per staff - though may be gastroparesis suspect element of Cannabis hyperemeiss - conservative management - no plans to scope - advance diet as improve
--- NOTE | 2020-10-02 17:08 | Progress Note ---
Assessment and Plan -- DKA (diabetic ketoacidoses) Patient admitted with DKA protocol: Insulin drip, blood glucose monitoring every hour, frequent BMP Anion gap now closed, off insulin drip and continue on long-acting insulin and SSI -- Intractable nausea and vomiting Possibly secondary to the DKA and Cannabis hyperemeiss. We will continue on IV fluid and also placed on antiemetic. Advance diet as tolerated -- UTI (urinary tract infection) Patient placed on empiric IV antibiotics. Await urine culture results. --Hyperkalemia, resolved --Hyponatremia, likely due to hyperglycemia, resolved --Hypokalemia, replete, likely due to GI losses with vomiting --Sinus tachycardia, likely due to stress --Metabolic acidosis, likely due to vomiting, continue IV fluid --Substance abuse, UDS positive for marijuana Counseled for cessation -- DVT prophylaxis Patient placed on subcutaneous heparin. -- Full code status Daily clinical course: 09/30/20: Anion gap resolved, DC heparin drip, placed on subcu insulin, initiate clear liquid diet as patient having persistent nausea and vomiting. We will add Reglan and PPI IV, continue to follow clinically, transfer to telemetry. Patient tested negative for COVID-19 2 days ago, she did not receive COVID-19 vaccine. 10/01/20: cont to c/o severe n/v. change meds to iv, consult GI, change PPI to BID. Follow clinically, replace electrolytes 10/02/20: Patient has been showering all day per RN report stating it is helping her with her nausea and vomiting. Noted GI recommendation, no plan for school. Will advance diet to full liquid diet. Will stop IV morphine. We will replete potassium, follow BMP. DC possibly tomorrow when clinically more stable. Continue to follow clinically for now Subjective Date of service: 10/02/20 Interval history: Patient seen and examined. Medical records and medication list reviewed. No acute event overnight noted by the RN. Patient continued to complain of severe nausea and continues vomiting. Discussed plan of care at bedside with patient's RN. Objective - Exam Narrative Exam: GENERAL: well-developed young female sitting on bed HEENT: Normocephalic. Atraumatic. No conjunctival congestion or icterus. Patient has moist mucous membranes. NECK: Supple. Trachea midline. CHEST/LUNGS: Clear to auscultated bilaterally, breathing nonlabored. No wheezes crackles or rhonchi. HEART/CARDIOVASCULAR: Regular in rate and rhythm. S1 and S2 positive. ABDOMEN: Abdomen is soft, Patient has normal bowel sounds. SKIN: There is no rash. Warm and dry. NEURO: No focal motor deficit. Follows command. MUSCULOSKELETAL: No joint effusion or tenderness. EXTRIMITY: No edema, no cyanosis or clubbing. PSYCH: Cooperative - Constitutional Vitals: Vital Signs - 12hr 10/02/20 07:48 O2 Sat by Pulse 98 Oximetry - Labs CBC & Chem 7: 09/29/20 20:37 10/02/20 23:14 Labs: Abnormal lab results 10/01/20 10/01/20 10/01/20 Range/Units 18:00 20:59 23:46 Potassium (3.6-5.0) mmol/L Chloride (98-107) mmol/L Carbon Dioxide (22-30) mmol/L Creatinine (0.6-1.2) mg/dL Glucose (65-100) mg/dL POC Glucose 129 H 132 H 151 H (70-105) mg/dL 10/02/20 10/02/20 10/02/20 Range/Units 04:30 07:22 13:50 Potassium 3.4 L D (3.6-5.0) mmol/L Chloride 110.2 H (98-107) mmol/L Carbon Dioxide 16 L D (22-30) mmol/L Creatinine 0.5 L (0.6-1.2) mg/dL Glucose 184 H (65-100) mg/dL POC Glucose 144 H 166 H (70-105) mg/dL
[2020-10-02] MEDS ORDERED: cloNIDine 0.1 MG TAB PO SCH (17:30)
[2020-10-02] MEDS: DEXTROSE 50% IN WATER (25GM) 50 ML SYRINGE IV PRN (20:59)
[2020-10-02] MEDS: ACETAMINOPHEN 325 MG TAB PO PRN (22:18)
[2020-10-02] MEDS: cloNIDine 0.1 MG TAB PO SCH (22:27)
[2020-10-02] MEDS: SUCRALFATE 1 GM TAB PO SCH (22:27)
[2020-10-03] MEDS: DEXTROSE 50% IN WATER (25GM) 50 ML SYRINGE IV PRN (03:38)
[2020-10-03] MEDS ORDERED: LEVOTHYROXINE 50 MCG TAB PO SCH (06:00)
[2020-10-03 06:07] VITALS: BP 122/73
[2020-10-03] MEDS: HEPARIN 5,000 UNIT/1 ML VIAL SUB-Q SCH (06:38)
[2020-10-03] MEDS ORDERED: PANTOPRAZOLE 40 MG TAB PO SCH (07:30)
[2020-10-03] MEDS: INSULIN REGULAR, HUMAN 100 UNITS/1 ML SUB-Q SCH (08:00)
[2020-10-03 08:59] LABS: Basophils % (Auto) 0.4 % (0.0-1.8); Eosinophils % (Auto) 0.5 % (0.0-4.3); Hematocrit 33.5 % (30.3-42.9); Hemoglobin 11.3 gm/dl (10.1-14.3); Lymphocytes # (Auto) 3.5 K/mm3 (1.2-5.4); Lymphocytes % (Auto) 41.7 % (13.4-35.0); Mean Corpuscular HGB Conc 34 % (30-34); Mean Corpuscular Volume 80 fl (79-97); Monocytes # (Auto) 0.7 K/mm3 (0.0-0.8); Monocytes % (Auto) 8.2 % (0.0-7.3); Platelet Count 469 K/mm3 (140-440); Red Cell Distribution Width 15.1 % (13.2-15.2)
--- NOTE | 2020-10-03 09:05 | Discharge Summary ---
Providers - Providers Date of Admission: 09/29/20 22:21 Date of discharge: 10/03/20 Attending physician: MAGGIE BENOIT 09/29/20 22:30 Consult to Dietitian/Nutrition [CONS] Routine Physician Instructions: Reason For Exam: Reason for Consult: Diet education Consult to Physician [CONS] Routine Comment: Consulting Provider: MERON FITZPATRICK Physician Instructions: Reason For Exam: DKA - ON INSULIN DRIP 10/01/20 15:06 Consult to Physician [CONS] Routine Comment: Consulting Provider: ANGLE DALE Physician Instructions: Reason For Exam: severe gastroparesis Hospitalization Condition: Stable Hospital course: 25-year-old female with significant past medical history of diabetes mellitus and gastroparesis presenting to the emergency room complaining of nausea and vomiting for last 24 hours. She has not been able to keep any meals down. Denies any contact with anyone with COVID-19. Work-up in the emergency room labs were significant for leukocytosis of 13.3, blood glucose of 458. Urine drug screen was positive for marijuana. Patient was admitted with DKA and mild UTI. Daily clinical course: 09/30/20: Anion gap resolved, DC insulin drip, placed on subcu insulin, initiate clear liquid diet as patient having persistent nausea and vomiting. We will add Reglan and PPI IV, continue to follow clinically, transfer to telemetry. Patient tested negative for COVID-19 2 days ago, she did not receive COVID-19 vaccine. 10/01/20: cont to c/o severe n/v. change meds to iv, consult GI, change PPI to BID. Follow clinically, replace electrolytes 10/02/20: Patient has been showering all day per RN report stating it is helping her with her nausea and vomiting. Noted GI recommendation, no plan for endoscopy. Will advance diet to full liquid diet. Will stop IV morphine. We will replete potassium, follow BMP. DC possibly tomorrow when clinically more stable. Continue to follow clinically for now. 10/03/20: Nausea vomiting has improved, patient is tolerating full liquid diet. Consultation for substance abuse and diet glycemic control. Patient will be discharged home today with outpatient follow-up. Discharge plan and management was thoroughly discussed with the patient and she verbalized understanding. Disposition: 01 HOME / SELF CARE / HOMELESS Final Discharge Diagnosis (Prints w/discharge instructions): -- DKA (diabetic ketoacidoses). -- Intractable nausea and vomiting, Possibly secondary to the DKA and Cannabis hyperemeiss. -- UTI (urinary tract infection). --Hyperkalemia, resolved. --Hyponatremia, likely due to hyperglycemia. --Hypokalemia, repleted. --Sinus tachycardia, likely due to stress. --Metabolic acidosis, likely due to vomiting. --Substance abuse, UDS positive for marijuana Time spent for discharge: 34 minutes Core Measure Documentation - Palliative Care Palliative Care/ Comfort Measures: Not Applicable - Core Measures Any of the following diagnoses?: none Exam - Physical Exam Narrative exam: GENERAL: well-developed young female sitting on bed HEENT: Normocephalic. Atraumatic. No conjunctival congestion or icterus. Patient has moist mucous membranes. NECK: Supple. Trachea midline. CHEST/LUNGS: Clear to auscultated bilaterally, breathing nonlabored. No wheezes crackles or rhonchi. HEART/CARDIOVASCULAR: Regular in rate and rhythm. S1 and S2 positive. ABDOMEN: Abdomen is soft, Patient has normal bowel sounds. SKIN: There is no rash. Warm and dry. NEURO: No focal motor deficit. Follows command. MUSCULOSKELETAL: No joint effusion or tenderness. EXTRIMITY: No edema, no cyanosis or clubbing. PSYCH: Cooperative - Constitutional Vitals: Temp Pulse Resp BP Pulse Ox 98.0 F 81 20 122/73 98 10/03/20 05:08 10/03/20 01:19 10/03/20 05:08 10/03/20 05:08 10/03/20 03:13 Plan Activity: advance as tolerated Weight Bearing Status: Weight Bear as Tolerated Diet: diabetic, other (Abstinence from substance abuse) Special Instructions: record blood sugar diary Follow up with: ANDI HOWARD [Other] - 7 Days Prescriptions: Sucralfate [Carafate] 1 gm PO ACHS 30 Days cloNIDine [Catapres] 0.05 mg PO Q12HR #30 tablet Pantoprazole [Protonix TAB] 40 mg PO QDAC #30 tablet Metoclopramide [Reglan] 10 mg PO ACHS #120 tablet
[2020-10-03] MEDS: METOCLOPRAMIDE 10 MG/2 ML INJ IV SCH (09:09)
[2020-10-03] MEDS: SUCRALFATE 1 GM TAB PO SCH (09:09)
[2020-10-03] MEDS: INSULIN NPH, HUMAN 100 UNIT/1 ML SUB-Q SCH (09:13)
[2020-10-03] MEDS: cefTRIAXone/NS 1 GM/50 ML 1 GM/50 ML BAG IV SCH (09:14)
[2020-10-03 09:39] LABS: Blood Urea Nitrogen 15 mg/dL (7-17); Calcium 9.7 mg/dL (8.4-10.2); Hemolysis Index 2
[2020-10-03 09:41] LABS: BUN/Creatinine Ratio 38
--- NOTE | 2020-10-03 10:00 | Consultation ---
DATE OF CONSULTATION: 10/02/2020 INDICATIONS: Nausea and vomiting. HISTORY: The patient is a 25-year-old female with a history of diabetes and reported gastroparesis, now presents with nausea and vomiting. The patient is usually followed at [place] [facility] where she states all of her evaluation and management have been. The patient presented now with nausea, vomiting, feeling sick. She denies any recent travel or sick contacts. She denies any other significant symptoms. The patient subsequently came to the Emergency Room with those complaints. In the Emergency Room, the patient was noted to be in DKA with a mild UTI. Her urine drug screen was also positive for marijuana. The patient subsequently was admitted and GI consulted. PAST MEDICAL HISTORY: 1. Diabetes. 2. Hypertension. 3. Gastroparesis. MEDICATIONS: Reviewed and updated in chart. ALLERGIES: No known drug allergies. SOCIAL HISTORY: Positive for marijuana. Social alcohol. FAMILY HISTORY: Negative for colon cancer, IBD, or liver disease. REVIEW OF SYSTEMS: GENERAL: Reports some weakness. HEENT: Denies visual complaints or tinnitus. PULMONARY: Reports of shortness of breath. CARDIOVASCULAR: Denies chest pain. GASTROINTESTINAL: Reports nausea and vomiting. All points of a 10-point review of systems otherwise negative. PHYSICAL EXAMINATION: VITAL SIGNS: Temperature of 98.7, pulse 78, respirations 18, and blood pressure 98/68. GENERAL: Nourished female in no acute distress. HEENT: Pupils are round and reactive. PULMONARY: Rhonchi. CARDIAC: Regular rhythm, normal S1, S2. ABDOMEN: Bowel sounds present. SKIN: No gross rashes. LABORATORY DATA: White count of 13, hemoglobin and hematocrit of 13.5 and 40.3, platelet count of 661. Chem-7, sodium of 141, potassium 4.4, chloride 109, CO2 of 9, BUN and creatinine of 13 and 0.6. ASSESSMENT AND PLAN: A 25-year-old female with history of diabetes and a reported diagnosis of gastroparesis, now presents with recurrent nausea, vomiting with noted positive urine drug screen and in DKA. Possibility of gastroparesis, but also given the fact that the patient since she has been admitted has been pretty much , suspect possibility of cannabis-induced hyperemesis. Conservative management is noted below. PLAN: 1. Clear liquid diet. 2. Antiemetics such as Zofran p.r.n. as well as Reglan as ordered. 3. PPI IV b.i.d. as ordered. 4. Continue clear liquid diet and advance as tolerated. 5. No indication for endoscopy at this time. 6. We will follow. Further recommendation based on progress. TID: [id number] RECEIPT: [id number] MINA/BREA/VIS
[2020-10-03] MEDS: cloNIDine 0.1 MG TAB PO SCH (12:16)
--- NOTE | 2020-10-03 13:30 | Gastroenterology Progress Note ---
Assessment and Plan 1. GI: pt symptoms overall imp[roved - suspepct DKA w/ Cannabis hyperemesis - advance diet as tolerated - will sign off, call if needed Subjective Date of service: 10/03/20 Interval history: - nausea, vomiting improved Objective - Constitutional Vitals: Temp Pulse Resp BP Pulse Ox 98.0 F 81 20 122/73 98 10/03/20 05:08 10/03/20 01:19 10/03/20 05:08 10/03/20 05:08 10/03/20 10:00 General appearance: no acute distress - EENT Eyes: PERRL - Respiratory Respiratory: bilateral: CTA - Cardiovascular Rhythm: regular Heart Sounds: Present: S1 & S2 - Gastrointestinal General gastrointestinal: Present: soft, non-tender, non-distended - Labs CBC & Chem 7: 10/03/20 07:56 10/03/20 07:56 Labs: Laboratory Results - last 24 hr 10/02/20 10/02/20 10/02/20 13:50 17:12 20:47 WBC RBC Hgb Hct MCV MCH MCHC RDW Plt Count Lymph % (Auto) [place] % (Auto) Eos % (Auto) Baso % (Auto) Lymph # (Auto) [place] # (Auto) Eos # (Auto) Baso # (Auto) Seg Neutrophils % Seg Neutrophils # Sodium 144 Potassium 3.4 L D Chloride 110.2 H Carbon Dioxide 16 L D Anion Gap 21 BUN 15 Creatinine 0.5 L Estimated GFR > 60 BUN/Creatinine Ratio 30 Glucose 184 H POC Glucose 170 H 29 L Calcium 10.1 10/02/20 10/02/20 10/03/20 21:53 23:14 03:31 WBC RBC Hgb Hct MCV MCH MCHC RDW Plt Count Lymph % (Auto) [place] % (Auto) Eos % (Auto) Baso % (Auto) Lymph # (Auto) [place] # (Auto) Eos # (Auto) Baso # (Auto) Seg Neutrophils % Seg Neutrophils # Sodium Potassium Chloride Carbon Dioxide Anion Gap BUN Creatinine Estimated GFR BUN/Creatinine Ratio Glucose 193 H POC Glucose 139 H 58 L Calcium 10/03/20 10/03/20 10/03/20 06:21 07:56 07:56 WBC 8.5 RBC 4.20 Hgb 11.3 Hct 33.5 MCV 80 MCH 27 L MCHC 34 RDW 15.1 Plt Count 469 H Lymph % (Auto) 41.7 H [place] % (Auto) 8.2 H Eos % (Auto) 0.5 Baso % (Auto) 0.4 Lymph # (Auto) 3.5 [place] # (Auto) 0.7 Eos # (Auto) 0.0 Baso # (Auto) 0.0 Seg Neutrophils % 49.2 Seg Neutrophils # 4.2 Sodium 141 Potassium 3.1 L Chloride 107.9 H Carbon Dioxide 24 D Anion Gap 12 BUN 15 Creatinine 0.4 L Estimated GFR > 60 BUN/Creatinine Ratio 38 Glucose 213 H POC Glucose 165 H Calcium 9.7 10/03/20 08:14 WBC RBC Hgb Hct MCV MCH MCHC RDW Plt Count Lymph % (Auto) [place] % (Auto) Eos % (Auto) Baso % (Auto) Lymph # (Auto) [place] # (Auto) Eos # (Auto) Baso # (Auto) Seg Neutrophils % Seg Neutrophils # Sodium Potassium Chloride Carbon Dioxide Anion Gap BUN Creatinine Estimated GFR BUN/Creatinine Ratio Glucose POC Glucose 207 H Calcium
== END 2020-10-03 12:00 | disposition home or self-care (01) | DRG 638 ==
LOC: ED 19:45 → CC1 22:21 → 4A 09-30 18:59
PROVIDERS: ADMIT Internal Medicine Geriatric Medicine; ATTEND Internal Medicine
DX: E10.10 Type 1 diabetes mellitus with ketoacidosis without coma (principal); E87.1 Hypo-osmolality and hyponatremia; N39.0 Urinary tract infection, site not specified; I10 Essential (primary) hypertension; E87.5 Hyperkalemia; E87.6 Hypokalemia; R00.0 Tachycardia, unspecified; F12.10 Cannabis abuse, uncomplicated; F19.10 Other psychoactive substance abuse, uncomplicated; D72.829 Elevated white blood cell count, unspecified; F17.200 Nicotine dependence, unspecified, uncomplicated; Z79.4 Long term (current) use of insulin; Z79.899 Other long term (current) drug therapy
CPT/HCPCS: 36415; 71045; 80048; 80053; 80307; 81001; 82805; 82947; 82962; 83735; 84100; 84703; 85007; 85025; 87086; 93005; G0378; C9113; J0696; J1200; J1630; J1644; J1815; J2270; J2405; J2765; J7030; Q0162; Q0169

== ENCOUNTER 2021-05-04 16:06 | Inpatient (IN) | payer MEDICAID ==
[2021-05-04] MEDS ORDERED: HALOPERIDOL LACTATE 5 MG/1 ML INJ IM ONE (16:25)
[2021-05-04] MEDS ORDERED: SODIUM CHLORIDE 0.9% 1000 ML 1,000 ML IV ONE ×2 (16:25→20:38)
--- NOTE | 2021-05-04 16:27 | Emergency Department Report ---
ED Abdominal Pain HPI - General Chief Complaint: Nausea/Vomiting/Diarrhea Stated Complaint: NAUSEA Time Seen by Provider: 05/04/21 16:25 Source: patient, EMS Mode of arrival: Stretcher Limitations: No Limitations - History of Present Illness Initial Comments: CC: abdominal pain HPI: This is a 26 yo female with hx of DKA, gastroparesis, HTN, marijuana use who presents with abdominal pain and vomiting for several days. Severe diffuse abdominal pain. MD Complaint: abdominal pain -: Gradual Location: diffuse Migration to: no migration Severity scale (0 -10): 9 Quality: cramping Consistency: constant Improves With: nothing Worsens With: nothing Associated Symptoms: nausea, vomiting - Related Data Home Medications Medication Instructions Recorded Confirmed Last Taken Ferrous Sulfate [Iron 325 MG] 325 mg PO QAM 04/16/21 04/16/21 Unknown Insulin Glargine,Hum.rec.anlog 12 unit SQ QDAY 04/16/21 04/16/21 Unknown [Basaglar Kwikpen U-100] Insulin Lispro [Admelog Solostar] 10 unit SQ TIDAC 04/16/21 04/16/21 Unknown Previous Rx's Medication Instructions Recorded Last Taken Type Levothyroxine [Synthroid] 50 mcg PO 0600 #30 tablet 04/17/21 Unknown Rx lisinopriL [Zestril TAB] 10 mg PO QDAY #30 tablet 04/17/21 Unknown Rx Allergies Allergy/AdvReac Type Severity Reaction Status Date / Time animal dander Allergy Unknown Verified 04/14/21 19:47 ondansetron [From Zofran] Allergy Vomiting Verified 04/14/21 19:47 ED Review of Systems ROS: Stated complaint: NAUSEA Other details as noted in HPI Comment: All other systems reviewed and negative Constitutional: denies: chills, fever, malaise Respiratory: denies: cough, shortness of breath Cardiovascular: denies: chest pain Gastrointestinal: abdominal pain, nausea, vomiting ED Past Medical Hx - Past Medical History Previous Medical History?: Yes Hx Hypertension: Yes Hx Congestive Heart Failure: No Hx Diabetes: Yes Hx Deep Vein Thrombosis: No Hx Renal Disease: No Hx Sickle Cell Disease: No Hx Seizures: No Hx Asthma: No Hx COPD: No Hx HIV: No Additional medical history: Gastroparesis - Surgical History Past Surgical History?: Yes Additional Surgical History: 2017. wisdom teeth - Social History Smoking Status: Never Smoker Substance Use Type: Marijuana - Medications Home Medications: Home Medications Medication Instructions Recorded Confirmed Last Taken Type Ferrous Sulfate [Iron 325 MG] 325 mg PO QAM 04/16/21 04/16/21 Unknown History Insulin Glargine,Hum.rec.anlog 12 unit SQ QDAY 04/16/21 04/16/21 Unknown History [Basaglar Kwikpen U-100] Insulin Lispro [Admelog Solostar] 10 unit SQ TIDAC 04/16/21 04/16/21 Unknown History Levothyroxine [Synthroid] 50 mcg PO 0600 #30 tablet 04/17/21 Unknown Rx lisinopriL [Zestril TAB] 10 mg PO QDAY #30 tablet 04/17/21 Unknown Rx ED Physical Exam - General Limitations: No Limitations General appearance: alert, in no apparent distress - Head Head exam: Present: atraumatic, normocephalic - Eye Eye exam: Present: normal appearance - ENT ENT exam: Present: mucous membranes moist - Neck Neck exam: Present: normal inspection, full ROM - Respiratory Respiratory exam: Present: normal lung sounds bilaterally. Absent: respiratory distress, wheezes, stridor - Cardiovascular Cardiovascular Exam: Present: normal rhythm, tachycardia, normal heart sounds. Absent: systolic murmur, diastolic murmur, rubs, gallop - GI/Abdominal GI/Abdominal exam: Present: soft, normal bowel sounds. Absent: distended, tenderness, guarding, rebound - Extremities Exam Extremities exam: Present: normal inspection - Neurological Exam Neurological exam: Present: alert, oriented X3 - Psychiatric Psychiatric exam: Present: normal affect, normal mood - Skin Skin exam: Present: warm, dry, intact, normal color. Absent: rash ED Course Vital Signs 05/04/21 05/04/21 05/04/21 16:09 16:31 17:16 Temperature 98.1 F Pulse Rate 110 H Respiratory 16 Rate Blood Pressure Blood Pressure 170/90 [Right] O2 Sat by Pulse 97 100 100 Oximetry 05/04/21 05/04/21 05/04/21 17:30 17:46 18:00 Temperature Pulse Rate Respiratory Rate Blood Pressure Blood Pressure [Right] O2 Sat by Pulse 100 100 100 Oximetry 05/04/21 05/04/21 05/04/21 18:16 18:30 18:45 Temperature Pulse Rate Respiratory Rate Blood Pressure Blood Pressure [Right] O2 Sat by Pulse 100 100 99 Oximetry 05/04/21 05/04/21 05/04/21 18:59 19:00 19:15 Temperature Pulse Rate 126 H Respiratory 18 Rate Blood Pressure Blood Pressure 138/100 [Right] O2 Sat by Pulse 100 100 100 Oximetry 05/04/21 05/04/21 05/04/21 19:31 19:45 20:01 Temperature Pulse Rate Respiratory Rate Blood Pressure 166/113 Blood Pressure [Right] O2 Sat by Pulse 100 100 99 Oximetry 05/04/21 05/04/21 05/04/21 20:15 20:31 20:45 Temperature Pulse Rate Respiratory Rate Blood Pressure 166/113 151/99 151/99 Blood Pressure [Right] O2 Sat by Pulse 99 97 100 Oximetry 05/04/21 05/04/21 05/04/21 21:01 21:15 21:31 Temperature Pulse Rate Respiratory Rate Blood Pressure 151/99 162/115 179/117 Blood Pressure [Right] O2 Sat by Pulse 100 98 100 Oximetry 05/04/21 05/04/21 05/04/21 21:45 22:11 22:15 Temperature Pulse Rate Respiratory Rate Blood Pressure 179/117 150/121 Blood Pressure [Right] O2 Sat by Pulse 100 100 98 Oximetry 05/04/21 05/04/21 22:29 22:30 Temperature Pulse Rate 140 H 140 H Respiratory 21 19 Rate Blood Pressure 162/105 Blood Pressure 163/104 [Right] O2 Sat by Pulse 100 100 Oximetry ED Medical Decision Making - Lab Data Result diagrams: 05/04/21 20:47 05/04/21 20:47 - Medical Decision Making Diabetic ketoacidosis, intractable nausea vomiting with history of diabetic gastroparesis work-up was notable for thrombocytopenia. Patient admitted to the hospital service. Treatment in emergency department: Normal saline boluses, regular insulin bolus, insulin infusion patient also received antiemetic and IV morphine for pain control. Critical care attestation.: If time is entered above; I have spent that time in minutes in the direct care of this critically ill patient, excluding procedure time. ED Disposition Clinical Impression: DKA (diabetic ketoacidoses), Intractable nausea and vomiting, Gastroparesis Disposition: ADMITTED INPATIENT Is pt being admited?: Yes Does the pt Need Aspirin: No Condition: Fair Instructions: Diabetic Ketoacidosis (ED)
[2021-05-04] MEDS ORDERED: diphenhydrAMINE 50 MG/ML VIAL IV ONE (22:02)
[2021-05-04] MEDS ORDERED: METOCLOPRAMIDE 10 MG/2 ML INJ IV ONE (22:02)
[2021-05-04] MEDS ORDERED: MORPHINE 4 MG/1 ML INJ IV ONE (22:02)
[2021-05-04 22:29] LABS: Alanine Aminotransferase 13 units/L (7-56); Albumin 4.4 g/dL (3.9-5); Blood Urea Nitrogen 17 mg/dL (7-17); Calcium 10.2 mg/dL (8.4-10.2); Hemolysis Index 18
[2021-05-04 22:30] LABS: BUN/Creatinine Ratio 34; Mean Corpuscular HGB Conc 30 % (30-34); Mean Corpuscular Volume 90 fl (79-97); Red Blood Count 4.24 M/mm3 (3.65-5.03); Red Cell Distribution Width 15.6 % (13.2-15.2)
[2021-05-04 22:31] LABS: Hematocrit 38.3 % (30.3-42.9); Hemoglobin 11.3 gm/dl (10.1-14.3); Platelet Count 60 K/mm3 (140-440)
[2021-05-04] MEDS ORDERED: INSULIN REGULAR, HUMAN 100 UNITS/1 ML IV STA (22:47)
[2021-05-04] MEDS ORDERED: ACETAMINOPHEN 325 MG TAB PO PRN (22:56)
[2021-05-04] MEDS ORDERED: ALBUTEROL 2.5 MG/3 ML NEBU IH PRN (22:56)
[2021-05-04] MEDS ORDERED: DEXTROSE 50% IN WATER (25GM) 50 ML SYRINGE IV PRN (22:56)
[2021-05-04] MEDS ORDERED: SODIUM CHLORIDE 0.45% 1000 ML 1,000 ML IV SCH (23:00)
[2021-05-04] MEDS ORDERED: INSULIN REGULAR, HUMAN 100 UNITS in SODIUM CHLORIDE 0.9% 99 ML IV SCH ×2 (23:00)
--- NOTE | 2021-05-04 23:06 | History and Physical Report ---
History of Present Illness Date of examination: 05/04/21 Date of admission: 05/04/21 Chief complaint: Nausea vomiting Hyperglycemia History of present illness: 26 yo female with history of DKA, gastroparesis, HTN, marijuana use was brought to the emergency room because of severe diffuse abdominal pain and vomiting for several days. Patient also complained of intractable nausea and vomiting. In the emergency room patient is found to have DKA. Patient blood glucose is 443, bicarb 10, anion gap 34 BUN 17 creatinine 0.5. We are going to admit the patient to the ICU put the patient on IV fluid insulin drip as per protocol and consult critical care Past History Past Medical History: diabetes, hypertension, other (Diabetic gastroparesis) Past Surgical History: Other ( 2017. wisdom teeth) Social history: other (Marijuana abuse, no smoking) Family history: no significant family history Medications and Allergies Allergies Allergy/AdvReac Type Severity Reaction Status Date / Time animal dander Allergy Unknown Verified 04/14/21 19:47 ondansetron [From Zofran] Allergy Vomiting Verified 04/14/21 19:47 Home Medications Medication Instructions Recorded Confirmed Last Taken Type Ferrous Sulfate [Iron 325 MG] 325 mg PO QAM 04/16/21 04/16/21 Unknown History Insulin Glargine,Hum.rec.anlog 12 unit SQ QDAY 04/16/21 04/16/21 Unknown History [Basaglar Benji U-100] Insulin Lispro [Admelog Solostar] 10 unit SQ TIDAC 04/16/21 04/16/21 Unknown History Levothyroxine [Synthroid] 50 mcg PO 0600 #30 tablet 04/17/21 Unknown Rx lisinopriL [Zestril TAB] 10 mg PO QDAY #30 tablet 04/17/21 Unknown Rx Active Meds: Active Medications Acetaminophen (Acetaminophen 325 Mg Tab) 650 mg PO Q4H PRN PRN Reason: Pain MILD(1-3)/Fever >100.5/[place] Albuterol (Albuterol 2.5 Mg/3 Ml Nebu) 2.5 mg IH Q3HRT PRN PRN Reason: Shortness Of Breath Albuterol/Ipratropium (Ipratropium/Albuterol Sulfate 3 Ml Ampul.Neb) 1 ampul IH Q6HRT SILVANA Dextrose (Dextrose 50% In Water (25gm) 50 Ml Syringe) 0 ml IV Q30MIN PRN; Protocol PRN Reason: Hypoglycemia Famotidine (Famotidine 20 Mg/2 Ml Inj) 20 mg IV BID SLIVANA Insulin Human Regular 100 (units/ Sodium Chloride) 100 mls @ 5 mls/hr IV TITR SILVANA; Protocol Insulin Human Regular 100 (units/ Sodium Chloride) 100 mls @ 1 mls/hr IV TITR SILVANA; Protocol Sodium Chloride (Nacl 0.45% 1000 Ml) 1,000 mls @ 150 mls/hr IV DIRECT SILVANA Morphine Sulfate (Morphine 2 Mg/1 Ml Inj) 2 mg IV Q4H PRN PRN Reason: Pain, Moderate (4-6) Ondansetron HCl (Ondansetron 4 Mg/2 Ml Inj) 4 mg IV Q8H PRN PRN Reason: Nausea And Vomiting Sodium Chloride (Sodium Chloride 0.9% 10 Ml Flush Syringe) 10 ml IV BID SILVANA Sodium Chloride (Sodium Chloride 0.9% 10 Ml Flush Syringe) 10 ml IV PRN PRN PRN Reason: LINE FLUSH Review of Systems All systems: negative Gastrointestinal: abdominal pain, nausea, vomiting, diarrhea Exam - Constitutional Vitals: Temp Pulse Resp BP Pulse Ox 98.1 F 141 H 18 154/102 100 05/04/21 16:09 05/04/21 22:45 05/04/21 22:45 05/04/21 22:45 05/04/21 22:45 General appearance: Present: no acute distress, well-nourished - EENT Eyes: Present: PERRL ENT: hearing intact, clear oral mucosa - Neck Neck: Present: supple, normal ROM - Respiratory Respiratory effort: normal Respiratory: bilateral: diminished - Cardiovascular Heart Sounds: Present: S1 & S2. Absent: rub, click - Extremities Extremities: pulses symmetrical, No edema Peripheral Pulses: within normal limits - Abdominal General gastrointestinal: Present: soft, non-tender, non-distended, normal bowel sounds Female genitourinary: Present: normal - Integumentary Integumentary: Present: clear, warm, dry - Musculoskeletal Musculoskeletal: gait normal, strength equal bilaterally - Psychiatric Psychiatric: appropriate mood/affect, intact judgment & insight - Neurologic Neurologic: CNII-XII intact, moves all extremities Results - Labs CBC & Chem 7: 05/04/21 20:47 05/04/21 20:47 Labs: Laboratory Last Values WBC 8.1 K/mm3 (4.5-11.0) 05/04/21 20:47 RBC 4.24 M/mm3 (3.65-5.03) 05/04/21 20:47 Hgb 11.3 gm/dl (10.1-14.3) 05/04/21 20:47 Hct 38.3 % (30.3-42.9) 05/04/21 20:47 MCV 90 fl (79-97) 05/04/21 20:47 MCH 27 pg (28-32) L 05/04/21 20:47 MCHC 30 % (30-34) 05/04/21 20:47 RDW 15.6 % (13.2-15.2) H 05/04/21 20:47 Plt Count 60 K/mm3 (140-440) L 05/04/21 20:47 Lymph % (Auto) Plan Rep 05/04/21 20:47 [place] % (Auto) Plan Rep 05/04/21 20:47 Eos % (Auto) Plan Rep 05/04/21 20:47 Baso % (Auto) Plan Rep 05/04/21 20:47 Lymph # (Auto) Plan Rep 05/04/21 20:47 [place] # (Auto) Plan Rep 05/04/21 20:47 Eos # (Auto) Plan Rep 05/04/21 20:47 Baso # (Auto) Plan Rep 05/04/21 20:47 Seg Neutrophils % Plan Rep 05/04/21 20:47 Seg Neutrophils # Plan Rep 05/04/21 20:47 Sodium 136 mmol/L (137-145) L 05/04/21 20:47 Potassium 4.8 mmol/L (3.6-5.0) 05/04/21 20:47 Chloride 97.1 mmol/L (98-107) L 05/04/21 20:47 Carbon Dioxide 10 mmol/L (22-30) L 05/04/21 20:47 Anion Gap 34 mmol/L 05/04/21 20:47 BUN 17 mg/dL (7-17) 05/04/21 20:47 Creatinine 0.5 mg/dL (0.6-1.2) L 05/04/21 20:47 Estimated GFR > 60 ml/min 05/04/21 20:47 BUN/Creatinine Ratio 34 % 05/04/21 20:47 Glucose 443 mg/dL (65-100) H 05/04/21 20:47 Calcium 10.2 mg/dL (8.4-10.2) 05/04/21 20:47 Total Bilirubin 0.30 mg/dL (0.1-1.2) 05/04/21 20:47 AST 23 units/L (5-40) 05/04/21 20:47 ALT 13 units/L (7-56) 05/04/21 20:47 Alkaline Phosphatase 128 units/L (35-129) 05/04/21 20:47 Total Protein 8.3 g/dL (6.3-8.2) H 05/04/21 20:47 Albumin 4.4 g/dL (3.9-5) 05/04/21 20:47 Albumin/Globulin Ratio 1.1 % 05/04/21 20:47 Lipase 12 units/L (13-60) L 05/04/21 20:47 HCG, Qual Negative (Negative) 05/04/21 20:47 Assessment and Plan VTE prophylaxis?: Chemical Plan of care discussed with patient/family: Yes - Patient Problems (1) DKA (diabetic ketoacidoses) Current Visit: Yes Status: Acute Plan to address problem: Admit the patient to the ICU. NPO. Half-normal saline at the rate of 150 cc/h. Insulin drip as per protocol. Consult critical care evaluation, serial BMP. Diabetic education (2) Gastroparesis Current Visit: Yes Status: Acute Plan to address problem: Reglan 10 mg IV every 8 hours. Pepcid 20 mg IV every 12 hours (3) Intractable nausea and vomiting Current Visit: Yes Status: Acute Plan to address problem: Zofran 4 mg IV every 6 hours as needed. Reglan 10 mg IV every 8 hours. Pepcid 20 mg IV every 12 hours (4) Cannabinoid hyperemesis syndrome Current Visit: No Status: Acute Plan to address problem: We counseled the patient regarding quit smoking marijuana. Zofran 4 mg IV every 6 hours as needed. (5) DVT prophylaxis Current Visit: No Status: Acute Plan to address problem: Heparin 5000 units subcu every 12 hours for DVT prophylaxis. Pepcid 20 mg IV every 12 hours for GI prophylaxis. Patient is a full code
[2021-05-04] MEDS ORDERED: DEXTROSE 10% *Hypoglycemia IV PRN (23:09)
[2021-05-04 23:40] LABS: Basophils % (Manual) 0 % (0.0-1.8); Eosinophils % (Manual) 0 % (0.0-4.3); Total Cells Counted 100
[2021-05-04 23:41] LABS: RBC Morphology Normal
[2021-05-04 23:51] LABS: Blood Urea Nitrogen 17 mg/dL (7-17); Calcium 9.4 mg/dL (8.4-10.2); Hemolysis Index 29
[2021-05-05 00:19] LABS: BUN/Creatinine Ratio 34
[2021-05-05] MEDS ORDERED: FAMOTIDINE 20 MG/2 ML INJ IV ONE (00:36)
[2021-05-05 02:19] LABS: Blood Urea Nitrogen 18 mg/dL (7-17); Calcium 9.9 mg/dL (8.4-10.2); Hemolysis Index 99
[2021-05-05 02:36] LABS: BUN/Creatinine Ratio 26
[2021-05-05] MEDS: HYDROmorphone 1 MG/1 ML INJ IV PRN ×2 (03:16→14:49)
[2021-05-05] MEDS: D5W/0.45% NACL/KCL 20 MEQ 20 MEQ/1,000 ML BAG IV SCH ×2 (03:19→14:22)
[2021-05-05] MEDS: IPRATROPIUM/ALBUTEROL SULFATE 3 ML AMPUL.NEB IH SCH ×3 (04:42→21:32)
[2021-05-05 04:55] LABS: Basophils % (Auto) 0.3 % (0.0-1.8); Hematocrit 36.1 % (30.3-42.9); Hemoglobin 11.5 gm/dl (10.1-14.3); Lymphocytes # (Auto) 1.4 K/mm3 (1.2-5.4); Lymphocytes % (Auto) 10.7 % (13.4-35.0); Mean Corpuscular HGB Conc 32 % (30-34); Mean Corpuscular Volume 84 fl (79-97); Monocytes # (Auto) 0.4 K/mm3 (0.0-0.8); Monocytes % (Auto) 3.4 % (0.0-7.3); Platelet Count 468 K/mm3 (140-440); Red Blood Count 4.32 M/mm3 (3.65-5.03); Red Cell Distribution Width 14.8 % (13.2-15.2)
[2021-05-05 05:16] LABS: Blood Urea Nitrogen 20 mg/dL (7-17); Calcium 10.1 mg/dL (8.4-10.2); Hemolysis Index 12
[2021-05-05 05:19] LABS: BUN/Creatinine Ratio 40
[2021-05-05] MEDS ORDERED: hydrALAZINE 20 MG/1 ML INJ IV PRN (05:49)
[2021-05-05] MEDS: ONDANSETRON 4 MG/2 ML INJ IV PRN ×2 (05:55→14:21)
[2021-05-05] MEDS: LEVOTHYROXINE 50 MCG TAB PO SCH (05:56)
[2021-05-05] MEDS ORDERED: LACTATED RINGERS 1,000 ML IV ONE (07:24)
[2021-05-05] MEDS: MORPHINE 2 MG/1 ML INJ IV PRN ×2 (08:13→12:51)
[2021-05-05 08:41] LABS: Blood Urea Nitrogen 22 mg/dL (7-17); Calcium 9.8 mg/dL (8.4-10.2); Hemolysis Index 6
[2021-05-05 08:45] LABS: BUN/Creatinine Ratio 37
--- NOTE | 2021-05-05 09:19 | Consultation ---
History of Present Illness - Reason for Consult Consult date: 05/05/21 DKA - History of Present Illness 26 y/o female admitted with DKA Past History Past Medical History: diabetes, hypertension, other (Diabetic gastroparesis) Past Surgical History: Other ( 2017. wisdom teeth) Social history: other (Marijuana abuse, no smoking) Family history: no significant family history Medications and Allergies Allergies Allergy/AdvReac Type Severity Reaction Status Date / Time animal dander Allergy Unknown Verified 04/14/21 19:47 ondansetron [From Zofran] Allergy Vomiting Verified 04/14/21 19:47 Home Medications Medication Instructions Recorded Confirmed Last Taken Type Ferrous Sulfate [Iron 325 MG] 325 mg PO QAM 04/16/21 04/16/21 Unknown History Insulin Glargine,Hum.rec.anlog 12 unit SQ QDAY 04/16/21 04/16/21 Unknown History [Basaglar Kwikpen U-100] Insulin Lispro [Admelog Solostar] 10 unit SQ TIDAC 04/16/21 04/16/21 Unknown History Levothyroxine [Synthroid] 50 mcg PO 0600 #30 tablet 04/17/21 Unknown Rx lisinopriL [Zestril TAB] 10 mg PO QDAY #30 tablet 04/17/21 Unknown Rx Active Meds: Active Medications Acetaminophen (Acetaminophen 325 Mg Tab) 650 mg PO Q4H PRN PRN Reason: Pain MILD(1-3)/Fever >100.5/[place] Albuterol (Albuterol 2.5 Mg/3 Ml Nebu) 2.5 mg IH Q3HRT PRN PRN Reason: Shortness Of Breath Albuterol/Ipratropium (Ipratropium/Albuterol Sulfate 3 Ml Ampul.Neb) 1 ampul IH Q6HRT [facility] Last Admin: 05/05/21 04:42 Dose: Not Given Dextrose (Dextrose 10% *Hypoglycemia) 0 ml IV PRN PRN PRN Reason: Hypoglycemia Famotidine (Famotidine 20 Mg/2 Ml Inj) 20 mg IV BID SILVANA Ferrous Sulfate (Ferrous Sulfate 325 Mg Tab) 325 mg PO QAM [facility] Heparin Sodium (Porcine) (Heparin 5,000 Unit/1 Ml Vial) 5,000 unit SUB-Q Q12HR [facility] Hydralazine HCl (Hydralazine 20 Mg/1 Ml Inj) 10 mg IV Q6HR PRN PRN Reason: Hypertension Last Admin: 05/05/21 05:56 Dose: 10 mg Hydromorphone HCl (Hydromorphone 1 Mg/1 Ml Inj) 0.5 mg IV Q3H PRN PRN Reason: Pain , Severe (7-10) Last Admin: 05/05/21 03:16 Dose: 0.5 mg Insulin Human Regular 100 (units/ Sodium Chloride) 100 mls @ 1 mls/hr IV TITR SILVANA; Protocol Last Titration: 05/05/21 09:03 Dose: 1.5 units/hr, 1.5 mls/hr Sodium Chloride (Nacl 0.45% 1000 Ml) 1,000 mls @ 150 mls/hr IV DIRECT SILVANA Last Admin: 05/05/21 01:51 Dose: 150 mls/hr Potassium Chloride/Dextrose/Sod Cl (D5w/0.45% Nacl/Kcl 20 Meq) 20 meq in 1,000 mls @ 125 mls/hr IV DIRECT SILVANA Last Admin: 05/05/21 03:19 Dose: 125 mls/hr Labetalol HCl (Labetalol 20 Mg/4 Ml Inj) 10 mg IV Q4HR PRN PRN Reason: Hypertension Levothyroxine Sodium (Levothyroxine 50 Mcg Tab) 50 mcg PO 0600 SILVANA Last Admin: 05/05/21 05:56 Dose: Not Given Lisinopril (Lisinopril 10 Mg Tab) 10 mg PO QDAY SILVANA Morphine Sulfate (Morphine 2 Mg/1 Ml Inj) 2 mg IV Q4H PRN PRN Reason: Pain, Moderate (4-6) Last Admin: 05/05/21 08:13 Dose: 2 mg Ondansetron HCl (Ondansetron 4 Mg/2 Ml Inj) 4 mg IV Q8H PRN PRN Reason: Nausea And Vomiting Last Admin: 05/05/21 05:55 Dose: 4 mg Sodium Chloride (Sodium Chloride 0.9% 10 Ml Flush Syringe) 10 ml IV BID SILVANA Sodium Chloride (Sodium Chloride 0.9% 10 Ml Flush Syringe) 10 ml IV PRN PRN PRN Reason: LINE FLUSH Exam - Constitutional Vitals: Temp Pulse Resp BP Pulse Ox 98.4 F 158 H 12 155/99 100 05/05/21 08:00 05/05/21 08:15 05/05/21 08:15 05/05/21 08:15 05/05/21 08:15 Results - Labs CBC & Chem 7: 05/05/21 04:26 05/05/21 07:47 Labs: Abnormal lab results 05/04/21 05/04/21 05/04/21 Range/Units 20:47 20:47 22:58 WBC (4.5-11.0) K/mm3 MCH 27 L (28-32) pg RDW 15.6 H (13.2-15.2) % Plt Count 60 L (140-440) K/mm3 Lymph % (Auto) (13.4-35.0) % Seg Neutrophils % (40.0-70.0) % Seg Neuts % (Manual) 89.0 H (40.0-70.0) % Lymphocytes % (Manual) 8.0 L (13.4-35.0) % Seg Neutrophils # (1.8-7.7) K/mm3 Lymphocytes # (Manual) 0.6 L (1.2-5.4) K/mm3 VBG pH 7.237 L (7.320-7.420) Sodium 136 L (137-145) mmol/L Potassium (3.6-5.0) mmol/L Chloride 97.1 L (98-107) mmol/L Carbon Dioxide 10 L (22-30) mmol/L BUN (7-17) mg/dL Creatinine 0.5 L (0.6-1.2) mg/dL Glucose 443 H (65-100) mg/dL POC Glucose (70-105) mg/dL Phosphorus (2.5-4.5) mg/dL Total Protein 8.3 H (6.3-8.2) g/dL Lipase 12 L (13-60) units/L 05/04/21 05/05/21 05/05/21 Range/Units 23:11 00:03 01:30 WBC (4.5-11.0) K/mm3 MCH (28-32) pg RDW (13.2-15.2) % Plt Count (140-440) K/mm3 Lymph % (Auto) (13.4-35.0) % Seg Neutrophils % (40.0-70.0) % Seg Neuts % (Manual) (40.0-70.0) % Lymphocytes % (Manual) (13.4-35.0) % Seg Neutrophils # (1.8-7.7) K/mm3 Lymphocytes # (Manual) (1.2-5.4) K/mm3 VBG pH (7.320-7.420) Sodium (137-145) mmol/L Potassium 5.1 H (3.6-5.0) mmol/L Chloride (98-107) mmol/L Carbon Dioxide 6 L* 7 L* (22-30) mmol/L BUN 18 H (7-17) mg/dL Creatinine 0.5 L (0.6-1.2) mg/dL Glucose 447 H 318 H (65-100) mg/dL POC Glucose 392 H (70-105) mg/dL Phosphorus 5.20 H (2.5-4.5) mg/dL Total Protein (6.3-8.2) g/dL Lipase (13-60) units/L 05/05/21 05/05/21 05/05/21 Range/Units 04:26 04:26 07:47 WBC 12.9 H (4.5-11.0) K/mm3 MCH 27 L (28-32) pg RDW (13.2-15.2) % Plt Count 468 H D (140-440) K/mm3 Lymph % (Auto) 10.7 L (13.4-35.0) % Seg Neutrophils % 85.6 H (40.0-70.0) % Seg Neuts % (Manual) (40.0-70.0) % Lymphocytes % (Manual) (13.4-35.0) % Seg Neutrophils # 11.0 H (1.8-7.7) K/mm3 Lymphocytes # (Manual) (1.2-5.4) K/mm3 VBG pH (7.320-7.420) Sodium (137-145) mmol/L Potassium (3.6-5.0) mmol/L Chloride 110.9 H 110.9 H (98-107) mmol/L Carbon Dioxide 14 L D 15 L (22-30) mmol/L BUN 20 H 22 H (7-17) mg/dL Creatinine 0.5 L (0.6-1.2) mg/dL Glucose 145 H 236 H (65-100) mg/dL POC Glucose (70-105) mg/dL Phosphorus (2.5-4.5) mg/dL Total Protein (6.3-8.2) g/dL Lipase (13-60) units/L
[2021-05-05] MEDS: HEPARIN 5,000 UNIT/1 ML VIAL SUB-Q SCH ×2 (10:44→22:01)
[2021-05-05] MEDS: FAMOTIDINE 20 MG/2 ML INJ IV SCH ×2 (10:44→22:01)
[2021-05-05] MEDS: LISINOPRIL 10 MG TAB PO SCH (10:45)
[2021-05-05] MEDS: FERROUS SULFATE 325 MG TAB PO SCH (10:45)
--- NOTE | 2021-05-05 15:50 | Progress Note ---
Assessment and Plan Assessment and plan: This is a a 25-year-old female with insulin-dependent diabetes mellitus, gastroparesis admitted with DKA Neuro: ? Noncompliant -Avoid delirium -Reorientation as needed -Maintain sleep-wake cycle -As needed analgesia -Stressed medical compliance -Of note this is patient's second admission this month for DKA -Patient states that she is compliant with her medical treatment plan however multiple readmissions for DKA Cardiac: Sinus tachycardia, h/o HTN -As needed hydralazine -Blood pressure monitoring per protocol -Home medications include Zestril Respiratory: NAD -Supplemental oxygenation as needed -Pulmonary hygiene -SPO2 monitoring GI: h/o Gastroparesis -24 hours JOON -PPI -N.p.o. while on insulin drip -As needed antiemetic : High anion gap metabolic acidosis, hyperchloremia -Trend BMP -Should resolve with DKA ID: SIRS, present on admission -Meets criteria with tachycardia, leukocytosis -f/u blood culture -Monitor WBC and temperature curve Endo: DKA, h/o IDDM and hypothyroidism -Currently on DKA protocol -Insulin drip -Accu-Cheks per protocol -BMP per protocol -Anion gap remains elevated -Will give 1 L LR bolus -Avoid hypoglycemia -Of note patient takes insulin lispro 10 units 3 times daily and Glargine 12 units subcu daily -04/15 hemoglobin A1c 14.1 Heme: Leukocytosis, thrombocytosis, h/o anemia -Resume home iron when able to take p.o. -Trend CBC -Transfuse hemoglobin less than 7 -Monitor for signs of bleeding -SCDs to BLE while in bed -Heparin subcu The high probability of a clinically significant, sudden or life threatening deterioration of the [endo] system(s) required my full and direct attention, intervention and personal management. The aggregate critical care time was [60] minutes. This time is in addition to time spent performing reported procedures but includes the following: [x] Data Review and interpretation [x] Patient assessment and monitoring of vital signs [x] Documentation [x] Medication orders and management Disposition Plan: icu Total Time Spent with Patient (Minutes): 60 History Interval history: This is is a 25-year-old female with insulin-dependent diabetes, hypertension, marijuana use, gastroparesis who presented to emergency department on 05/04 with complaints of severe diffuse abdominal pain and vomiting for several days. Lab work in the emergency department was consistent with DKA with blood glucose of 443, bicarb 10, anion gap 34. Patient was admitted to the hospital service to the ICU with consults to CCM for DKA. 05/05: Patient's anion gap remains elevated, will give LR bolus x1. Medical compliance strongly encouraged. Hospitalist Physical - Constitutional Vitals: Temp Pulse Resp BP Pulse Ox 98.4 F 118 H 21 128/87 100 05/05/21 12:00 05/05/21 15:00 05/05/21 14:31 05/05/21 15:00 05/05/21 15:00 General appearance: Present: no acute distress - EENT Eyes: Present: PERRL, EOM intact ENT: clear oral mucosa, dentition normal - Neck Neck: Present: normal ROM - Respiratory Respiratory effort: normal Respiratory: bilateral: CTA - Cardiovascular Rhythm: regular Heart Sounds: Present: S1 & S2. Absent: systolic murmur, diastolic murmur - Extremities Extremities: no ischemia, pulses intact, pulses symmetrical, No edema, normal te mperature, normal color, Full ROM Peripheral Pulses: within normal limits - Abdominal General gastrointestinal: soft, non-tender, non-distended, normal bowel sounds - Integumentary Integumentary: Present: warm, dry - Psychiatric Psychiatric: cooperative, agitated - Neurologic Neurologic: CNII-XII intact, no focal deficits, moves all extremities - Allied Health Allied health notes reviewed: nursing HEART Score - HEART Score Troponin: WBC 12.9 K/mm3 (4.5-11.0) H 05/05/21 04:26 RBC 4.32 M/mm3 (3.65-5.03) 05/05/21 04:26 Hgb 11.5 gm/dl (10.1-14.3) 05/05/21 04:26 Hct 36.1 % (30.3-42.9) 05/05/21 04:26 MCV 84 fl (79-97) 05/05/21 04:26 MCH 27 pg (28-32) L 05/05/21 04:26 MCHC 32 % (30-34) 05/05/21 04:26 RDW 14.8 % (13.2-15.2) 05/05/21 04:26 Plt Count 468 K/mm3 (140-440) H D 05/05/21 04:26 Lymph % (Auto) 10.7 % (13.4-35.0) L 05/05/21 04:26 [place] % (Auto) 3.4 % (0.0-7.3) 05/05/21 04:26 Eos % (Auto) 0.0 % (0.0-4.3) 05/05/21 04:26 Baso % (Auto) 0.3 % (0.0-1.8) 05/05/21 04:26 Lymph # (Auto) 1.4 K/mm3 (1.2-5.4) 05/05/21 04:26 [place] # (Auto) 0.4 K/mm3 (0.0-0.8) 05/05/21 04: Eos # (Auto) 0.0 K/mm3 (0.0-0.4) 05/05/21 04: Baso # (Auto) 0.0 K/mm3 (0.0-0.1) 05/05/21 04:26 Add Manual Diff Complete 05/04/21 20:47 Total Counted 100 05/04/21 20:47 Seg Neutrophils % 85.6 % (40.0-70.0) H 05/05/21 04:26 Seg Neuts % (Manual) 89.0 % (40.0-70.0) H 05/04/21 20:47 Band Neutrophils % 0 % 05/04/21 20:47 Lymphocytes % (Manual) 8.0 % (13.4-35.0) L 05/04/21 20:47 Reactive Lymphs % (Man) 0 % 05/04/21 20:47 Monocytes % (Manual) 3.0 % (0.0-7.3) 05/04/21 20:47 Eosinophils % (Manual) 0 % (0.0-4.3) 05/04/21 20:47 Basophils % (Manual) 0 % (0.0-1.8) 05/04/21 20:47 Metamyelocytes % 0 % 05/04/21 20:47 Myelocytes % 0 % 05/04/21 20:47 Promyelocytes % 0 % 05/04/21 20:47 Blast Cells % 0 % 05/04/21 20:47 Nucleated RBC % Not Reportable 05/04/21 20:47 Seg Neutrophils # 11.0 K/mm3 (1.8-7.7) H 05/05/21 04:26 Seg Neutrophils # Man 7.2 K/mm3 (1.8-7.7) 05/04/21 20:47 Band Neutrophils # 0.0 K/mm3 05/04/21 20:47 Lymphocytes # (Manual) 0.6 K/mm3 (1.2-5.4) L 05/04/21 20:47 Abs React Lymphs (Man) 0.0 K/mm3 05/04/21 20:47 Monocytes # (Manual) 0.2 K/mm3 (0.0-0.8) 05/04/21 20:47 Eosinophils # (Manual) 0.0 K/mm3 (0.0-0.4) 05/04/21 20:47 Basophils # (Manual) 0.0 K/mm3 (0.0-0.1) 05/04/21 20:47 Metamyelocytes # 0.0 K/mm3 05/04/21 20:47 Myelocytes # 0.0 K/mm3 05/04/21 20:47 Promyelocytes # 0.0 K/mm3 05/04/21 20:47 Blast Cells # 0.0 K/mm3 05/04/21 20:47 WBC Morphology Not Reportable 05/04/21 20:47 Hypersegmented Neuts Not Reportable 05/04/21 20:47 Hyposegmented Neuts Not Reportable 05/04/21 20:47 Hypogranular Neuts Not Reportable 05/04/21 20:47 Smudge Cells Not Reportable 05/04/21 20:47 Toxic Granulation Not Reportable 05/04/21 20:47 Toxic Vacuolation Not Reportable 05/04/21 20:47 Dohle Bodies Not Reportable 05/04/21 20:47 Pelger-Huet Anomaly Not Reportable 05/04/21 20:47 Tao Rods Not Reportable 05/04/21 20:47 Platelet Estimate Not Reportable 05/04/21 20:47 Clumped Platelets Not Reportable 05/04/21 20:47 Plt Clumps, EDTA Not Reportable 05/04/21 20:47 Large Platelets Not Reportable 05/04/21 20:47 Giant Platelets Not Reportable 05/04/21 20:47 Platelet Satelliting Not Reportable 05/04/21 20:47 Plt Morphology Comment Not Reportable 05/04/21 20:47 RBC Morphology Normal 05/04/21 20:47 Dimorphic RBCs Not Reportable 05/04/21 20:47 Polychromasia Not Reportable 05/04/21 20:47 Hypochromasia Not Reportable 05/04/21 20:47 Poikilocytosis Not Reportable 05/04/21 20:47 Anisocytosis Not Reportable 05/04/21 20:47 Microcytosis Not Reportable 05/04/21 20:47 Macrocytosis Not Reportable 05/04/21 20:47 Spherocytes Not Reportable 05/04/21 20:47 Pappenheimer Bodies Not Reportable 05/04/21 20:47 Sickle Cells Not Reportable 05/04/21 20:47 Target Cells Not Reportable 05/04/21 20:47 Tear Drop Cells Not Reportable 05/04/21 20:47 Ovalocytes Not Reportable 05/04/21 20:47 Helmet Cells Not Reportable 05/04/21 20:47 [place] Bodies Not Reportable 05/04/21 20:47 Fannin Rings Not Reportable 05/04/21 20:47 [place] Cells Not Reportable 05/04/21 20:47 Bite Cells Not Reportable 05/04/21 20:47 Crenated Cell Not Reportable 05/04/21 20:47 Elliptocytes Not Reportable 05/04/21 20:47 Acanthocytes (Spur) Not Reportable 05/04/21 20:47 Rouleaux Not Reportable 05/04/21 20:47 Hemoglobin C Crystals Not Reportable 05/04/21 20:47 Schistocytes Not Reportable 05/04/21 20:47 Malaria parasites Not Reportable 05/04/21 20:47 Jaswant Bodies Not Reportable 05/04/21 20:47 Hem Pathologist Commnt No 05/04/21 20:47 VBG pH 7.237 (7.320-7.420) L 05/04/21 22:58 Sodium 143 mmol/L (137-145) 05/05/21 07:47 Potassium 4.7 mmol/L (3.6-5.0) 05/05/21 07:47 Chloride 110.9 mmol/L (98-107) H 05/05/21 07:47 Carbon Dioxide 15 mmol/L (22-30) L 05/05/21 07:47 Anion Gap 22 mmol/L 05/05/21 07:47 BUN 22 mg/dL (7-17) H 05/05/21 07:47 Creatinine 0.6 mg/dL (0.6-1.2) 05/05/21 07:47 Estimated GFR > 60 ml/min 05/05/21 07:47 BUN/Creatinine Ratio 37 % 05/05/21 07:47 Glucose 236 mg/dL (65-100) H 05/05/21 07:47 POC Glucose 156 mg/dL (70-105) H 05/05/21 11:53 Calcium 9.8 mg/dL (8.4-10.2) 05/05/21 07:47 Phosphorus 5.20 mg/dL (2.5-4.5) H 05/04/21 23:11 Magnesium 2.20 mg/dL (1.7-2.3) 05/04/21 23:11 Total Bilirubin 0.30 mg/dL (0.1-1.2) 05/04/21 20:47 AST 23 units/L (5-40) 05/04/21 20:47 ALT 13 units/L (7-56) 05/04/21 20:47 Alkaline Phosphatase 128 units/L (35-129) 05/04/21 20:47 Total Protein 8.3 g/dL (6.3-8.2) H 05/04/21 20:47 Albumin 4.4 g/dL (3.9-5) 05/04/21 20:47 Albumin/Globulin Ratio 1.1 % 05/04/21 20:47 Lipase 12 units/L (13-60) L 05/04/21 20:47 HCG, Qual Negative (Negative) 05/04/21 20:47 Results - Labs CBC & Chem 7: 05/05/21 04:26 05/05/21 07:47 Labs: Laboratory Last Values WBC 12.9 K/mm3 (4.5-11.0) H 05/05/21 04:26 RBC 4.32 M/mm3 (3.65-5.03) 05/05/21 04:26 Hgb 11.5 gm/dl (10.1-14.3) 05/05/21 04:26 Hct 36.1 % (30.3-42.9) 05/05/21 04:26 MCV 84 fl (79-97) 05/05/21 04:26 MCH 27 pg (28-32) L 05/05/21 04:26 MCHC 32 % (30-34) 05/05/21 04:26 RDW 14.8 % (13.2-15.2) 05/05/21 04:26 Plt Count 468 K/mm3 (140-440) H D 05/05/21 04:26 Lymph % (Auto) 10.7 % (13.4-35.0) L 05/05/21 04:26 [place] % (Auto) 3.4 % (0.0-7.3) 05/05/21 04:26 Eos % (Auto) 0.0 % (0.0-4.3) 05/05/21 04:26 Baso % (Auto) 0.3 % (0.0-1.8) 05/05/21 04:26 Lymph # (Auto) 1.4 K/mm3 (1.2-5.4) 05/05/21 04:26 [place] # (Auto) 0.4 K/mm3 (0.0-0.8) 05/05/21 04:26 Eos # (Auto) 0.0 K/mm3 (0.0-0.4) 05/05/21 04:26 Baso # (Auto) 0.0 K/mm3 (0.0-0.1) 05/05/21 04:26 Add Manual Diff Complete 05/04/21 20:47 Total Counted 100 05/04/21 20:47 Seg Neutrophils % 85.6 % (40.0-70.0) H 05/05/21 04:26 Seg Neuts % (Manual) 89.0 % (40.0-70.0) H 05/04/21 20:47 Band Neutrophils % 0 % 05/04/21 20:47 Lymphocytes % (Manual) 8.0 % (13.4-35.0) L 05/04/21 20:47 Reactive Lymphs % (Man) 0 % 05/04/21 20:47 Monocytes % (Manual) 3.0 % (0.0-7.3) 05/04/21 20:47 Eosinophils % (Manual) 0 % (0.0-4.3) 05/04/21 20:47 Basophils % (Manual) 0 % (0.0-1.8) 05/04/21 20:47 Metamyelocytes % 0 % 05/04/21 20:47 Myelocytes % 0 % 05/04/21 20:47 Promyelocytes % 0 % 05/04/21 20:47 Blast Cells % 0 % 05/04/21 20:47 Nucleated RBC % Not Reportable 05/04/21 20:47 Seg Neutrophils # 11.0 K/mm3 (1.8-7.7) H 05/05/21 04:26 Seg Neutrophils # Man 7.2 K/mm3 (1.8-7.7) 05/04/21 20:47 Band Neutrophils # 0.0 K/mm3 05/04/21 20:47 Lymphocytes # (Manual) 0.6 K/mm3 (1.2-5.4) L 05/04/21 20:47 Abs React Lymphs (Man) 0.0 K/mm3 05/04/21 20:47 Monocytes # (Manual) 0.2 K/mm3 (0.0-0.8) 05/04/21 20:47 Eosinophils # (Manual) 0.0 K/mm3 (0.0-0.4) 05/04/21 20:47 Basophils # (Manual) 0.0 K/mm3 (0.0-0.1) 05/04/21 20:47 Metamyelocytes # 0.0 K/mm3 05/04/21 20:47 Myelocytes # 0.0 K/mm3 05/04/21 20:47 Promyelocytes # 0.0 K/mm3 05/04/21 20:47 Blast Cells # 0.0 K/mm3 05/04/21 20:47 WBC Morphology Not Reportable 05/04/21 20:47 Hypersegmented Neuts Not Reportable 05/04/21 20:47 Hyposegmented Neuts Not Reportable 05/04/21 20:47 Hypogranular Neuts Not Reportable 05/04/21 20:47 Smudge Cells Not Reportable 05/04/21 20:47 Toxic Granulation Not Reportable 05/04/21 20:47 Toxic Vacuolation Not Reportable 05/04/21 20:47 Dohle Bodies Not Reportable 03/26/22 20:47 Pelger-Huet Anomaly Not Reportable 05/04/21 20:47 Tao Rods Not Reportable 05/04/21 20:47 Platelet Estimate Not Reportable 05/04/21 20:47 Clumped Platelets Not Reportable 05/04/21 20:47 Plt Clumps, EDTA Not Reportable 05/04/21 20:47 Large Platelets Not Reportable 05/04/21 20:47 Giant Platelets Not Reportable 05/04/21 20:47 Platelet Satelliting Not Reportable 05/04/21 20:47 Plt Morphology Comment Not Reportable 05/04/21 20:47 RBC Morphology Normal 05/04/21 20:47 Dimorphic RBCs Not Reportable 05/04/21 20:47 Polychromasia Not Reportable 05/04/21 20:47 Hypochromasia Not Reportable 05/04/21 20:47 Poikilocytosis Not Reportable 05/04/21 20:47 Anisocytosis Not Reportable 05/04/21 20:47 Microcytosis Not Reportable 05/04/21 20:47 Macrocytosis Not Reportable 05/04/21 20:47 Spherocytes Not Reportable 05/04/21 20:47 Pappenheimer Bodies Not Reportable 05/04/21 20:47 Sickle Cells Not Reportable 05/04/21 20:47 Target Cells Not Reportable 05/04/21 20:47 Tear Drop Cells Not Reportable 05/04/21 20:47 Ovalocytes Not Reportable 05/04/21 20:47 Helmet Cells Not Reportable 05/04/21 20:47 [place] Bodies Not Reportable 05/04/21 20:47 Fannin Rings Not Reportable 05/04/21 20:47 Ang Cells Not Reportable 05/04/21 20:47 Bite Cells Not Reportable 05/04/21 20:47 Crenated Cell Not Reportable 05/04/21 20:47 Elliptocytes Not Reportable 05/04/21 20:47 Acanthocytes (Spur) Not Reportable 05/04/21 20:47 Rouleaux Not Reportable 05/04/21 20:47 Hemoglobin C Crystals Not Reportable 05/04/21 20:47 Schistocytes Not Reportable 05/04/21 20:47 Malaria parasites Not Reportable 05/04/21 20:47 Jaswant Bodies Not Reportable 05/04/21 20:47 Hem Pathologist Commnt No 05/04/21 20:47 VBG pH 7.237 (7.320-7.420) L 05/04/21 22:58 Sodium 143 mmol/L (137-145) 05/05/21 07:47 Potassium 4.7 mmol/L (3.6-5.0) 05/05/21 07:47 Chloride 110.9 mmol/L (98-107) H 05/05/21 07:47 Carbon Dioxide 15 mmol/L (22-30) L 05/05/21 07:47 Anion Gap 22 mmol/L 05/05/21 07:47 BUN 22 mg/dL (7-17) H 05/05/21 07:47 Creatinine 0.6 mg/dL (0.6-1.2) 05/05/21 07:47 Estimated GFR > 60 ml/min 05/05/21 07:47 BUN/Creatinine Ratio 37 % 05/05/21 07:47 Glucose 236 mg/dL (65-100) H 05/05/21 07:47 POC Glucose 156 mg/dL (70-105) H 05/05/21 11:53 Calcium 9.8 mg/dL (8.4-10.2) 05/05/21 07:47 Phosphorus 5.20 mg/dL (2.5-4.5) H 05/04/21 23:11 Magnesium 2.20 mg/dL (1.7-2.3) 05/04/21 23:11 Total Bilirubin 0.30 mg/dL (0.1-1.2) 05/04/21 20:47 AST 23 units/L (5-40) 05/04/21 20:47 ALT 13 units/L (7-56) 05/04/21 20:47 Alkaline Phosphatase 128 units/L (35-129) 05/04/21 20:47 Total Protein 8.3 g/dL (6.3-8.2) H 05/04/21 20:47 Albumin 4.4 g/dL (3.9-5) 05/04/21 20:47 Albumin/Globulin Ratio 1.1 % 05/04/21 20:47 Lipase 12 units/L (13-60) L 05/04/21 20:47 HCG, Qual Negative (Negative) 05/04/21 20:47 Active Medications - Current Medications Current Medications: Generic Name Dose Route Start Last Admin Trade Name Freq PRN Reason Stop Dose Admin Acetaminophen 650 mg 05/04/21 22:56 Acetaminophen 325 Mg Tab PO Q4H PRN Pain MILD(1-3)/Fever >100.5/[place] Dextrose 0 ml 05/04/21 23:09 Dextrose 10% *Hypoglycemia IV PRN PRN Hypoglycemia Famotidine 20 mg 05/05/21 10:00 05/05/21 10:44 Famotidine 20 Mg/2 Ml Inj IV 20 mg BID SILVANA Administration Ferrous Sulfate 325 mg 05/05/21 10:00 05/05/21 10:45 Ferrous Sulfate 325 Mg Tab PO Not Given QAM SILVANA Heparin Sodium (Porcine) 5,000 unit 05/05/21 10:00 05/05/21 10:44 Heparin 5,000 Unit/1 Ml Vial SUB-Q 5,000 unit Q12HR SILVANA Administration Hydralazine HCl 10 mg 05/05/21 05:49 05/05/21 05:56 Hydralazine 20 Mg/1 Ml Inj IV 10 mg Q6HR PRN Administration Hypertension Hydromorphone HCl 0.5 mg 05/04/21 22:56 05/05/21 14:49 Hydromorphone 1 Mg/1 Ml Inj IV 0.5 mg Q3H PRN Administration Pain , Severe (7-10) Insulin Human Regular 100 100 mls @ 1 mls/hr 05/04/21 23:00 05/05/21 15:00 units/ Sodium Chloride IV 1 units/hr TITR SILVANA 1 mls/hr Titration Protocol 1 UNITS/HR Sodium Chloride 1,000 mls @ 150 mls/hr 05/04/21 23:00 05/05/21 01:51 Nacl 0.45% 1000 Ml IV 150 mls/hr DIRECT SILVANA Administration Potassium Chloride/Dextrose/Sod Cl 20 meq in 1,000 mls @ 125 mls/hr 05/04/21 23:00 05/05/21 14:22 D5w/0.45% Nacl/Kcl 20 Meq IV 125 mls/hr DIRECT SILVANA Administration Labetalol HCl 10 mg 05/05/21 07:24 05/05/21 14:21 Labetalol 20 Mg/4 Ml Inj IV 10 mg Q4HR PRN Administration Hypertension Levothyroxine Sodium 50 mcg 05/05/21 06:00 05/05/21 05:56 Levothyroxine 50 Mcg Tab PO Not Given 0600 [facility] Lisinopril 10 mg 05/05/21 10:00 05/05/21 10:45 Lisinopril 10 Mg Tab PO Not Given QDAY SILVANA Morphine Sulfate 2 mg 05/04/21 22:56 05/05/21 12:51 Morphine 2 Mg/1 Ml Inj IV 2 mg Q4H PRN Administration Pain, Moderate (4-6) Ondansetron HCl 4 mg 05/04/21 22:56 05/05/21 14:21 Ondansetron 4 Mg/2 Ml Inj IV 4 mg Q8H PRN Administration Nausea And Vomiting Sodium Chloride 10 ml 05/05/21 10:00 05/05/21 10:45 Sodium Chloride 0.9% 10 Ml Flush Syringe IV 10 ml BID SILVANA Administration Sodium Chloride 10 ml 05/04/21 22:56 Sodium Chloride 0.9% 10 Ml Flush Syringe IV PRN PRN LINE FLUSH Nutrition/Malnutrition Assess - Dietary Evaluation Nutrition/Malnutrition Findings: Nutrition Notes Start: 05/05/21 12:21 Freq: Status: Active Protocol: Document 05/05/21 12:21 QAMAR (Rec: 05/05/21 12:45 QAMAR [id number]) Nutrition Notes Need for Assessment generated from: MD Order,summer counselor,Education Initial or Follow up Assessment Current Diagnosis Diabetes,Hypertension Other Pertinent Diagnosis DKA, Gastroparesis, N/V/ Abdominal Pain. Current Diet NPO (since 05/04 22:57). Labs/Tests 05/05: Cl 110.9, CO2 15, BUN 22, Glu 236. Pertinent Medications 05/05: Insulin, Levothyroxine, KCl 20 mEq, others nutritionally unremarkable. 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 Weight Status Underweight Subjective/Other Information RD consult for skin risk assessment, nutrition education and Low BMI assessments. Pt currently on NPO. Pt is lethargic, but arousable , and presents N/V/Abdominal Pain in scale 8/10, according to RN notes. Pt shows no signs of concern for skin risk at the time, according to Physical Assessment History notes. Pt's Low BMI seems to correspond to a natural body composition, and not related to a sudden loss of body weight nor chronic malnutrition, since none were mentioned in the Physical Assessment History or the Progress notes. Pt still in critical condition , not a candidate for Nutrition Education at the time, will assess feasibility on F/U. Percent of energy/protein needs met: Pt currently on NPO. Burn Absent Trauma Absent GI Symptoms Nausea,Vomiting,Other Food Allergy No Skin Integrity/Comment Assessment WNL. Current % PO Other Minimum of two criteria No #1 Nutrition Diagnosis No nutrition diagnosis at this time Comments: Will assess PO intake of meals at F/U if feasible. Is patient on ventilator? No Is Patient Ambulatory and/or Out of Bed Yes REE-([facility]-ambulatory/OOB) [ 1557.400 [id number]] Calculation Used for Recommendations [facility] Additional Notes Protein: 0.8-1 g/Kg IBW; 44-55 g/day. Fluids: 1 ml/Kcal, or as per MD. Nutrition Intervention Follow-Up By: 05/07/21 Additional Comments Nutrition education will be provided on F/U, if feasible. When pertinent, start monitoring food tolerance, %PO intake of meals, and BM.
[2021-05-05 17:35] LABS: Blood Urea Nitrogen 18 mg/dL (7-17); Calcium 8.9 mg/dL (8.4-10.2); Hemolysis Index 45
[2021-05-05 17:38] LABS: BUN/Creatinine Ratio 45
[2021-05-05] MEDS ORDERED: INSULIN GLARGINE 100 UNITS/ML SUB-Q SCH (22:00)
[2021-05-05] MEDS: INSULIN LISPRO 100 UNIT/ML SUB-Q SCH ×2 (22:01→22:02)
[2021-05-06] MEDS: INSULIN LISPRO 100 UNIT/ML SUB-Q SCH ×3 (02:28→11:17)
[2021-05-06 04:36] LABS: Hematocrit 30.6 % (30.3-42.9); Hemoglobin 9.9 gm/dl (10.1-14.3); Mean Corpuscular HGB Conc 32 % (30-34); Mean Corpuscular Volume 84 fl (79-97); Platelet Count 376 K/mm3 (140-440); Red Blood Count 3.66 M/mm3 (3.65-5.03); Red Cell Distribution Width 14.8 % (13.2-15.2)
[2021-05-06 05:12] LABS: Blood Urea Nitrogen 10 mg/dL (7-17); Calcium 8.8 mg/dL (8.4-10.2); Hemolysis Index 94
[2021-05-06 05:18] LABS: BUN/Creatinine Ratio 33
[2021-05-06] MEDS: LEVOTHYROXINE 50 MCG TAB PO SCH (05:41)
[2021-05-06] MEDS: HYDROmorphone 1 MG/1 ML INJ IV PRN (06:40)
[2021-05-06] MEDS: ONDANSETRON 4 MG/2 ML INJ IV PRN (06:42)
[2021-05-06] MEDS ORDERED: FAMOTIDINE 20 MG TAB PO SCH (10:00)
[2021-05-06 11:02] VITALS: BP 162/109
[2021-05-06] MEDS: LISINOPRIL 10 MG TAB PO SCH (11:19)
[2021-05-06] MEDS: FERROUS SULFATE 325 MG TAB PO SCH (11:21)
[2021-05-06] MEDS: HEPARIN 5,000 UNIT/1 ML VIAL SUB-Q SCH (11:21)
[2021-05-06] MEDS ORDERED: METOCLOPRAMIDE 10 MG TAB PO STA (12:08)
--- NOTE | 2021-05-06 12:10 | Discharge Summary ---
Providers - Providers Date of Admission: 05/04/21 22:56 Date of discharge: 05/06/21 Attending physician: LORE BAZZI MD 05/04/21 22:56 Consult to Dietitian/Nutrition [CONS] Routine Physician Instructions: Reason For Exam: DKA Reason for Consult: Nutrition Recommendations Reason for Consult: Diet education Consult to Physician [CONS] Routine Comment: Consulting Provider: SERINA FELDMAN Physician Instructions: Reason For Exam: dka 05/05/21 04:20 Consult to Dietitian/Nutrition [CONS] Routine Physician Instructions: Reason For Exam: Reason for Consult: Diet education Primary care physician: STEW SMITH Hospitalization Reason for admission: DKA Condition: Stable Hospital course: This is a a 25-year-old female with insulin-dependent diabetes mellitus, gastroparesis admitted with DKA History Interval history: This is is a 25-year-old female with insulin-dependent diabetes, hypertension, marijuana use, gastroparesis who presented to emergency department on 05/04 with complaints of severe diffuse abdominal pain and vomiting for several days. Lab work in the emergency department was consistent with DKA with blood glucose of 443, bicarb 10, anion gap 34. Patient was admitted to the hospital service to the ICU with consults to CCM for DKA. 05/05: Patient's anion gap remains elevated, will give LR bolus x1. Medical compliance strongly encouraged. 05/06: Transitioned to SubQ regimen overnight, tolerating PO intake. Patient is stable for discharge. Assessment and Plan Neuro: ? Noncompliant -Avoid delirium -Reorientation as needed -Maintain sleep-wake cycle -As needed analgesia -Stressed medical compliance -Of note this is patient's second admission this month for DKA -Patient states that she is compliant with her medical treatment plan however multiple readmissions for DKA Cardiac: Sinus tachycardia, h/o HTN -As needed hydralazine -Blood pressure monitoring per protocol -Home medications include Zestril Respiratory: NAD -Supplemental oxygenation as needed -Pulmonary hygiene -SPO2 monitoring GI: h/o Gastroparesis -24 hours JOON -PPI -N.p.o. while on insulin drip -As needed antiemetic : High anion gap metabolic acidosis, hyperchloremia -Trend BMP -Should resolve with DKA ID: SIRS, present on admission -Meets criteria with tachycardia, leukocytosis -f/u blood culture -Monitor WBC and temperature curve Endo: DKA, h/o IDDM and hypothyroidism -s/p DKA protocol -Accu-Cheks per protocol -BMP per protocol -Avoid hypoglycemia -Of note patient takes insulin lispro 10 units 3 times daily and Glargine 12 units subcu daily -04/15 hemoglobin A1c 14.1 Heme: Leukocytosis, thrombocytosis, h/o anemia -Resume home iron when able to take p.o. -Trend CBC -Transfuse hemoglobin less than 7 -Monitor for signs of bleeding -SCDs to BLE while in bed -Heparin subcu Disposition: HOME / SELF CARE / HOMELESS Final Discharge Diagnosis (Prints w/discharge instructions): Uncontrolled DM Time spent for discharge: 35 Core Measure Documentation - Palliative Care Palliative Care/ Comfort Measures: Not Applicable - Core Measures Any of the following diagnoses?: none Exam - Constitutional Vitals: Temp Pulse Resp BP Pulse Ox 98.4 F 126 H 16 162/109 100 05/06/21 08:00 05/06/21 11:19 05/06/21 11:00 05/06/21 11:00 05/06/21 11:00 General appearance: Present: no acute distress - EENT Eyes: Present: PERRL, EOM intact ENT: hearing intact - Neck Neck: Present: normal ROM - Respiratory Respiratory effort: normal Respiratory: bilateral: CTA - Cardiovascular Rhythm: regular Heart Sounds: Present: S1 & S2 - Extremities Extremities: no ischemia, pulses intact, pulses symmetrical Peripheral Pulses: within normal limits - Abdominal General gastrointestinal: Present: soft, non-distended, normal bowel sounds Female genitourinary: Present: deferred - Rectal Rectal Exam: deferred - Integumentary Integumentary: Present: clear, warm, dry - Musculoskeletal Musculoskeletal: strength equal bilaterally - Psychiatric Psychiatric: appropriate mood/affect, cooperative - Neurologic Neurologic: CNII-XII intact, moves all extremities - Allied Health Allied health notes reviewed: nursing Plan Activity: no restrictions Diet: diabetic, low carbohydrate Wound: open to air Care Plan Goals: Education provided on medications compliance and healthy and well balance diet. - Also follow up with PCP within a week Follow up with: STEW SMITH MD [Primary Care Provider] - 3-5 Days Prescriptions: Insulin Glargine,Hum.rec.anlog [Basaglar Kwikpen U-100] 12 unit SQ QDAY 30 Days
[2021-05-06] MEDS ORDERED: INSULIN GLARGINE 100 UNITS/ML SUB-Q SCH (22:00)
== END 2021-05-06 12:31 | disposition home or self-care (01) | DRG 638 ==
LOC: ED 16:06 → CC1 22:56
PROVIDERS: ADMIT Hospitalist; ATTEND Internal Medicine
DX: E11.10 Type 2 diabetes mellitus with ketoacidosis without coma (principal); R65.10 Systemic inflammatory response syndrome (SIRS) of non-infectious origin without acute organ dysfunction; K31.84 Gastroparesis; R11.2 Nausea with vomiting, unspecified; I10 Essential (primary) hypertension; E11.43 Type 2 diabetes mellitus with diabetic autonomic (poly)neuropathy; F12.10 Cannabis abuse, uncomplicated; E03.9 Hypothyroidism, unspecified; D75.839 Thrombocytosis, unspecified; R00.0 Tachycardia, unspecified; E87.8 Other disorders of electrolyte and fluid balance, not elsewhere classified
CPT/HCPCS: 36415; 80048; 80053; 82805; 82962; 83690; 83735; 84100; 84703; 85007; 85025; 85027; G0378; J3480; J3490; Q0162; Q9967; J0360; J1170; J1200; J1630; J1644; J1815; J2270; J2405; J2765; J7030; J7120

== ENCOUNTER 2021-06-24 01:19 | Inpatient (IN) | payer MEDICAID ==
[2021-06-24] MEDS ORDERED: ONDANSETRON 4 MG/2 ML INJ IV ONE (01:46)
[2021-06-24] MEDS ORDERED: MORPHINE 4 MG/1 ML INJ IV ONE (01:46)
[2021-06-24 03:13] LABS: Basophils % (Auto) 0.4 % (0.0-1.8); Eosinophils % (Auto) 0.1 % (0.0-4.3); Hematocrit 36.4 % (30.3-42.9); Hemoglobin 11.7 gm/dl (10.1-14.3); Lymphocytes # (Auto) 0.8 K/mm3 (1.2-5.4); Lymphocytes % (Auto) 10.9 % (13.4-35.0); Mean Corpuscular HGB Conc 32 % (30-34); Mean Corpuscular Volume 83 fl (79-97); Monocytes # (Auto) 0.2 K/mm3 (0.0-0.8); Monocytes % (Auto) 2.4 % (0.0-7.3); Platelet Count 391 K/mm3 (140-440); Red Cell Distribution Width 15.5 % (13.2-15.2)
[2021-06-24 03:27] LABS: Alanine Aminotransferase 14 units/L (7-56); Albumin 4.1 g/dL (3.9-5); Blood Urea Nitrogen 14 mg/dL (7-17); Calcium 9.4 mg/dL (8.4-10.2); Hemolysis Index 41
[2021-06-24 03:40] LABS: BUN/Creatinine Ratio 28
[2021-06-24] MEDS ORDERED: SODIUM CHLORIDE 0.9% 1000 ML 1,000 ML IV ONE ×3 (04:20→06:59)
[2021-06-24] MEDS ORDERED: INSULIN REGULAR, HUMAN 100 UNITS/1 ML IV ONE (04:21)
--- NOTE | 2021-06-24 04:22 | Emergency Department Report ---
ED General Adult HPI - General Chief complaint: Hyperglycemia Stated complaint: N/V AND PAIN Time Seen by Provider: 06/24/21 01:45 Source: patient, EMS Mode of arrival: Stretcher Limitations: No Limitations - History of Present Illness Initial comments: Patient presents with complaints of middle upper abdominal pain, sharp, non radiating, 10/10, not worsened or relieved by anything. Endorses nausea, non bloody, non bilious vomiting. Last BM was today and formed. Endorses flatulence. Denies dysuria, frequency, urgency, vaginal bleeding, discharge. Severity scale (0 -10): 10 - Related Data Home Medications Medication Instructions Recorded Confirmed Last Taken Ferrous Sulfate [Iron 325 MG] 325 mg PO QAM 04/16/21 06/04/21 06/03/21 Previous Rx's Medication Instructions Recorded Last Taken Type DOXYCYCLINE Hyclate [Vibramycin 100 mg PO Q12HR #14 capsule 06/06/21 Unknown Rx CAP] Insulin Glargine,Hum.rec.anlog 12 unit SQ QDAY 30 Days 06/06/21 Unknown Rx [Basaglar Kwikpen U-100] Insulin Lispro [Admelog Solostar] 10 unit SQ TIDAC 30 Days 06/06/21 Unknown Rx Levothyroxine [Synthroid] 50 mcg PO 0600 #30 tablet 06/06/21 Unknown Rx lisinopriL [Zestril TAB] 10 mg PO QDAY #30 tablet 06/06/21 Unknown Rx metroNIDAZOLE [Flagyl TAB] 500 mg PO Q12HR #2 06/06/21 Unknown Rx Allergies Allergy/AdvReac Type Severity Reaction Status Date / Time animal dander Allergy Unknown Verified 04/14/21 19:47 ED Review of Systems ROS: Stated complaint: N/V AND PAIN Other details as noted in HPI Comment: All other systems reviewed and negative Constitutional: denies: chills, fever ED Past Medical Hx - Past Medical History Previous Medical History?: Yes Hx Hypertension: Yes Hx Congestive Heart Failure: No Hx Diabetes: Yes Hx Deep Vein Thrombosis: No Hx Renal Disease: No Hx Sickle Cell Disease: No Hx Seizures: No Hx Asthma: No Hx COPD: No Hx HIV: No Additional medical history: Gastroparesis - Surgical History Past Surgical History?: Yes Additional Surgical History: 2017. wisdom teeth - Social History Smoking Status: Never Smoker Substance Use Type: None - Medications Home Medications: Home Medications Medication Instructions Recorded Confirmed Last Taken Type Ferrous Sulfate [Iron 325 MG] 325 mg PO QAM 04/16/21 06/04/21 06/03/21 History DOXYCYCLINE Hyclate [Vibramycin 100 mg PO Q12HR #14 capsule 06/06/21 Unknown Rx CAP] Insulin Glargine,Hum.rec.anlog 12 unit SQ QDAY 30 Days 06/06/21 Unknown Rx [Basaglar Kwikpen U-100] Insulin Lispro [Admelog Solostar] 10 unit SQ TIDAC 30 Days 06/06/21 Unknown Rx Levothyroxine [Synthroid] 50 mcg PO 0600 #30 tablet 06/06/21 Unknown Rx lisinopriL [Zestril TAB] 10 mg PO QDAY #30 tablet 06/06/21 Unknown Rx metroNIDAZOLE [Flagyl TAB] 500 mg PO Q12HR #2 06/06/21 Unknown Rx ED Physical Exam - General Limitations: No Limitations General appearance: alert, other (writhing in pain) - Head Head exam: Present: atraumatic, normocephalic - Eye Eye exam: Present: PERRL, EOMI - ENT ENT exam: Present: mucous membranes moist, other (airway patent) - Neck Neck exam: Present: other (supple; no JVD) - Respiratory Respiratory exam: Present: other (good air entry, nml I:E, CTAB, no use of KEATON) - Cardiovascular Cardiovascular Exam: Present: regular rate. Absent: rubs, gallop - GI/Abdominal GI/Abdominal exam: Present: other (soft; tender to palpation diffusely; no rebound tenderness or involuntary guarding) - Extremities Exam Extremities exam: Present: full ROM. Absent: tenderness - Back Exam Back exam: Present: full ROM. Absent: CVA tenderness (R), CVA tenderness (L) - Neurological Exam Neurological exam: Present: alert, oriented X3, CN II-XII intact. Absent: motor sensory deficit - Skin Skin exam: Present: warm, normal color ED Course Vital Signs 06/24/21 01:30 Temperature 98 F Pulse Rate 120 H Respiratory 20 Rate Blood Pressure 116/78 O2 Sat by Pulse 100 Oximetry ED Medical Decision Making - Lab Data Result diagrams: 06/24/21 03:00 06/24/21 03:00 Laboratory Tests 05/06/24/21 06/24/21 03:00 03:00 03:00 WBC 7.6 RBC 4.40 Hgb 11.7 Hct 36.4 MCV 83 MCH 27 L MCHC 32 RDW 15.5 H Plt Count 391 Lymph % (Auto) 10.9 L [place] % (Auto) 2.4 Eos % (Auto) 0.1 Baso % (Auto) 0.4 Lymph # (Auto) 0.8 L [place] # (Auto) 0.2 Eos # (Auto) 0.0 Baso # (Auto) 0.0 Seg Neutrophils % 86.2 H Seg Neutrophils # 6.5 Sodium 135 L Potassium 4.5 Chloride 94.9 L Carbon Dioxide 11 L Anion Gap 34 BUN 14 Creatinine 0.5 L Estimated GFR > 60 BUN/Creatinine Ratio 28 Glucose 524 H* POC Glucose Calcium 9.4 Total Bilirubin 0.40 AST 20 ALT 14 Alkaline Phosphatase 110 Total Protein 6.9 Albumin 4.1 Albumin/Globulin Ratio 1.5 Lipase 11 L HCG, Qual Negative 06/24/21 03:15 WBC RBC Hgb Hct MCV MCH MCHC RDW Plt Count Lymph % (Auto) [place] % (Auto) Eos % (Auto) Baso % (Auto) Lymph # (Auto) [place] # (Auto) Eos # (Auto) Baso # (Auto) Seg Neutrophils % Seg Neutrophils # Sodium Potassium Chloride Carbon Dioxide Anion Gap BUN Creatinine Estimated GFR BUN/Creatinine Ratio Glucose POC Glucose 479 H Calcium Total Bilirubin AST ALT Alkaline Phosphatase Total Protein Albumin Albumin/Globulin Ratio Lipase HCG, Qual CT abd/pelvis: pending - Medical Decision Making Received insulin 5 units IV x 1, NS 1L bouls IV x 1 then gtt Critical care time in (mins) excluding proc time.: 40 Critical care attestation.: If time is entered above; I have spent that time in minutes in the direct care of this critically ill patient, excluding procedure time. ED Disposition Clinical Impression: DKA (diabetic ketoacidoses), Abdominal pain Disposition: 30 STILL A PATIENT Is pt being admited?: No Does the pt Need Aspirin: No Condition: Stable Instructions: Diabetic Ketoacidosis (ED) Time of Disposition: 06:41 (Patient care transferred to Dr. Segal (oncoming ER doc). Sign out was given by me to him. )
[2021-06-24] MEDS ORDERED: METOCLOPRAMIDE 10 MG/2 ML INJ IV ONE (05:13)
[2021-06-24] MEDS ORDERED: DEXTROSE 50% IN WATER (25GM) 50 ML SYRINGE IV PRN (06:16)
[2021-06-24] MEDS ORDERED: LORazepam 2 MG/ML VIAL IV ONE (06:59)
[2021-06-24 07:17] LABS: Blood Urea Nitrogen 16 mg/dL (7-17); Hemolysis Index 35
[2021-06-24 07:26] LABS: BUN/Creatinine Ratio 32
[2021-06-24] MEDS: INSULIN REGULAR, HUMAN 100 UNITS in SODIUM CHLORIDE 0.9% 99 ML IV SCH ×2 (08:03→12:11)
--- NOTE | 2021-06-24 09:07 | Cat Scan Report ---
CT ABDOMEN AND PELVIS WITH CONTRAST HISTORY: abd pain. Acute generalized abdominal pain COMPARISON: CT abdomen/pelvis from 12/23/2020 TECHNIQUE: CT images of the abdomen and pelvis were obtained following administration of intravenous contrast. All CT scans at this location are performed using CT dose reduction for ALARA by means of automated exposure control. CONTRAST: 85 ml of intravenous contrast administered. FINDINGS: Lungs/bones: Lung bases are clear. No acute osseous abnormality identified. Abdomen/pelvis: The liver, gallbladder, spleen, pancreas, adrenals, kidneys, and proximal GI tract s how no acute abnormality. Urinary bladder is distended but otherwise there is no wall thickening, stone disease, or mass. There is intermediate attenuation centrally within the uterus which is somewhat rounded. This could repres ent an expanded endometrial complex with blood products or underlying mass. Reproductive organs are o therwise unremarkable. No gross pelvic free fluid identified. The appendix is normal. IMPRESSION: 1. Distended urinary bladder of uncertain significance with no underlying mass or stone disease. 2. Uterine findings as above. Correlate with stage in menstrual cycle and consider follow-up ultrasou nd for further evaluation. Signer Name: Alex Morris MD Signed: 06/24/2021 9:03 AM Workstation Name: [id number]
[2021-06-24] MEDS ORDERED: IBUPROFEN 600 MG TAB PO PRN (10:18)
[2021-06-24 10:37] LABS: Blood Urea Nitrogen 14 mg/dL (7-17); Calcium 8.7 mg/dL (8.4-10.2); Hemolysis Index 16
[2021-06-24 10:38] LABS: BUN/Creatinine Ratio 23
--- NOTE | 2021-06-24 10:41 | History and Physical Report ---
History of Present Illness Date of examination: 06/24/21 Date of admission: 06/24/21 10:18 Chief complaint: Abdominal pain, nausea/vomiting History of present illness: 26-year-old female with history of hypertension, uncontrolled insulin-dependent diabetes and gastroparesis who presented to the emergency department with complaint of 3 days of nausea, vomiting and abdominal pain. She has been admitted several times with similar complaint. She denies headache, visual changes, chest pain, shortness of breath, hematemesis, and blood in vomitus. She denies fevers, chills, night sweats, vaginal discharge and dyspareunia. She takes 15 units of long-acting insulin in the morning and sliding scale with meals. She reports her last dose yesterday. Labs were significant for glucose 524, bicarbonate 11, phosphorus of 2.3. CT of the abdomen/pelvis showed attenuation within the uterus but did not show any other acute abdominal issues. She was admitted for management of DKA and gastroparesis flare. Past History Past Medical History: diabetes, hypertension, other (gastroparesis) Past Surgical History: No surgical history Social history: other (occasional marijuana use) Family history: no significant family history Medications and Allergies Allergies Allergy/AdvReac Type Severity Reaction Status Date / Time animal dander Allergy Unknown Verified 04/14/21 19:47 Home Medications Medication Instructions Recorded Confirmed Last Taken Type Ferrous Sulfate [Iron 325 MG] 325 mg PO QAM 04/16/21 06/04/21 06/03/21 History DOXYCYCLINE Hyclate [Vibramycin 100 mg PO Q12HR #14 capsule 06/06/21 Unknown Rx CAP] Insulin Glargine,Hum.rec.anlog 12 unit SQ QDAY 30 Days 06/06/21 Unknown Rx [Basaglar Kwikpen U-100] Insulin Lispro [Admelog Solostar] 10 unit SQ TIDAC 30 Days 06/06/21 Unknown Rx Levothyroxine [Synthroid] 50 mcg PO 0600 #30 tablet 06/06/21 Unknown Rx lisinopriL [Zestril TAB] 10 mg PO QDAY #30 tablet 06/06/21 Unknown Rx metroNIDAZOLE [Flagyl TAB] 500 mg PO Q12HR #2 06/06/21 Unknown Rx Active Meds: Active Medications Dextrose (Dextrose 50% In Water (25gm) 50 Ml Syringe) 0 ml IV Q30MIN PRN; Protocol PRN Reason: Hypoglycemia Sodium Chloride (Nacl 0.9% 1000 Ml) 1,000 mls @ 150 mls/hr IV ONCE ONE Stop: 06/24/21 10:59 Last Admin: 06/24/21 05:00 Dose: 150 mls/hr Insulin Human Regular 100 (units/ Sodium Chloride) 100 mls @ 1 mls/hr IV TITR SILVANA; Protocol Last Titration: 06/24/21 10:29 Dose: 2 units/hr, 2 mls/hr Ibuprofen (Ibuprofen 600 Mg Tab) 600 mg PO Q6H PRN PRN Reason: Pain, Mild (1-3) Morphine Sulfate (Morphine 2 Mg/1 Ml Inj) 2 mg IV Q4H PRN PRN Reason: Pain, Moderate (4-6) Sodium Chloride (Sodium Chloride 0.9% 10 Ml Flush Syringe) 10 ml IV BID ISLVANA Sodium Chloride (Sodium Chloride 0.9% 10 Ml Flush Syringe) 10 ml IV PRN PRN PRN Reason: LINE FLUSH Review of Systems Constitutional: anorexia, no weight loss, no weight gain, no fever, no chills, no sweats, no fatigue, no poor appetite Ears, nose, mouth and throat: deferred Breasts: deferred Cardiovascular: no chest pain, no palpitations, no rapid/irregular heart beat, no syncope, no lightheadedness Respiratory: no cough, no hemoptysis, no dyspnea on exertion, no wheezing Gastrointestinal: abdominal pain, nausea, vomiting, early satiety, no diarrhea, no change in bowel habits, no hematemesis Genitourinary Female: no dyspareunia, no menorrhagia, no vaginal itching, no vaginal discharge, no vaginal odor, no abnormal vaginal bleeding Menstruation: currently menstrual Musculoskeletal: no shooting arm pain, no arm numbness/tingling, no leg numbness/tingling, no morning stiffness, no myalgias Integumentary: deferred Neurological: no head injury, no parathesias, no numbness, no tingling, no motor disturbance Endocrine: excessive thirst, polydipsia, polyuria, no cold intolerance, no heat intolerance, no polyphagia Exam - Physical Exam Narrative exam: GENERAL: Thin woman. In no acute distress. HEENT: Poor dentition. NECK: Supple. CHEST/LUNGS: CTAB on room air HEART/CARDIOVASCULAR: Tachycardic. No murmur, rubs or gallops appreciated. ABDOMEN: +BS. NT/ND. SKIN: Multiple tattoos. NEURO: No focal motor deficit. Follows all commands. MUSCULOSKELETAL: No joint effusion EXTREMITIES: No cyanosis, clubbing or edema. PSYCH: Cooperative. - Constitutional Vitals: Temp Pulse Resp BP Pulse Ox 98 F 134 H 15 145/95 100 06/24/21 01:30 06/24/21 08:42 06/24/21 08:42 06/24/21 08:42 06/24/21 08:42 Results - Labs CBC & Chem 7: 06/24/21 03:00 06/24/21 12:30 Labs: Laboratory Last Values WBC 7.6 K/mm3 (4.5-11.0) 06/24/21 03:00 RBC 4.40 M/mm3 (3.65-5.03) 06/24/21 03:00 Hgb 11.7 gm/dl (10.1-14.3) 06/24/21 03:00 Hct 36.4 % (30.3-42.9) 06/24/21 03:00 MCV 83 fl (79-97) 06/24/21 03:00 MCH 27 pg (28-32) L 06/24/21 03:00 MCHC 32 % (30-34) 06/24/21 03:00 RDW 15.5 % (13.2-15.2) H 06/24/21 03:00 Plt Count 391 K/mm3 (140-440) 06/24/21 03:00 Lymph % (Auto) 10.9 % (13.4-35.0) L 06/24/21 03:00 [place] % (Auto) 2.4 % (0.0-7.3) 06/24/21 03:00 Eos % (Auto) 0.1 % (0.0-4.3) 06/24/21 03:00 Baso % (Auto) 0.4 % (0.0-1.8) 06/24/21 03:00 Lymph # (Auto) 0.8 K/mm3 (1.2-5.4) L 06/24/21 03:00 [place] # (Auto) 0.2 K/mm3 (0.0-0.8) 06/24/21 03:00 Eos # (Auto) 0.0 K/mm3 (0.0-0.4) 06/24/21 03:00 Baso # (Auto) 0.0 K/mm3 (0.0-0.1) 06/24/21 03:00 Seg Neutrophils % 86.2 % (40.0-70.0) H 06/24/21 03:00 Seg Neutrophils # 6.5 K/mm3 (1.8-7.7) 06/24/21 03:00 Sodium 142 mmol/L (137-145) 06/24/21 10:01 Potassium 4.0 mmol/L (3.6-5.0) 06/24/21 10:01 Chloride 109.1 mmol/L (98-107) H 06/24/21 10:01 Carbon Dioxide 12 mmol/L (22-30) L 06/24/21 10:01 Anion Gap 25 mmol/L 06/24/21 10:01 BUN 14 mg/dL (7-17) 06/24/21 10:01 Creatinine 0.6 mg/dL (0.6-1.2) 06/24/21 10:01 Estimated GFR > 60 ml/min 06/24/21 10:01 BUN/Creatinine Ratio 23 % 06/24/21 10:01 Glucose 233 mg/dL (65-100) H 06/24/21 10:01 POC Glucose 331 mg/dL (70-105) H 06/24/21 08:02 Calcium 8.7 mg/dL (8.4-10.2) 06/24/21 10:01 Phosphorus 2.30 mg/dL (2.5-4.5) L 06/24/21 06:43 Magnesium 2.20 mg/dL (1.7-2.3) 06/24/21 06:43 Total Bilirubin 0.40 mg/dL (0.1-1.2) 06/24/21 03:00 AST 20 units/L (5-40) 06/24/21 03:00 ALT 14 units/L (7-56) 06/24/21 03:00 Alkaline Phosphatase 110 units/L (35-129) 06/24/21 03:00 Total Protein 6.9 g/dL (6.3-8.2) 06/24/21 03:00 Albumin 4.1 g/dL (3.9-5) 06/24/21 03:00 Albumin/Globulin Ratio 1.5 % 06/24/21 03:00 Lipase 11 units/L (13-60) L 06/24/21 03:00 HCG, Qual Negative (Negative) 06/24/21 03:00 Assessment and Plan Assessment and plan: #Diabetic Ketoacidosis #Anion gap metabolic acidosis #Poorly controlled insulin-dependent type 2 diabetes mellitus complicated by gastroparesis #Abdominal pain Hemoglobin A1c 14.1 in April 2021, no need to repeat at this time -patient prescribed glargine 12U qday and lispro 10U with meals Repeated episodes of DKA secondary to nonadherence to medications/recommendations -continue insulin gtt, until AG is less than 13 (current AG 25) -continue IVFs, q6hr BMP Continue reglan q6h #Hypertension -BP likely elevated due to pain -will restart lisinopril at home dose -PRN labetalol -SBP goal <160 and DBP goal <90 while inpatient #Hypophosphatemia -phosphorus 2.30 -will give 30mml of NaPhos #Hypothyroidism continue synthroid at home dose #Advanced care planning -Disease education conducted, care plan discussed, diagnoses discussed, prognosis discussed, and patient acknowledges understanding with care plan -Time: +30 min Advance Directives: No VTE prophylaxis?: Chemical Plan of care discussed with patient/family: Yes
[2021-06-24] MEDS: D5W/0.45% NACL/KCL 20 MEQ 20 MEQ/1,000 ML BAG IV SCH (11:27)
[2021-06-24] MEDS: METOCLOPRAMIDE 10 MG/2 ML INJ IV SCH ×3 (12:46→23:23)
[2021-06-24] MEDS: MORPHINE 2 MG/1 ML INJ IV PRN ×3 (12:46→23:22)
--- NOTE | 2021-06-24 13:05 | Consultation ---
History of Present Illness - Reason for Consult Consult date: 06/24/21 DKA Requesting physician: DANILO VELIZ - History of Present Illness 26 y/o female with known diabetes admitted with DKA. Past History Past Medical History: diabetes, hypothyroidism, other (hyperemesis) Medications and Allergies Allergies Allergy/AdvReac Type Severity Reaction Status Date / Time animal dander Allergy Unknown Verified 04/14/21 19:47 Home Medications Medication Instructions Recorded Confirmed Last Taken Type Ferrous Sulfate [Iron 325 MG] 325 mg PO QAM 04/16/21 06/04/21 06/03/21 History DOXYCYCLINE Hyclate [Vibramycin 100 mg PO Q12HR #14 capsule 06/06/21 Unknown Rx CAP] Insulin Glargine,Hum.rec.anlog 12 unit SQ QDAY 30 Days 06/06/21 Unknown Rx [Basaglar Kwikpen U-100] Insulin Lispro [Admelog Solostar] 10 unit SQ TIDAC 30 Days 06/06/21 Unknown Rx Levothyroxine [Synthroid] 50 mcg PO 0600 #30 tablet 06/06/21 Unknown Rx lisinopriL [Zestril TAB] 10 mg PO QDAY #30 tablet 06/06/21 Unknown Rx metroNIDAZOLE [Flagyl TAB] 500 mg PO Q12HR #2 06/06/21 Unknown Rx Active Meds: Active Medications Dextrose (Dextrose 50% In Water (25gm) 50 Ml Syringe) 0 ml IV Q30MIN PRN; Protocol PRN Reason: Hypoglycemia Enoxaparin Sodium (Enoxaparin 40 Mg/0.4 Ml Inj) 40 mg SUB-Q QDAY@2200 SILVANA; Protocol Ferrous Sulfate (Ferrous Sulfate 325 Mg Tab) 325 mg PO QAM SILVANA Insulin Human Regular 100 (units/ Sodium Chloride) 100 mls @ 1 mls/hr IV TITR SILVANA; Protocol Last Titration: 06/24/21 12:05 Dose: 5 units/hr, 5 mls/hr Potassium Chloride/Dextrose/Sod Cl (D5w/0.45% Nacl/Kcl 20 Meq) 20 meq in 1,000 mls @ 125 mls/hr IV DIRECT SILVANA Last Admin: 06/24/21 11:27 Dose: 125 mls/hr Ibuprofen (Ibuprofen 600 Mg Tab) 600 mg PO Q6H PRN PRN Reason: Pain, Mild (1-3) Levothyroxine Sodium (Levothyroxine 50 Mcg Tab) 50 mcg PO 0600 SILVANA Lisinopril (Lisinopril 10 Mg Tab) 10 mg PO QDAY SILVANA Metoclopramide HCl (Metoclopramide 10 Mg/2 Ml Inj) 10 mg IV Q6HR SILVANA Last Admin: 06/24/21 12:46 Dose: 10 mg Morphine Sulfate (Morphine 2 Mg/1 Ml Inj) 2 mg IV Q4H PRN PRN Reason: Pain, Moderate (4-6) Last Admin: 06/24/21 12:46 Dose: 2 mg Ondansetron HCl (Ondansetron 4 Mg/2 Ml Inj) 4 mg IV Q8H PRN PRN Reason: Nausea And Vomiting Sodium Chloride (Sodium Chloride 0.9% 10 Ml Flush Syringe) 10 ml IV BID SILVANA Sodium Chloride (Sodium Chloride 0.9% 10 Ml Flush Syringe) 10 ml IV PRN PRN PRN Reason: LINE FLUSH Review of Systems All systems: negative Exam - Constitutional Vitals: Temp Pulse Resp BP Pulse Ox 98 F 134 H 15 145/95 100 06/24/21 01:30 06/24/21 08:42 06/24/21 08:42 06/24/21 08:42 06/24/21 08:42 Results - Labs CBC & Chem 7: 06/24/21 03:00 06/24/21 10:01 Labs: Abnormal lab results 06/24/21 06/24/21 06/24/21 Range/Units 03:00 03:00 03:15 MCH 27 L (28-32) pg RDW 15.5 H (13.2-15.2) % Lymph % (Auto) 10.9 L (13.4-35.0) % Lymph # (Auto) 0.8 L (1.2-5.4) K/mm3 Seg Neutrophils % 86.2 H (40.0-70.0) % Sodium 135 L (137-145) mmol/L Chloride 94.9 L (98-107) mmol/L Carbon Dioxide 11 L (22-30) mmol/L Creatinine 0.5 L (0.6-1.2) mg/dL Glucose 524 H* (65-100) mg/dL POC Glucose 479 H (70-105) mg/dL Phosphorus (2.5-4.5) mg/dL Lipase 11 L (13-60) units/L 06/24/21 06/24/21 06/24/21 Range/Units 06:43 06:50 08:02 MCH (28-32) pg RDW (13.2-15.2) % Lymph % (Auto) (13.4-35.0) % Lymph # (Auto) (1.2-5.4) K/mm3 Seg Neutrophils % (40.0-70.0) % Sodium (137-145) mmol/L Chloride (98-107) mmol/L Carbon Dioxide 9 L* (22-30) mmol/L Creatinine 0.5 L (0.6-1.2) mg/dL Glucose 361 H (65-100) mg/dL POC Glucose 309 H 331 H (70-105) mg/dL Phosphorus 2.30 L (2.5-4.5) mg/dL Lipase (13-60) units/L 06/24/21 Range/Units 10:01 MCH (28-32) pg RDW (13.2-15.2) % Lymph % (Auto) (13.4-35.0) % Lymph # (Auto) (1.2-5.4) K/mm3 Seg Neutrophils % (40.0-70.0) % Sodium (137-145) mmol/L Chloride 109.1 H (98-107) mmol/L Carbon Dioxide 12 L (22-30) mmol/L Creatinine (0.6-1.2) mg/dL Glucose 233 H (65-100) mg/dL POC Glucose (70-105) mg/dL Phosphorus (2.5-4.5) mg/dL Lipase (13-60) units/L - Imaging and Cardiology CT scan - abdomen: report reviewed CT scan - pelvis: report reviewed Assessment and Plan 26 y/o with DKA 1. NPO 2. IVF's 3. ONce anion gap closes, start long acting insulin therapy 4. Q6hr BMPs 5. Nausea control CCT 31 minutes.
[2021-06-24 13:45] LABS: Blood Urea Nitrogen 13 mg/dL (7-17); Calcium 8.9 mg/dL (8.4-10.2); Hemolysis Index 134
[2021-06-24 13:47] LABS: BUN/Creatinine Ratio 22
[2021-06-24] MEDS: LISINOPRIL 10 MG TAB PO SCH (13:49)
[2021-06-24 14:12] LABS: HCG Qualitative,Urine Negative (Negative)
[2021-06-24 14:13] LABS: Bilirubin,Urine NEG (Negative); Blood,Urine SM (Negative); Color,Urine Straw (Yellow); Mucus,Urine FEW /HPF; Urobilinogen,Urine < 2.0 mg/dL (<2.0)
[2021-06-24 14:23] LABS: Protein,Urine >500 mg/dL (Negative)
[2021-06-24 15:04] LABS: Blood Urea Nitrogen 12 mg/dL (7-17); Calcium 8.9 mg/dL (8.4-10.2); Hemolysis Index 105
[2021-06-24 15:07] LABS: BUN/Creatinine Ratio 20
[2021-06-24] MEDS ORDERED: SODIUM PHOSPHATE 30 MMOL in SODIUM CHLORIDE 0.9% 500 ML 500 ML IV ONE (16:00)
[2021-06-24] MEDS: ONDANSETRON 4 MG/2 ML INJ IV PRN (17:12)
[2021-06-24 18:47] LABS: Blood Urea Nitrogen 12 mg/dL (7-17); Calcium 8.6 mg/dL (8.4-10.2); Hemolysis Index 29
[2021-06-24 18:51] LABS: BUN/Creatinine Ratio 24
[2021-06-24] MEDS: ENOXAPARIN 40 MG/0.4 ML INJ SUB-Q SCH (21:09)
[2021-06-25 00:54] LABS: Blood Urea Nitrogen 10 mg/dL (7-17); Calcium 8.7 mg/dL (8.4-10.2); Hemolysis Index 42
[2021-06-25 01:06] LABS: BUN/Creatinine Ratio 25
[2021-06-25] MEDS: D5W/0.45% NACL/KCL 20 MEQ 20 MEQ/1,000 ML BAG IV SCH ×3 (01:29→17:48)
[2021-06-25] MEDS: LEVOTHYROXINE 50 MCG TAB PO SCH (05:59)
[2021-06-25] MEDS: METOCLOPRAMIDE 10 MG/2 ML INJ IV SCH ×4 (05:59→23:50)
[2021-06-25] MEDS: MORPHINE 2 MG/1 ML INJ IV PRN ×2 (06:33→11:04)
[2021-06-25] MEDS: ONDANSETRON 4 MG/2 ML INJ IV PRN (06:33)
[2021-06-25 06:42] LABS: Blood Urea Nitrogen 9 mg/dL (7-17); Calcium 8.3 mg/dL (8.4-10.2); Hemolysis Index 106
[2021-06-25 06:43] LABS: BUN/Creatinine Ratio 30
[2021-06-25] MEDS ORDERED: INSULIN GLARGINE 100 UNITS/ML SUB-Q ONE ×2 (10:00→11:00)
[2021-06-25] MEDS: FERROUS SULFATE 325 MG TAB PO SCH (10:18)
[2021-06-25] MEDS: LISINOPRIL 10 MG TAB PO SCH (10:19)
--- NOTE | 2021-06-25 11:23 | Progress Note ---
Assessment and Plan 26 y/o with DKA 06/25/21: Halved the dose of Lantus as patient is not eating yet. Spoke with IMS and will try to eat lung. If not eating then transition to floor. If eats and tolerates, discharge to home. COntinue IVF's for now. 1. NPO 2. IVF's 3. ONce anion gap closes, start long acting insulin therapy 4. Q6hr BMPs 5. Nausea control CCT 31 minutes. Subjective Date of service: 06/25/21 Interval history: Anion gap has closed but patient not wanting to eat. Insulin drip has been stopped and long acting insulin ordered. Objective - Constitutional Vitals: Vital Signs - 12hr 06/24/21 06/25/21 06/25/21 23:31 00:00 00:30 Temperature 100.2 F H Pulse Rate 140 H 123 H 118 H Pulse Rate [ 124 H From Monitor] Respiratory 20 15 17 Rate Blood Pressure 172/108 180/112 134/93 O2 Sat by Pulse 99 100 100 Oximetry 06/25/21 06/25/21 06/25/21 01:00 01:30 02:00 Temperature Pulse Rate 109 H 120 H 115 H Pulse Rate [ From Monitor] Respiratory 21 19 27 H Rate Blood Pressure 118/74 161/114 114/85 O2 Sat by Pulse 100 99 97 Oximetry 06/25/21 06/25/21 06/25/21 02:30 03:00 03:30 Temperature Pulse Rate 112 H 107 H 106 H Pulse Rate [ From Monitor] Respiratory 22 22 21 Rate Blood Pressure 124/81 119/78 124/85 O2 Sat by Pulse 98 98 99 Oximetry 06/25/21 06/25/21 06/25/21 04:00 04:30 05:00 Temperature 98.8 F Pulse Rate 107 H 108 H 107 H Pulse Rate [ 113 H From Monitor] Respiratory 17 18 20 Rate Blood Pressure 138/93 142/103 134/97 O2 Sat by Pulse 99 99 100 Oximetry 06/25/21 06/25/21 06/25/21 05:30 06:00 06:31 Temperature Pulse Rate 107 H 115 H 129 H Pulse Rate [ From Monitor] Respiratory 20 19 17 Rate Blood Pressure 143/99 139/101 169/120 O2 Sat by Pulse 99 100 100 Oximetry 06/25/21 06/25/21 06/25/21 07:00 07:13 07:31 Temperature 101.4 F H Pulse Rate 126 H Pulse Rate [ From Monitor] Respiratory 22 Rate Blood Pressure 154/107 154/107 O2 Sat by Pulse 100 100 Oximetry 06/25/21 06/25/21 06/25/21 08:00 08:01 08:31 Temperature 99.4 F Pulse Rate 122 H 107 H 107 H Pulse Rate [ 114 H From Monitor] Respiratory 18 Rate Blood Pressure 154/107 52/34 O2 Sat by Pulse 100 Oximetry 06/25/21 06/25/21 06/25/21 09:00 09:30 10:00 Temperature Pulse Rate 109 H 106 H 112 H Pulse Rate [ From Monitor] Respiratory Rate Blood Pressure 130/88 126/81 126/86 O2 Sat by Pulse 99 100 100 Oximetry 06/25/21 10:19 Temperature Pulse Rate 113 H Pulse Rate [ From Monitor] Respiratory Rate Blood Pressure 125/86 O2 Sat by Pulse Oximetry - Labs CBC & Chem 7: 06/24/21 03:00 06/25/21 05:56 Labs: Abnormal lab results 06/24/21 06/24/21 06/24/21 Range/Units 10:28 11:36 12:08 Chloride (98-107) mmol/L Carbon Dioxide (22-30) mmol/L Creatinine (0.6-1.2) mg/dL Glucose (65-100) mg/dL POC Glucose 158 H 203 H 220 H (70-105) mg/dL Calcium (8.4-10.2) mg/dL 06/24/21 06/24/21 06/24/21 Range/Units 12:30 13:20 14:16 Chloride 107.8 H 111.1 H (98-107) mmol/L Carbon Dioxide 9 L* 14 L (22-30) mmol/L Creatinine (0.6-1.2) mg/dL Glucose 234 H 114 H (65-100) mg/dL POC Glucose 187 H (70-105) mg/dL Calcium (8.4-10.2) mg/dL 06/24/21 06/24/21 06/24/21 Range/Units 14:23 17:07 17:53 Chloride 110.9 H (98-107) mmol/L Carbon Dioxide 14 L (22-30) mmol/L Creatinine 0.5 L (0.6-1.2) mg/dL Glucose 141 H (65-100) mg/dL POC Glucose 130 H 125 H (70-105) mg/dL Calcium (8.4-10.2) mg/dL 06/24/21 06/24/21 06/24/21 Range/Units 19:12 23:02 23:51 Chloride (98-107) mmol/L Carbon Dioxide 16 L (22-30) mmol/L Creatinine 0.4 L (0.6-1.2) mg/dL Glucose 140 H (65-100) mg/dL POC Glucose 136 H 110 H (70-105) mg/dL Calcium (8.4-10.2) mg/dL 06/25/21 06/25/21 06/25/21 Range/Units 01:14 04:01 05:56 Chloride 110.2 H (98-107) mmol/L Carbon Dioxide 15 L (22-30) mmol/L Creatinine 0.3 L (0.6-1.2) mg/dL Glucose 120 H (65-100) mg/dL POC Glucose 127 H 108 H (70-105) mg/dL Calcium 8.3 L (8.4-10.2) mg/dL 06/25/21 06/25/21 06/25/21 Range/Units 05:57 08:24 10:12 Chloride (98-107) mmol/L Carbon Dioxide (22-30) mmol/L Creatinine (0.6-1.2) mg/dL Glucose (65-100) mg/dL POC Glucose 123 H 59 L 128 H (70-105) mg/dL Calcium (8.4-10.2) mg/dL Medications & Allergies - Medications Allergies/Adverse Reactions: Allergies animal dander Allergy (Verified 04/14/21 19:47) Unknown Home Medications: Home Medications Medication Instructions Recorded Confirmed Last Taken Type Ferrous Sulfate [Iron 325 MG] 325 mg PO QAM 04/16/21 06/04/21 06/03/21 History DOXYCYCLINE Hyclate [Vibramycin 100 mg PO Q12HR #14 capsule 06/06/21 Unknown Rx CAP] Insulin Glargine,Hum.rec.anlog 12 unit SQ QDAY 30 Days 06/06/21 Unknown Rx [Basaglar Kwikpen U-100] Insulin Lispro [Admelog Solostar] 10 unit SQ TIDAC 30 Days 06/06/21 Unknown Rx Levothyroxine [Synthroid] 50 mcg PO 0600 #30 tablet 06/06/21 Unknown Rx lisinopriL [Zestril TAB] 10 mg PO QDAY #30 tablet 06/06/21 Unknown Rx metroNIDAZOLE [Flagyl TAB] 500 mg PO Q12HR #2 06/06/21 Unknown Rx Active Medications: Generic Name Dose Route Start Last Admin Trade Name Freq PRN Reason Stop Dose Admin Enoxaparin Sodium 40 mg 06/24/21 22:00 06/24/21 21:09 Enoxaparin 40 Mg/0.4 Ml Inj SUB-Q 40 mg QDAY@2200 SILVANA Administration Protocol Ferrous Sulfate 325 mg 06/25/21 10:00 06/25/21 10:18 Ferrous Sulfate 325 Mg Tab PO Not Given QAM [facility] Potassium Chloride/Dextrose/Sod Cl 20 meq in 1,000 mls @ 125 mls/hr 06/25/21 11:00 06/25/21 10:37 D5w/0.45% Nacl/Kcl 20 Meq IV 125 mls/hr DIRECT SILVANA Administration Ibuprofen 600 mg 06/24/21 10:18 Ibuprofen 600 Mg Tab PO Q6H PRN Pain, Mild (1-3) Insulin Human Lispro 10 unit 06/25/21 11:30 Insulin Lispro 100 Unit/Ml SUB-Q AC [facility] Labetalol HCl 10 mg 06/24/21 14:03 06/24/21 14:10 Labetalol 20 Mg/4 Ml Inj IV 10 mg Q6HR PRN Administration Hypertension Levothyroxine Sodium 50 mcg 06/25/21 06:00 06/25/21 05:59 Levothyroxine 50 Mcg Tab PO 50 mcg 0600 SILVANA Administration Lisinopril 10 mg 06/24/21 12:00 06/25/21 10:19 Lisinopril 10 Mg Tab PO Not Given QDAY SILVANA Metoclopramide HCl 10 mg 06/24/21 13:00 06/25/21 11:04 Metoclopramide 10 Mg/2 Ml Inj IV 10 mg Q6HR SILVANA Administration Morphine Sulfate 2 mg 06/24/21 10:18 06/25/21 11:04 Morphine 2 Mg/1 Ml Inj IV 2 mg Q4H PRN Administration Pain, Moderate (4-6) Ondansetron HCl 4 mg 06/24/21 12:46 06/25/21 06:33 Ondansetron 4 Mg/2 Ml Inj IV 4 mg Q8H PRN Administration Nausea And Vomiting Sodium Chloride 10 ml 06/24/21 11:00 06/25/21 10:19 Sodium Chloride 0.9% 10 Ml Flush Syringe IV 10 ml BID SILVANA Administration Sodium Chloride 10 ml 06/24/21 10:18 Sodium Chloride 0.9% 10 Ml Flush Syringe IV PRN PRN LINE FLUSH
[2021-06-25] MEDS: INSULIN LISPRO 100 UNIT/ML SUB-Q SCH ×2 (11:55→17:36)
[2021-06-25] MEDS ORDERED: HALOPERIDOL LACTATE 5 MG/1 ML INJ IM ONE (12:00)
--- NOTE | 2021-06-25 15:16 | Progress Note ---
Assessment and Plan Assessment and plan: History of present illness: 26-year-old female with history of hypertension, uncontrolled insulin-dependent diabetes and gastroparesis who presented to the emergency department with complaint of 3 days of nausea, vomiting and abdominal pain. She has been admitted several times with similar complaint. She denies headache, visual changes, chest pain, shortness of breath, hematemesis, and blood in vomitus. She denies fevers, chills, night sweats, vaginal discharge and dyspareunia. She takes 15 units of long-acting insulin in the morning and sliding scale with meals. She reports her last dose yesterday. Labs were significant for glucose 524, bicarbonate 11, phosphorus of 2.3. CT of the abdomen/pelvis showed attenuation within the uterus but did not show any other acute abdominal issues. She was admitted for management of DKA and gastroparesis flare. hospital course: 06/25: GAP closed, transitioned to subcutaneous insulin. Patient still nauseous during bedside encounter. Zofran administered. Will downgrade to floor. Continue IVF hydration. Possible d/c tomorrow. Assessment and Plan: #Diabetic Ketoacidosis #Anion gap metabolic acidosis #Poorly controlled insulin-dependent type 2 diabetes mellitus complicated by gastroparesis #Abdominal pain Hemoglobin A1c 14.1 in April 2021, no need to repeat at this time -patient prescribed glargine 12U qday and lispro 10U with meals Repeated episodes of DKA secondary to nonadherence to medications/recommendations -continue insulin gtt, until AG is less than 13 (current AG 25) -continue IVFs, q6hr BMP Continue reglan q6h #Hypertension -BP likely elevated due to pain -will restart lisinopril at home dose -PRN labetalol -SBP goal <160 and DBP goal <90 while inpatient #Hypophosphatemia -phosphorus 2.30 -will give 30mml of NaPhos #Hypothyroidism continue synthroid at home dose #Advanced care planning -Disease education conducted, care plan discussed, diagnoses discussed, prognosis discussed, and patient acknowledges understanding with care plan -Time: +30 min #Uterine findings on CT -CT abd/pelvis shows an area of attenuation within the uterus -hcg negative -follow up with Gynecology outpatient for U/S The high probability of a clinically significant, sudden or life threatening deterioration of the [multiple] system(s) required my full and direct attention, intervention and personal management. The aggregate critical care time was [60] minutes. This time is in addition to time spent performing reported procedures but includes the following: [x] Data Review and interpretation [x] Patient assessment and monitoring of vital signs [x] Documentation [x] Medication orders and management History Interval history: Complains of nausea on encounter. VSS. Hospitalist Physical - Physical exam Narrative exam: GENERAL: Thin woman. In no acute distress. nauseous HEENT: Poor dentition. NECK: Supple. CHEST/LUNGS: CTAB on room air HEART/CARDIOVASCULAR: RRR. No murmur, rubs or gallops appreciated. ABDOMEN: +BS. NT/ND. SKIN: Multiple tattoos. NEURO: No focal motor deficit. Follows all commands. MUSCULOSKELETAL: No joint effusion EXTREMITIES: No cyanosis, clubbing or edema. PSYCH: Cooperative. - Constitutional Vitals: Temp Pulse Resp BP Pulse Ox 99.4 F 114 H 18 137/93 100 06/25/21 08:00 06/25/21 13:30 06/25/21 12:00 06/25/21 13:30 06/25/21 13:15 Results - Labs CBC & Chem 7: 06/24/21 03:00 06/25/21 05:56 Labs: Laboratory Last Values WBC 7.6 K/mm3 (4.5-11.0) 06/24/21 03:00 RBC 4.40 M/mm3 (3.65-5.03) 06/24/21 03:00 Hgb 11.7 gm/dl (10.1-14.3) 06/24/21 03:00 Hct 36.4 % (30.3-42.9) 06/24/21 03:00 MCV 83 fl (79-97) 06/24/21 03:00 MCH 27 pg (28-32) L 06/24/21 03:00 MCHC 32 % (30-34) 06/24/21 03:00 RDW 15.5 % (13.2-15.2) H 06/24/21 03:00 Plt Count 391 K/mm3 (140-440) 06/24/21 03:00 Lymph % (Auto) 10.9 % (13.4-35.0) L 06/24/21 03:00 [place] % (Auto) 2.4 % (0.0-7.3) 06/24/21 03:00 Eos % (Auto) 0.1 % (0.0-4.3) 06/24/21 03:00 Baso % (Auto) 0.4 % (0.0-1.8) 06/24/21 03:00 Lymph # (Auto) 0.8 K/mm3 (1.2-5.4) L 06/24/21 03:00 [place] # (Auto) 0.2 K/mm3 (0.0-0.8) 06/24/21 03:00 Eos # (Auto) 0.0 K/mm3 (0.0-0.4) 06/24/21 03:00 Baso # (Auto) 0.0 K/mm3 (0.0-0.1) 06/24/21 03:00 Seg Neutrophils % 86.2 % (40.0-70.0) H 06/24/21 03:00 Seg Neutrophils # 6.5 K/mm3 (1.8-7.7) 06/24/21 03:00 Sodium 139 mmol/L (137-145) 06/25/21 05:56 Potassium 4.3 mmol/L (3.6-5.0) 06/25/21 05:56 Chloride 110.2 mmol/L (98-107) H 06/25/21 05:56 Carbon Dioxide 15 mmol/L (22-30) L 06/25/21 05:56 Anion Gap 18 mmol/L 06/25/21 05:56 BUN 9 mg/dL (7-17) 06/25/21 05:56 Creatinine 0.3 mg/dL (0.6-1.2) L 06/25/21 05:56 Estimated GFR > 60 ml/min 06/25/21 05:56 BUN/Creatinine Ratio 30 % 06/25/21 05:56 Glucose 120 mg/dL (65-100) H 06/25/21 05:56 POC Glucose 214 mg/dL (70-105) H 06/25/21 11:29 Calcium 8.3 mg/dL (8.4-10.2) L 06/25/21 05:56 Phosphorus 2.80 mg/dL (2.5-4.5) D 06/25/21 Unknown Magnesium 2.20 mg/dL (1.7-2.3) 06/24/21 06:43 Total Bilirubin 0.40 mg/dL (0.1-1.2) 06/24/21 03:00 AST 20 units/L (5-40) 06/24/21 03:00 ALT 14 units/L (7-56) 06/24/21 03:00 Alkaline Phosphatase 110 units/L (35-129) 06/24/21 03:00 Total Protein 6.9 g/dL (6.3-8.2) 06/24/21 03:00 Albumin 4.1 g/dL (3.9-5) 06/24/21 03:00 Albumin/Globulin Ratio 1.5 % 06/24/21 03:00 Lipase 11 units/L (13-60) L 06/24/21 03:00 HCG, Qual Negative (Negative) 06/24/21 03:00 Urine Color Straw (Yellow) 06/24/21 13:50 Urine Turbidity Clear (Clear) 06/24/21 13:50 Urine pH 5.0 (5.0-7.0) 06/24/21 13:50 Ur Specific [place] 1.029 (1.003-1.030) 06/24/21 13:50 Urine Protein >500 mg/dL (Negative) 06/24/21 13:50 Urine Glucose (UA) >=500 mg/dL (Negative) 06/24/21 13:50 Urine Ketones 80 mg/dL (Negative) 06/24/21 13:50 Urine Blood Sm (Negative) 06/24/21 13:50 Urine Nitrite Neg (Negative) 06/24/21 13:50 Ur Reducing Substances Not Reportable 06/24/21 13:50 Urine Bilirubin Neg (Negative) 06/24/21 13:50 Urine Ictotest Not Reportable 06/24/21 13:50 Urine Urobilinogen < 2.0 mg/dL (<2.0) 06/24/21 13:50 Ur Leukocyte Esterase Neg (Negative) 06/24/21 13:50 Urine WBC (Auto) 2.0 /HPF (0.0-6.0) 06/24/21 13:50 Urine RBC (Auto) 2.0 /HPF (0.0-6.0) 06/24/21 13:50 U Epithel Cells (Auto) 1.0 /HPF (0-13.0) 06/24/21 13:50 Urine Mucus Few /HPF 06/24/21 13:50 Urine HCG, Qual Negative (Negative) 06/24/21 13:50 [place]vin/IV: Voiding Method Toilet Active Medications - Current Medications Current Medications: Generic Name Dose Route Start Last Admin Trade Name Freq PRN Reason Stop Dose Admin Enoxaparin Sodium 40 mg 06/24/21 22:00 06/24/21 21:09 Enoxaparin 40 Mg/0.4 Ml Inj SUB-Q 40 mg QDAY@2200 SILVANA Administration Protocol Ferrous Sulfate 325 mg 06/25/21 10:00 06/25/21 10:18 Ferrous Sulfate 325 Mg Tab PO Not Given QAM SILVANA Potassium Chloride/Dextrose/Sod Cl 20 meq in 1,000 mls @ 125 mls/hr 06/25/21 11:00 06/25/21 10:37 D5w/0.45% Nacl/Kcl 20 Meq IV 125 mls/hr DIRECT SILVANA Administration Ibuprofen 600 mg 06/24/21 10:18 Ibuprofen 600 Mg Tab PO Q6H PRN Pain, Mild (1-3) Insulin Human Lispro 10 unit 06/25/21 11:30 06/25/21 11:55 Insulin Lispro 100 Unit/Ml SUB-Q 10 unit AC SILVANA Administration Labetalol HCl 10 mg 06/24/21 14:03 06/24/21 14:10 Labetalol 20 Mg/4 Ml Inj IV 10 mg Q6HR PRN Administration Hypertension Levothyroxine Sodium 50 mcg 06/25/21 06:00 06/25/21 05:59 Levothyroxine 50 Mcg Tab PO 50 mcg 0600 SILVANA Administration Lisinopril 10 mg 06/24/21 12:00 06/25/21 10:19 Lisinopril 10 Mg Tab PO Not Given QDAY SILVANA Metoclopramide HCl 10 mg 06/24/21 13:00 06/25/21 11:04 Metoclopramide 10 Mg/2 Ml Inj IV 10 mg Q6HR SILVANA Administration Morphine Sulfate 2 mg 06/24/21 10:18 06/25/21 11:04 Morphine 2 Mg/1 Ml Inj IV 2 mg Q4H PRN Administration Pain, Moderate (4-6) Ondansetron HCl 4 mg 06/24/21 12:46 06/25/21 06:33 Ondansetron 4 Mg/2 Ml Inj IV 4 mg Q8H PRN Administration Nausea And Vomiting Sodium Chloride 10 ml 06/24/21 11:00 06/25/21 10:19 Sodium Chloride 0.9% 10 Ml Flush Syringe IV 10 ml BID SILVANA Administration Sodium Chloride 10 ml 06/24/21 10:18 Sodium Chloride 0.9% 10 Ml Flush Syringe IV PRN PRN LINE FLUSH Nutrition/Malnutrition Assess - Dietary Evaluation Nutrition/Malnutrition Findings: Nutrition Notes Start: 06/24/21 14:42 Freq: Status: Active Protocol: Document 06/25/21 10:55 QAMAR (Rec: 06/25/21 11:07 QAMAR [id number]) Nutrition Notes Initial or Follow up Brief Note Current Diagnosis Diabetes,Hypertension Other Pertinent Diagnosis DKA, Gastroparesis, Metabolic Acidosis, Hypophosphatemia, Hypothyroidism. Current Diet Cardiac/Consistent Carbohydrates Diet (since B ). Height 5 ft 2 in Weight 45.359 kg [place] Body Weight (kg) 50.00 BMI 18.3 Weight change and time frame No body weight change reportred in 1 day. Weight Status Appropriate Subjective/Other Information RD consult for Low BMI assessment. No reports available on Pt's PO intake of meals at the time , will assess at F/U. Will continue dietary supplementation until PO intake assessment is satisfactory. Pt is on Room Air, O2 saturation @ 100%, according to Physical Assessment History notes. Anthropometrics from last visits on 06/07/21, Pt's Ht 5' 4", Wt 52 Kg, BMI 21.0; 05/05, Pt's Ht 5' 4", Wt 46 Kg, BMI 17.5; 12/24/20, Pt's Ht 5' 2", Wt 50 Kg, BMI 20.1; shows inconsistencies. Pt's Low BMI seems to correspond to a natural body composition, and not related to a sudden loss of body weight nor chronic malnutrition, since no signs of concern were mentioned in the Physical Assessment History or the Progress notes. Percent of energy/protein needs met: Prescribed Cardiac/Consistent Carbohydrates Diet provides for energy/protein needs (1, 977 Kcal/86 g) during LOS; additionally, Dietary Supplements will compensate for possible poor or insufficient PO intake of meals with 440 Kcal and 20 g of protein. #1 Nutrition Diagnosis Altered GI function Diagnosis Progress(for reassessment Resolved documentation) Is patient on ventilator? No Is Patient Ambulatory and/or Out of Bed Yes REE-([place]-St. Jeor-ambulatory/OOB) [ 1503.892 [id number]] Kcal/Kg value to use for calculation 27 Approximate Energy Requirements Using 1225 kcal/Kg Calculation Used for Recommendations Kcal/kg Additional Notes Protein: 1.2-2 g/Kg IBW; 60- 100 g/day. Fluids: 1 ml/Kcal, or as per MD. Nutrition Intervention Change Diet Order: Continue Cardiac/Consistent Carbohydrates Diet. Add Supplement/Snack (indicate name/kcal Continue 8 fl oz Glucerna; BID /protein ) . Provides kCal: 440 Provides Protein (gm) 20 Goal #1 Compensate, through dietary supplementation, for possible poor or insufficient PO intake of meals during LOS. Goal #2 Adjust the dietary intervention to better serve Pt's needs and clinical conditions during LOS. Goal #3 Maintain body weight within +/ -3% of admission body weight during LOS. Additional Comments Continue monitoring ONS, food tolerance, %PO intake of meals and ONS, and BM.
[2021-06-25] MEDS: ENOXAPARIN 40 MG/0.4 ML INJ SUB-Q SCH (21:48)
[2021-06-26] MEDS: LEVOTHYROXINE 50 MCG TAB PO SCH (05:33)
[2021-06-26] MEDS: METOCLOPRAMIDE 10 MG/2 ML INJ IV SCH (05:34)
[2021-06-26] MEDS: MORPHINE 2 MG/1 ML INJ IV PRN (05:34)
[2021-06-26] MEDS ORDERED: LACTATED RINGERS 1,000 ML IV ONE (07:42)
[2021-06-26] MEDS: LISINOPRIL 10 MG TAB PO SCH (09:04)
[2021-06-26] MEDS: INSULIN LISPRO 100 UNIT/ML SUB-Q SCH (09:04)
[2021-06-26] MEDS: FERROUS SULFATE 325 MG TAB PO SCH (09:05)
--- NOTE | 2021-06-26 13:12 | Progress Note ---
Assessment and Plan 26 y/o with DKA 06/26/21: Will sign off, call if needed. 06/25/21: Halved the dose of Lantus as patient is not eating yet. Spoke with IM S and will try to eat lunch. If not eating then transition to floor. If eats and tolerates, discharge to home. COntinue IVF's for now. 1. NPO 2. IVF's 3. ONce anion gap closes, start long acting insulin therapy 4. Q6hr BMPs 5. Nausea control CCT 31 minutes. Subjective Date of service: 06/26/21 Interval history: Successful transfer out of ICU. No pulmonary issues. Objective - Constitutional Vitals: Vital Signs - 12hr 06/26/21 06/26/21 06/26/21 02:00 03:18 04:00 Temperature 99.7 F H Pulse Rate 0 L 111 H Pulse Rate [ 117 H From Monitor] Respiratory 18 20 Rate Blood Pressure 130/84 O2 Sat by Pulse 99 100 Oximetry 06/26/21 06/26/21 08:31 09:04 Temperature 97.9 F Pulse Rate 100 H Pulse Rate [ From Monitor] Respiratory 16 Rate Blood Pressure 155/105 O2 Sat by Pulse Oximetry - Labs CBC & Chem 7: 06/24/21 03:00 06/25/21 05:56 Labs: Abnormal lab results 06/25/21 06/26/21 06/26/21 Range/Units 17:25 00:33 08:29 POC Glucose 121 H 261 H 223 H (70-105) mg/dL Medications & Allergies - Medications Allergies/Adverse Reactions: Allergies animal dander Allergy (Verified 04/14/21 19:47) Unknown Home Medications: Home Medications Medication Instructions Recorded Confirmed Last Taken Type Ferrous Sulfate [Iron 325 MG] 325 mg PO QAM 04/16/21 06/04/21 06/03/21 History DOXYCYCLINE Hyclate [Vibramycin 100 mg PO Q12HR #14 capsule 06/06/21 Unknown Rx CAP] Insulin Glargine,Hum.rec.anlog 12 unit SQ QDAY 30 Days 06/06/21 Unknown Rx [Basaglar Kwikpen U-100] Insulin Lispro [Admelog Solostar] 10 unit SQ TIDAC 30 Days 06/06/21 Unknown Rx Levothyroxine [Synthroid] 50 mcg PO 0600 #30 tablet 06/06/21 Unknown Rx lisinopriL [Zestril TAB] 10 mg PO QDAY #30 tablet 06/06/21 Unknown Rx metroNIDAZOLE [Flagyl TAB] 500 mg PO Q12HR #2 06/06/21 Unknown Rx Active Medications: Generic Name Dose Route Start Last Admin Trade Name Freq PRN Reason Stop Dose Admin Enoxaparin Sodium 40 mg 06/24/21 22:00 06/25/21 21:48 Enoxaparin 40 Mg/0.4 Ml Inj SUB-Q 40 mg QDAY@2200 SILVANA Administration Protocol Ferrous Sulfate 325 mg 06/25/21 10:00 06/26/21 09:05 Ferrous Sulfate 325 Mg Tab PO 325 mg QAM SILVANA Administration Potassium Chloride/Dextrose/Sod Cl 20 meq in 1,000 mls @ 125 mls/hr 06/25/21 11:00 06/25/21 17:48 D5w/0.45% Nacl/Kcl 20 Meq IV 125 mls/hr DIRECT SILVANA Administration Ibuprofen 600 mg 06/24/21 10:18 Ibuprofen 600 Mg Tab PO Q6H PRN Pain, Mild (1-3) Insulin Human Lispro 10 unit 06/25/21 11:30 06/26/21 09:04 Insulin Lispro 100 Unit/Ml SUB-Q 10 unit AC SILVANA Administration Labetalol HCl 10 mg 06/24/21 14:03 06/24/21 14:10 Labetalol 20 Mg/4 Ml Inj IV 10 mg Q6HR PRN Administration Hypertension Levothyroxine Sodium 50 mcg 06/25/21 06:00 06/26/21 05:33 Levothyroxine 50 Mcg Tab PO 50 mcg 0600 SILVANA Administration Lisinopril 10 mg 06/24/21 12:00 06/26/21 09:04 Lisinopril 10 Mg Tab PO 10 mg QDAY SILVANA Administration Metoclopramide HCl 10 mg 06/24/21 13:00 06/26/21 05:34 Metoclopramide 10 Mg/2 Ml Inj IV 10 mg Q6HR SILVANA Administration Morphine Sulfate 2 mg 06/24/21 10:18 06/26/21 05:34 Morphine 2 Mg/1 Ml Inj IV 2 mg Q4H PRN Administration Pain, Moderate (4-6) Ondansetron HCl 4 mg 06/24/21 12:46 06/25/21 06:33 Ondansetron 4 Mg/2 Ml Inj IV 4 mg Q8H PRN Administration Nausea And Vomiting Sodium Chloride 10 ml 06/24/21 11:00 06/25/21 21:48 Sodium Chloride 0.9% 10 Ml Flush Syringe IV 10 ml BID SILVANA Administration Sodium Chloride 10 ml 06/24/21 10:18 Sodium Chloride 0.9% 10 Ml Flush Syringe IV PRN PRN LINE FLUSH
--- NOTE | 2021-06-26 14:17 | Discharge Summary ---
Providers - Providers Date of Admission: 06/24/21 10:18 Date of discharge: 06/26/21 Attending physician: TAYLOR BRADLEY MD 06/24/21 10:42 Consult to Physician [CONS] Routine Comment: Consulting Provider: SERINA FELDMAN Physician Instructions: Reason For Exam: DKA Hospitalization Reason for admission: Diabetic ketoacidosis, anion gap metabolic acidosis Condition: Stable Pertinent studies: Reviewed. Procedures: None. Hospital course: 26-year-old female with history of hypertension, uncontrolled insulin-dependent diabetes and gastroparesis who presented to the emergency department with complaint of 3 days of nausea, vomiting and abdominal pain. She has been adm itted several times with similar complaint. She denies headache, visual changes, chest pain, shortness of breath, hematemesis, and blood in vomitus. She denies fevers, chills, night sweats, vaginal discharge and dyspareunia. She takes 15 units of long-acting insulin in the morning and sliding scale with meals. She reports her last dose yesterday. Labs were significant for glucose 524, bicarbonate 11, phosphorus of 2.3. CT of the abdomen/pelvis showed attenuation within the uterus but did not show any other acute abdominal issues. She was admitted for management of DKA and gastroparesis flare. Patient was admitted to the MICU where she was initiated on IV insulin drip and aggressive IV fluid resuscitation. Patient's anion gap closed, the patient was transferred to the floor. The patient continued to remain tachycardic, and the plan was to continue with IV fluid resuscitation while the patient gained an appetite to eat. Patient left AMA due to childcare concerns. Patient was counseled at length about the importance of adherence to her insulin, dietary changes, following up with her primary care provider, and cessation of marijuana consumption. Patient expressed understanding. Disposition: 01 HOME / SELF CARE / HOMELESS Final Discharge Diagnosis (Prints w/discharge instructions): Diabetic ketoacidosis, anion gap metabolic acidosis, poorly controlled insulin-dependent type 1 diabetes mellitus complicated by gastroparesis, abdominal pain, hypertension, hypophosphatemia, hypothyroidism Time spent for discharge: 45 min Core Measure Documentation - Palliative Care Palliative Care/ Comfort Measures: Not Applicable - Core Measures Any of the following diagnoses?: none Exam - Constitutional Vitals: Temp Pulse Resp BP Pulse Ox 97.9 F 100 H 16 155/105 100 06/26/21 08:31 06/26/21 09:04 06/26/21 08:31 06/26/21 08:31 06/26/21 04:00 General appearance: Present: no acute distress, well-nourished, other (Dehydrated) - EENT Eyes: Present: PERRL, EOM intact ENT: hearing intact, clear oral mucosa, dentition normal - Neck Neck: Present: supple, normal ROM - Respiratory Respiratory effort: normal Respiratory: bilateral: CTA - Cardiovascular Heart rate: 118 Rhythm: regular Heart Sounds: Present: S1 & S2 - Extremities Extremities: no ischemia, pulses intact, pulses symmetrical, No edema, normal temperature, normal color, Full ROM Peripheral Pulses: within normal limits - Abdominal General gastrointestinal: Present: soft, non-tender, non-distended, normal bowel sounds Female genitourinary: Present: deferred - Rectal Rectal Exam: deferred - Integumentary Integumentary: Present: clear, warm, dry - Musculoskeletal Musculoskeletal: strength equal bilaterally - Psychiatric Psychiatric: appropriate mood/affect, memory intact, cooperative - Neurologic Neurologic: CNII-XII intact, moves all extremities - Allied Health Allied health notes reviewed: nursing Plan Activity: advance as tolerated Diet: low salt, diabetic Additional Instructions: 26-year-old female with history of hypertension, uncontrolled insulin-dependent diabetes and gastroparesis who presented to the emergency department with complaint of 3 days of nausea, vomiting and abdominal pain. She has been admitted several times with similar complaint. She denies headache, visual changes, chest pain, shortness of breath, hematemesis, and blood in vomitus. She denies fevers, chills, night sweats, vaginal discharge and dyspareunia. She takes 15 units of long-acting insulin in the morning and sliding scale with meals. She reports her last dose yesterday. Labs were significant for glucose 524, bicarbonate 11, phosphorus of 2.3. CT of the abdomen/pelvis showed attenuation within the uterus but did not show any other acute abdominal issues. She was admitted for management of DKA and gastroparesis flare. Patient was admitted to the MICU where she was initiated on IV insulin drip and aggressive IV fluid resuscitation. Patient's anion gap closed, the patient was transferred to the floor. The patient continued to remain tachycardic, and the plan was to continue with IV fluid resuscitation while the patient gained an appetite to eat. Patient left AMA due to childcare concerns. Patient was counseled at length about the importance of adherence to her insulin, dietary changes, following up with her primary care provider, and cessation of marijuana consumption. Patient expressed understanding. Care Plan Goals: Patient left AMA. Assessment: 26-year-old female with history of hypertension, uncontrolled insulin-dependent diabetes and gastroparesis who presented to the emergency department with complaint of 3 days of nausea, vomiting and abdominal pain. She has been admitted several times with similar complaint. She denies headache, visual changes, chest pain, shortness of breath, hematemesis, and blood in vomitus. She denies fevers, chills, night sweats, vaginal discharge and dyspareunia. She takes 15 units of long-acting insulin in the morning and sliding scale with meals. She reports her last dose yesterday. Labs were significant for glucose 524, bicarbonate 11, phosphorus of 2.3. CT of the abdomen/pelvis showed attenu ation within the uterus but did not show any other acute abdominal issues. She was admitted for management of DKA and gastroparesis flare. Patient was admitted to the MICU where she was initiated on IV insulin drip and aggressive IV fluid resuscitation. Patient's anion gap closed, the patient was transferred to the floor. The patient continued to remain tachycardic, and the plan was to continue with IV fluid resuscitation while the patient gained an appetite to eat. Patient left AMA due to childcare concerns. Patient was counseled at length about the importance of adherence to her insulin, dietary changes, following up with her primary care provider, and cessation of marijuana consumption. Patient expressed understanding. Follow up with: STEW SMITH MD [Staff Physician] - 3-5 Days Forms: AMA Form Prescriptions: Insulin Lispro [Admelog Solostar] 10 unit SQ TIDAC 30 Days #2 pen Insulin Glargine,Hum.rec.anlog [Basaglar Kwikpen U-100] 12 unit SQ QDAY 30 Days #2 pen Levothyroxine [Synthroid] 50 mcg PO 0600 #30 tablet lisinopriL [Zestril TAB] 10 mg PO QDAY #30 tablet
[2021-06-26 16:55] VITALS: BP 141/67
== END 2021-06-26 10:30 | disposition left against medical advice (07) | DRG 639 ==
LOC: ED 01:19 → CC1 10:18 → 4A 06-25 18:05
PROVIDERS: ADMIT Student in an Organized Health Care Education/Training Program; ATTEND Student in an Organized Health Care Education/Training Program
DX: E11.10 Type 2 diabetes mellitus with ketoacidosis without coma (principal); I10 Essential (primary) hypertension; E11.43 Type 2 diabetes mellitus with diabetic autonomic (poly)neuropathy; K31.84 Gastroparesis; E83.39 Other disorders of phosphorus metabolism; E03.9 Hypothyroidism, unspecified
CPT/HCPCS: 36415; 74177; 80048; 80053; 81001; 81025; 82962; 83690; 83735; 84100; 84703; 85025; G0378; J3480; J3490; Q9967; J1630; J1650; J1815; J2060; J2270; J2405; J2765; J7030

== ENCOUNTER 2021-07-20 16:50 | Emergency (ER) | payer MEDICAID ==
[2021-07-20 17:01] VITALS: BP 152/88
== END 2021-07-20 18:00 | disposition left against medical advice (07) ==
LOC: ED 16:50
DX: R10.9 Unspecified abdominal pain (principal); Z53.21 Procedure and treatment not carried out due to patient leaving prior to being seen by health care provider

== ENCOUNTER 2021-08-28 10:20 | Emergency (ER) | payer MEDICAID ==
[2021-08-28] MEDS ORDERED: ONDANSETRON 4 MG/2 ML INJ IM ONE (11:12)
[2021-08-28] MEDS ORDERED: HALOPERIDOL LACTATE 5 MG/1 ML INJ IM ONE (11:12)
--- NOTE | 2021-08-28 11:15 | Emergency Department Report ---
ED Abdominal Pain HPI - General Chief Complaint: Abdominal Pain Stated Complaint: ABD PAIN Time Seen by Provider: 08/28/21 11:08 Source: EMS Mode of arrival: Ambulatory Limitations: No Limitations - History of Present Illness Initial Comments: Patient is a 26-year-old female with history of diabetic gastroparesis presenting to ED with complaint of generalized abdominal pain with associated nausea and vomiting. Denies recent illness, fever or chills. No recent surgeries. Severity scale (0 -10): 10 - Related Data Home Medications Medication Instructions Recorded Confirmed Last Taken Ferrous Sulfate [Iron 325 MG] 325 mg PO QAM 04/16/21 06/04/21 06/03/21 Previous Rx's Medication Instructions Recorded Last Taken Type DOXYCYCLINE Hyclate [Vibramycin 100 mg PO Q12HR #14 capsule 06/06/21 Unknown Rx CAP] metroNIDAZOLE [Flagyl TAB] 500 mg PO Q12HR #2 06/06/21 Unknown Rx Insulin Glargine,Hum.rec.anlog 12 unit SQ QDAY 30 Days #2 pen 06/26/21 Unknown Rx [Basaglar Kwikpen U-100] Insulin Lispro [Admelog Solostar] 10 unit SQ TIDAC 30 Days #2 pen 06/26/21 Unknown Rx Levothyroxine [Synthroid] 50 mcg PO 0600 #30 tablet 06/26/21 Unknown Rx lisinopriL [Zestril TAB] 10 mg PO QDAY #30 tablet 06/26/21 Unknown Rx Ketorolac [Toradol] 10 mg PO Q6H PRN #10 08/28/21 Unknown Rx Allergies Allergy/AdvReac Type Severity Reaction Status Date / Time animal dander Allergy Unknown Verified 07/20/21 17:01 ED Review of Systems ROS: Stated complaint: ABD PAIN Other details as noted in HPI Constitutional: denies: chills, fever Respiratory: denies: cough, shortness of breath, wheezing Cardiovascular: denies: chest pain, palpitations Gastrointestinal: abdominal pain, nausea, vomiting Musculoskeletal: denies: back pain, joint swelling, arthralgia Skin: denies: rash, lesions Neurological: denies: headache, weakness, paresthesias Psychiatric: denies: anxiety, depression ED Past Medical Hx - Past Medical History Hx Hypertension: Yes Hx Congestive Heart Failure: No Hx Diabetes: Yes Hx Deep Vein Thrombosis: No Hx Renal Disease: No Hx Sickle Cell Disease: No Hx Seizures: No Hx Asthma: No Hx COPD: No Hx HIV: No Additional medical history: Gastroparesis - Surgical History Additional Surgical History: 2017. wisdom teeth - Social History Smoking Status: Current Some Day Smoker - Medications Home Medications: Home Medications Medication Instructions Recorded Confirmed Last Taken Type Ferrous Sulfate [Iron 325 MG] 325 mg PO QAM 04/16/21 06/04/21 06/03/21 History DOXYCYCLINE Hyclate [Vibramycin 100 mg PO Q12HR #14 capsule 06/06/21 Unknown Rx CAP] metroNIDAZOLE [Flagyl TAB] 500 mg PO Q12HR #2 06/06/21 Unknown Rx Insulin Glargine,Hum.rec.anlog 12 unit SQ QDAY 30 Days #2 pen 06/26/21 Unknown Rx [Basaglar Kwikpen U-100] Insulin Lispro [Admelog Solostar] 10 unit SQ TIDAC 30 Days #2 pen 06/26/21 Unknown Rx Levothyroxine [Synthroid] 50 mcg PO 0600 #30 tablet 06/26/21 Unknown Rx lisinopriL [Zestril TAB] 10 mg PO QDAY #30 tablet 06/26/21 Unknown Rx Ketorolac [Toradol] 10 mg PO Q6H PRN #10 08/28/21 Unknown Rx ED Physical Exam - General Limitations: No Limitations General appearance: alert, in distress - Head Head exam: Present: atraumatic, normocephalic - Respiratory Respiratory exam: Present: normal lung sounds bilaterally. Absent: respiratory distress - Cardiovascular Cardiovascular Exam: Present: regular rate, normal rhythm, normal heart sounds - GI/Abdominal GI/Abdominal exam: Present: soft, tenderness. Absent: distended, guarding, rebound, rigid - Rectal Rectal exam: Present: deferred - Neurological Exam Neurological exam: Present: alert, oriented X3 - Psychiatric Psychiatric exam: Present: normal affect, normal mood - Skin Skin exam: Present: warm, dry, intact, normal color ED Course Vital Signs 08/28/21 08/28/21 08/28/21 10:22 10:57 11:01 Temperature 97.9 F Pulse Rate 112 H 113 H Respiratory 18 24 Rate Blood Pressure 160/82 [Right] O2 Sat by Pulse 99 100 100 Oximetry 08/28/21 08/28/21 08/28/21 11:15 11:36 18:05 Temperature 98.8 F Pulse Rate 102 H Respiratory 20 18 Rate Blood Pressure 148/84 [Right] O2 Sat by Pulse 100 100 100 Oximetry ED Medical Decision Making - Lab Data Result diagrams: 08/28/21 12:51 08/28/21 12:51 - Medical Decision Making Patient given 1 L normal saline bolus along with Zofran and Haldol. Leukocyto sis present on CBC. Chemistry reveals hyperglycemia with serum glucose of 484. Patient given 10 units of insulin. On reassessment patient is sleeping in bed. Serum glucose 360. She is stable for discharge home with return precautions. Critical care attestation.: If time is entered above; I have spent that time in minutes in the direct care of this critically ill patient, excluding procedure time. ED Disposition Clinical Impression: Diabetic gastroparesis Disposition: 01 HOME / SELF CARE / HOMELESS Is pt being admited?: No Condition: Stable Instructions: Abdominal Pain (ED), Diabetes Mellitus Type 2 in Adults (ED), Ga stroparesis Referrals: PRIMARY CARE, [Primary Care Provider] - 3-5 Days
[2021-08-28 14:19] LABS: Hematocrit 34.7 % (30.3-42.9); Hemoglobin 11.3 gm/dl (10.1-14.3); Mean Corpuscular HGB Conc 33 % (30-34); Mean Corpuscular Volume 82 fl (79-97); Platelet Count 354 K/mm3 (140-440); Red Blood Count 4.24 M/mm3 (3.65-5.03); Red Cell Distribution Width 14.3 % (13.2-15.2)
[2021-08-28 14:29] LABS: Alanine Aminotransferase 13 units/L (7-56); Albumin 4.4 g/dL (3.9-5); BUN/Creatinine Ratio 35; Bilirubin,Direct < 0.2 mg/dL (0-0.2); Blood Urea Nitrogen 14 mg/dL (7-17); Calcium 9.7 mg/dL (8.4-10.2); Hemolysis Index 12
[2021-08-28] MEDS ORDERED: SODIUM CHLORIDE 0.9% 1000 ML 1,000 ML IV ONE (14:47)
[2021-08-28] MEDS ORDERED: INSULIN REGULAR, HUMAN 100 UNITS/1 ML IV ONE ×2 (14:48→16:48)
[2021-08-28 15:14] LABS: Anisocytosis 2+; Basophils % (Manual) 0 % (0.0-1.8); Hypochromasia 1+; Monocytes % (Manual) 0 % (0.0-7.3); Poikilocytosis Few; Total Cells Counted 100
[2021-08-28 15:15] LABS: Large Platelets Rare; Ovalocytes Rare; Platelet Estimate Consistent w Auto
[2021-08-28 18:06] VITALS: BP 148/84
[2021-08-28] MEDS ORDERED: HYDROmorphone 1 MG/1 ML INJ IV ONE (18:07)
== END 2021-08-28 20:15 | disposition home or self-care (01) ==
LOC: ED 10:20
DX: E11.43 Type 2 diabetes mellitus with diabetic autonomic (poly)neuropathy (principal); K31.84 Gastroparesis; I10 Essential (primary) hypertension; Z98.890 Other specified postprocedural states; F17.290 Nicotine dependence, other tobacco product, uncomplicated; Z91.048 Other nonmedicinal substance allergy status
CPT/HCPCS: 36415; 80048; 80076; 82150; 82962; 83690; 84703; 85007; 85025; 96361; 96372; 96374; 99284; J1630; J2405; J7030; Q9967; J1815

== ENCOUNTER 2021-10-16 13:44 | Inpatient (IN) | payer MEDICAID ==
[2021-10-16] MEDS ORDERED: SODIUM CHLORIDE 0.9% 1000 ML 1,000 ML IV ONE ×4 (14:43→19:57)
[2021-10-16] MEDS ORDERED: LORazepam 2 MG/ML VIAL IV ONE (14:43)
[2021-10-16] MEDS ORDERED: FAMOTIDINE 20 MG/2 ML INJ IV ONE ×3 (14:44→21:00)
--- NOTE | 2021-10-16 15:50 | Emergency Department Report ---
HPI - General Chief Complaint: Hyperglycemia PUI?: No Time Seen by Provider: 10/16/21 14:42 - HPI HPI: 26-year-old female with a history of uncontrolled diabetes, hypertension, multiple prior admissions in the setting of intractable nausea vomiting abdominal pain and gastroparesis, presents for evaluation of nausea vomiting abdominal pain and complaints of gastroparesis x3 days. Patient states she has not taken her medication in several days. She states that her last bowel movement was 2 days ago and was normal. She denies any constipation or obstipation. No melena hematochezia or hematemesis. Patient tells this provi fransisco that she is not . Last menstrual cycle per her report is" I think 2 weeks ago. Patient cannot provide clear information concerning what she thinks may be triggering her symptoms but is repeatedly requesting to be given "strong medicine like Dilaudid I got last time." Pain to her abdomen is diffuse cramping constant and does not radiate. No aggravators or alleviators. She denies any vaginal bleeding or discharge. No chest pain or shortness of breath no difficulty breathing or palpitations. Patient states she has been smoking marijuana but denies any other illicit drug usage pain currently 10 a 10 ED Past Medical Hx - Past Medical History Previous Medical History?: Yes Hx Hypertension: Yes Hx Congestive Heart Failure: No Hx Diabetes: Yes Hx Deep Vein Thrombosis: No Hx Renal Disease: No Hx Sickle Cell Disease: No Hx Seizures: No Hx Asthma: No Hx COPD: No Hx HIV: No Additional medical history: Gastroparesis - Surgical History Additional Surgical History: 2017. wisdom teeth - Social History Smoking Status: Current Every Day Smoker Substance Use Type: Marijuana - Medications Home Medications: Home Medications Medication Instructions Recorded Confirmed Last Taken Type Ferrous Sulfate [Iron 325 MG] 325 mg PO QAM 04/16/21 06/04/21 06/03/21 History DOXYCYCLINE Hyclate [Vibramycin 100 mg PO Q12HR #14 capsule 06/06/21 Unknown Rx CAP] metroNIDAZOLE [Flagyl TAB] 500 mg PO Q12HR #2 06/06/21 Unknown Rx Insulin Glargine,Hum.rec.anlog 12 unit SQ QDAY 30 Days #2 pen 06/26/21 Unknown Rx [Basaglar Kwikpen U-100] Insulin Lispro [Admelog Solostar] 10 unit SQ TIDAC 30 Days #2 pen 06/26/21 Unknown Rx Levothyroxine [Synthroid] 50 mcg PO 0600 #30 tablet 06/26/21 Unknown Rx lisinopriL [Zestril TAB] 10 mg PO QDAY #30 tablet 06/26/21 Unknown Rx Ketorolac [Toradol] 10 mg PO Q6H PRN #10 08/28/21 Unknown Rx ED Review of Systems ROS: Stated complaint: ABD PAIN Other details as noted in HPI Comment: All other systems reviewed and negative Physical Exam - Physical Exam Vital Signs: Vital Signs 10/16/21 15:19 Respiratory 20 Rate O2 Sat by Pulse 98 Oximetry General: Gen: Young adult female, disheveled, persistently sticking her fingers down her throat, vomiting clear vomitus, writhing on stretcher, screaming loudly in the exam room, mildly redirectable by staff members HEENT: Normocephalic atraumatic pupils equally round and reactive to light extraocular muscles intact sclera anicteric, patient has poor dentition with multiple either missing or carry teeth Neck: Full range of motion, no midline spinal tenderness palpation, no JVD, no carotid bruits, no nuchal rigidity CVS: S1-S2 regular rate and rhythm with no gallops rubs or murmurs, chest wall nontender Pulmonary: Clear to auscultation bilaterally, no wheezes rales or rhonchi Abdomen: Soft nondistended nontender no guarding or rebound tenderness, no palpable deformities or step-offs, normal active bowel sounds, no hepatosplenomegaly, no pulsatile masses : Deferred Extremities: No cyanosis no clubbing no edema, intact distal peripheral pulses, Integumentary: Skin normal, no petechia no purpura no abscess no lacerations no evidence of trauma no evidence of infection Neuro: Patient is awake alert and oriented to person place time situation, mentating well, cranial nerves II through XII intact, no focal neurodeficits, sensation grossly intact, patient observed ambulating here for stroke normal steady Psych: Patient persistently screaming in examination room, writhing on stretcher, observed pulling on IV catheter that has been placed in her foot, minimally directable ED Course Vital Signs 10/16/21 15:19 Respiratory 20 Rate O2 Sat by Pulse 98 Oximetry - Reevaluation(s) Reevaluation #1: 10/16/21 15:50 Patient is comfortable and well-appearing, no acute distress, moving all extrem ities, Reevaluation #2: 10/16/21 17:33 Pt observed inserting 2 fingers into her mouth, forcing herself to vomit. Pt also observed actively spitting on floor of her examination room. Pt redirected by me and advised to use vomitus bag. Reevaluation #3: 10/16/21 18:00: I discussed with the patient my advisement that she undergo placement of a ce ntral venous catheter given that she has a solitary peripheral IV in her right EJ, and that she needs multiple medications administered to her for management of her DKA. The patient is awake alert and oriented to person place and time and situation. Patient stated " No, fuck that! I don't want that!" Risks of refusal were discussed at length with the patient. She verbalized understanding but perseverated and stating she is refusing central line. 18:13: I again approached the patient and advised again that she undergo placement of a central venous catheter. The patient subsequently provided verbal agreement to undergo placement but is stating she has to use the restroom first and will p ermitted to be done upon returning to the room. 18:32 Pt observed ambulating to/from restroom with steady gait; no vomiting witnessed 10/16/21 18:41 Pt has returned to her her examination room. She is observed again ambulating with normal steady gait without assistance. She is not actively vomiting at this time. - Consultations Consultation #1: 10/16/21 20:[address] Morton, the on-call prototype assembler electronics, concerning the patient, her past medical history, presentation, current single live IUP, unclear last menstrual cycle given the patient's is provided varying answers to myself and other staff members, and the patient's current presentation for abdominal pain and DKA. I asked him whether or not he would like me to telephone WIC SITE COORDINATOR to consult on the patient, but he stated "no." The patient has a confirmed single live IUP, and there is no acute intervention warranted from obstetrics or gynecology at this time and the patient. Therefore consult will not be obtained on my behalf and per my discussion with him, and he verbalized agreement ED Medical Decision Making - Lab Data Result diagrams: 10/16/21 16:11 10/16/21 16:17 - EKG Data -: EKG Interpreted by Me Rate: tachycardia - EKG Data When compared to previous EKG there are: no significant change Interpretation: no acute changes - Radiology Data Radiology results: report reviewed - Medical Decision Making This is a 26-year-old female with uncontrolled hypertension, uncontrolled diabetes, gastroparesis, chronic marijuana abuse, presents for intractable nausea vomiting lower abdominal pain. Patient is tachycardic and hypertensive on arrival. Physical exam findings documented previously. Patient was very difficult to redirect in the ER. She initially stated she was not citing her last menstrual cycle was 2 weeks ago. Given her persistent agitation and difficulty with being very redirected, as well as the need to aid the patient in reducing her risk of harm to her self(pt was persistently sliding off of the bed, and getting out of the bed while attempting to induce vomiting), she was given Ativan. However patient found to be today and still persists that her LMP was 2 weeks ago. Serum hCG quant greater than 10,000. Formal transabdominal ultrasound demonstrates single live IUP approximately 5 weeks 6 days estimated gestational age, with +FHTs. There is no evidence of concomitant ectopic . The was also found to be in DKA today. The need for peripheral IV placement was discussed multiple times with the patient. Per nursing staff the patient is noted to be very difficult in obtaining peripheral IV she is very difficult to redirect and was very difficult to obtain cooperation with this. Patient lost peripheral IV access and subsequently required placement of a right femoral central venous catheter. This procedure was also very difficult to perform, as the pt persistently refused, and thereafter upon verbalizing agreement, continued to writhe in her bed, and remove the femoral central lline with her R hand. I had multiple discussions with the patient and stressed to her the necessity of the importance of placing a central venous catheter. Patient sub sequently provided verbal consent and a right femoral central line was placed. The patient was given multiple liters of normal saline, in addition to Zofran, famotidine, morphine, insulin 4u IVP, and subsequently started on insulin drip. Case was reviewed and discussed via telephone with the prototype assembler electronics, . He verbalized understanding and agreement of the patient's management. The patient was accepted for admission to the medical intensive care unit by the admitting hospitalist, Dr.Sahra. Critical Care Time: Yes Critical care time in (mins) excluding proc time.: 30 Critical care attestation.: If time is entered above; I have spent that time in minutes in the direct care of this critically ill patient, excluding procedure time. ED Disposition Clinical Impression: DKA (diabetic ketoacidosis), High anion gap metabolic acidosis, , Cyclical vomiting syndrome, Marijuana abuse Disposition: 09 ADMITTED INPATIENT Is pt being admited?: Yes Does the pt Need Aspirin: No Condition: Stable Instructions: Diabetic Ketoacidosis (ED) Referrals: PRIMARY CARE, [Primary Care Provider] - 3-5 Days
[2021-10-16 16:03] LABS: Amphetamine Screen,Urine Negative; Benzodiazepines Screen,Urine Negative; Cocaine Screen,Urine Negative; Methadone Screen,Urine Negative; Opiate Screen,Urine Negative
[2021-10-16 16:21] LABS: Cannabinoid Screen,Urine Positive
[2021-10-16 16:32] LABS: Mucus,Urine FEW /HPF
[2021-10-16 16:41] LABS: Color,Urine Straw (Yellow)
[2021-10-16] MEDS ORDERED: HALOPERIDOL LACTATE 5 MG/1 ML INJ ONE (17:20)
[2021-10-16] MEDS ORDERED: METOCLOPRAMIDE 10 MG/2 ML INJ IV ONE ×2 (17:21→21:00)
[2021-10-16 17:22] LABS: Hematocrit 35.2 % (30.3-42.9); Hemoglobin 11.1 gm/dl (10.1-14.3); Mean Corpuscular HGB Conc 31 % (30-34); Mean Corpuscular Volume 84 fl (79-97); Platelet Count 425 K/mm3 (140-440); Red Blood Count 4.21 M/mm3 (3.65-5.03); Red Cell Distribution Width 16.4 % (13.2-15.2)
[2021-10-16] MEDS ORDERED: diphenhydrAMINE 50 MG/ML VIAL ONE (17:25)
[2021-10-16] MEDS ORDERED: diphenhydrAMINE 50 MG/ML VIAL IV ONE (17:25)
[2021-10-16 17:53] LABS: Alanine Aminotransferase 9 units/L (7-56); Blood Urea Nitrogen 14 mg/dL (7-17); Calcium 9.8 mg/dL (8.4-10.2); Hemolysis Index 27
[2021-10-16 18:01] LABS: BUN/Creatinine Ratio 28
[2021-10-16] MEDS ORDERED: MORPHINE 4 MG/1 ML INJ IV ONE (18:04)
[2021-10-16] MEDS ORDERED: INSULIN REGULAR, HUMAN 100 UNITS/1 ML IV ONE (18:15)
[2021-10-16 18:31] LABS: Anisocytosis 2+; Band Neutrophils # (Manual) 0.9 K/mm3; Basophils % (Manual) 0 % (0.0-1.8); Total Cells Counted 100
[2021-10-16 18:32] LABS: Hypochromasia 1+; Ovalocytes 1+; Platelet Estimate Consistent w Auto
[2021-10-16] MEDS ORDERED: INSULIN REGULAR, HUMAN 100 UNITS in SODIUM CHLORIDE 0.9% 99 ML IV SCH (19:00)
[2021-10-16 19:23] LABS: ABG Base Excess -14.1 mmol/L (-2.0-3.0); ABG HCO3 11.8 mmol/L (20.0-26.0); ABG Methemoglobin 0.3 % (0.0-1.5); ABG Oxygen Saturation 96.6 % (95.0-99.0); ABG PCO2 27.6 mm Hg; ABG PH 7.247 pH Units (7.350-7.450); ABG PO2 93.7 mm Hg (80.0-90.0)
[2021-10-16] MEDS ORDERED: oxyCODONE /ACETAMINOPHEN 5-325MG TAB PO PRN (19:49)
[2021-10-16] MEDS ORDERED: ACETAMINOPHEN 325 MG TAB PO PRN ×2 (19:49→21:40)
[2021-10-16 21:14] LABS: Blood Urea Nitrogen 13 mg/dL (7-17); Calcium 8.4 mg/dL (8.4-10.2); Hemolysis Index 2
[2021-10-16 21:32] LABS: BUN/Creatinine Ratio 26
--- NOTE | 2021-10-16 21:39 | History and Physical Report ---
History of Present Illness Date of examination: 10/16/21 Date of admission: 10/16/21 19:49 Chief complaint: Nausea vomiting and abdominal pain for 3 days History of present illness: 26-year-old female with history of type 1 diabetes, hypertension, gastroparesis and noncompliance comes in for intractable nausea vomiting and abdominal pain for 3 days. Patient has not been taking her insulin properly. Persistent vomiting and nausea present. Vomiting about 6-8 times in the last 16 hours. No fever or chills. No hematemesis. No hematochezia. Abdominal pain rated 7 or 8 on a scale of 1-10. Intermittent in nature. Sharp in nature. No radiation. No exacerbating or relieving factors. Patient is a very poor historian and unable to give much history from her. Patient unable to give her last menstrual period. Incidentally patient was found to be with age about 5-1/2 weeks - Past Medical History --Hypertension: Yes --Diabetes: Yes --Additional medical history: Gastroparesis - Surgical History --Additional Surgical History: 2017. wisdom teeth - Social History Smoking Status: Current Every Day Smoker Substance Use Type: Marijuana - Medications Home Medications: Home Medications Medication Instructions Recorded Confirmed Last Taken Type Ferrous Sulfate [Iron 325 MG] 325 mg PO QAM 04/16/21 06/04/21 06/03/21 History DOXYCYCLINE Hyclate [Vibramycin 100 mg PO Q12HR #14 capsule 06/06/21 Unknown Rx CAP] metroNIDAZOLE [Flagyl TAB] 500 mg PO Q12HR #2 06/06/21 Unknown Rx Insulin Glargine,Hum.rec.anlog 12 unit SQ QDAY 30 Days #2 pen 06/26/21 Unknown Rx [Basaglar Kwikpen U-100] Insulin Lispro [Admelog Solostar] 10 unit SQ TIDAC 30 Days #2 pen 06/26/21 Unknown Rx Levothyroxine [Synthroid] 50 mcg PO 0600 #30 tablet 06/26/21 Unknown Rx lisinopriL [Zestril TAB] 10 mg PO QDAY #30 tablet 06/26/21 Unknown Rx Ketorolac [Toradol] 10 mg PO Q6H PRN #10 08/28/21 Unknown Rx Review of Systems ROS: Constitutional generalized weakness HEENT no sore throat no post nasal drip no diplopia Neck no neck stiffness no lymph gland enlargement Chest and lungs no shortness of breath cough or wheezing CVS no chest pain no diaphoresis no palpitations GI persistent nausea vomiting and abdominal pain. 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 no seizures Skin no rash no itching Psychiatric no depression no homicidal or suicidal tendencies Hematologic no lymphedema or bruising Endocrine no polydipsia no polyuria no cold intolerance no heat intolerance Medications and Allergies Allergies Allergy/AdvReac Type Severity Reaction Status Date / Time animal dander Allergy Unknown Verified 07/20/21 17:01 Home Medications Medication Instructions Recorded Confirmed Last Taken Type Ferrous Sulfate [Iron 325 MG] 325 mg PO QAM 04/16/21 06/04/21 06/03/21 History DOXYCYCLINE Hyclate [Vibramycin 100 mg PO Q12HR #14 capsule 06/06/21 Unknown Rx CAP] metroNIDAZOLE [Flagyl TAB] 500 mg PO Q12HR #2 06/06/21 Unknown Rx Insulin Glargine,Hum.rec.anlog 12 unit SQ QDAY 30 Days #2 pen 06/26/21 Unknown Rx [Basaglar Kwikpen U-100] Insulin Lispro [Admelog Solostar] 10 unit SQ TIDAC 30 Days #2 pen 06/26/21 Unknown Rx Levothyroxine [Synthroid] 50 mcg PO 0600 #30 tablet 06/26/21 Unknown Rx lisinopriL [Zestril TAB] 10 mg PO QDAY #30 tablet 06/26/21 Unknown Rx Ketorolac [Toradol] 10 mg PO Q6H PRN #10 08/28/21 Unknown Rx Active Meds: Active Medications Acetaminophen (Acetaminophen 325 Mg Tab) 650 mg PO Q6H PRN PRN Reason: Pain MILD(1-3)/Fever >100.5/[place] Insulin Human Regular 100 (units/ Sodium Chloride) 100 mls @ 1 mls/hr IV TITR SILVANA; Protocol Last Admin: 10/16/21 20:43 Dose: 8 units/hr, 8 mls/hr Oxycodone/Acetaminophen (Oxycodone /Acetaminophen 5-325mg Tab) 1 tab PO Q6H PRN PRN Reason: Pain, Moderate (4-6) Sodium Chloride (Sodium Chloride 0.9% 10 Ml Flush Syringe) 10 ml IV BID SILVANA Sodium Chloride (Sodium Chloride 0.9% 10 Ml Flush Syringe) 10 ml IV PRN PRN PRN Reason: LINE FLUSH Exam - Constitutional Vitals: Temp Pulse Resp BP Pulse Ox 133 H 9 L 178/113 99 10/16/21 17:45 10/16/21 18:15 10/16/21 18:15 10/16/21 17:01 General appearance: Present: mild distress, well-nourished - EENT Eyes: Present: PERRL ENT: hearing intact, clear oral mucosa - Neck Neck: Present: supple, normal ROM - Respiratory Respiratory effort: normal Respiratory: bilateral: CTA - Cardiovascular Heart rate: 110 Rhythm: regular Heart Sounds: Present: S1 & S2. Absent: rub, click - Extremities Extremities: no ischemia, pulses intact, pulses symmetrical, No edema Peripheral Pulses: within normal limits - Abdominal General gastrointestinal: Present: soft, non-tender, non-distended, normal bowel sounds Female genitourinary: Present: normal - Integumentary Integumentary: Present: clear, warm, dry - Musculoskeletal Musculoskeletal: gait normal, strength equal bilaterally - Psychiatric Psychiatric: appropriate mood/affect, intact judgment & insight, agitated - Neurologic Neurologic: CNII-XII intact, moves all extremities - Allied Health Allied health notes reviewed: nursing, social work, case management Results - Labs CBC & Chem 7: 10/16/21 16:11 10/17/21 03:10 Labs: Laboratory Last Values WBC 13.5 K/mm3 (4.5-11.0) H 10/16/21 16:11 RBC 4.21 M/mm3 (3.65-5.03) 10/16/21 16:11 Hgb 11.1 gm/dl (10.1-14.3) 10/16/21 16:11 Hct 35.2 % (30.3-42.9) 10/16/21 16:11 MCV 84 fl (79-97) 10/16/21 16:11 MCH 26 pg (28-32) L 10/16/21 16:11 MCHC 31 % (30-34) 10/16/21 16:11 RDW 16.4 % (13.2-15.2) H 10/16/21 16:11 Plt Count 425 K/mm3 (140-440) 10/16/21 16:11 Add Manual Diff Complete 10/16/21 16:11 Total Counted 100 10/16/21 16:11 Seg Neutrophils % Business Analysis Professional 10/16/21 16:11 Seg Neuts % (Manual) 90.0 % (40.0-70.0) H 10/16/21 16:11 Band Neutrophils % 7.0 % 10/16/21 16:11 Lymphocytes % (Manual) 0 % (13.4-35.0) L 10/16/21 16:11 Reactive Lymphs % (Man) 0 % 10/16/21 16:11 Monocytes % (Manual) 2.0 % (0.0-7.3) 10/16/21 16:11 Eosinophils % (Manual) 1.0 % (0.0-4.3) 10/16/21 16:11 Basophils % (Manual) 0 % (0.0-1.8) 10/16/21 16:11 Metamyelocytes % 0 % 10/16/21 16:11 Myelocytes % 0 % 10/16/21 16:11 Promyelocytes % 0 % 10/16/21 16:11 Blast Cells % 0 % 10/16/21 16:11 Nucleated RBC % Not Reportable 10/16/21 16:11 Seg Neutrophils # Man 12.2 K/mm3 (1.8-7.7) H 10/16/21 16:11 Band Neutrophils # 0.9 K/mm3 10/16/21 16:11 Lymphocytes # (Manual) 0.0 K/mm3 (1.2-5.4) L 10/16/21 16:11 Abs React Lymphs (Man) 0.0 K/mm3 10/16/21 16:11 Monocytes # (Manual) 0.3 K/mm3 (0.0-0.8) 10/16/21 16:11 Eosinophils # (Manual) 0.1 K/mm3 (0.0-0.4) 10/16/21 16:11 Basophils # (Manual) 0.0 K/mm3 (0.0-0.1) 10/16/21 16:11 Metamyelocytes # 0.0 K/mm3 10/16/21 16:11 Myelocytes # 0.0 K/mm3 10/16/21 16:11 Promyelocytes # 0.0 K/mm3 10/16/21 16:11 Blast Cells # 0.0 K/mm3 10/16/21 16:11 WBC Morphology Not Reportable 10/16/21 16:11 Hypersegmented Neuts Not Reportable 10/16/21 16:11 Hyposegmented Neuts Not Reportable 10/16/21 16:11 Hypogranular Neuts Not Reportable 10/16/21 16:11 Smudge Cells Not Reportable 10/16/21 16:11 Toxic Granulation Not Reportable 10/16/21 16:11 Toxic Vacuolation Not Reportable 10/16/21 16:11 Dohle Bodies Not Reportable 10/16/21 16:11 Pelger-Huet Anomaly Not Reportable 10/16/21 16:11 Tao Rods Not Reportable 10/16/21 16:11 Platelet Estimate Consistent w auto 10/16/21 16:11 Clumped Platelets Not Reportable 10/16/21 16:11 Plt Clumps, EDTA Not Reportable 10/16/21 16:11 Large Platelets Not Reportable 10/16/21 16:11 Giant Platelets Not Reportable 10/16/21 16:11 Platelet Satelliting Not Reportable 10/16/21 16:11 Plt Morphology Comment Not Reportable 10/16/21 16:11 RBC Morphology Not Reportable 10/16/21 16:11 Dimorphic RBCs Not Reportable 10/16/21 16:11 Polychromasia Not Reportable 10/16/21 16:11 Hypochromasia 1+ 10/16/21 16:11 Poikilocytosis Not Reportable 10/16/21 16:11 Anisocytosis 2+ 10/16/21 16:11 Microcytosis 2+ 10/16/21 16:11 Macrocytosis Not Reportable 10/16/21 16:11 Spherocytes Not Reportable 10/16/21 16:11 Pappenheimer Bodies Not Reportable 10/16/21 16:11 Sickle Cells Not Reportable 10/16/21 16:11 Target Cells Not Reportable 10/16/21 16:11 Tear Drop Cells Not Reportable 10/16/21 16:11 Ovalocytes 1+ 10/16/21 16:11 Helmet Cells Not Reportable 10/16/21 16:11 Matta-Anthem Bodies Not Reportable 10/16/21 16:11 [place] Rings Not Reportable 10/16/21 16:11 Ang Cells Not Reportable 10/16/21 16:11 Bite Cells Not Reportable 10/16/21 16:11 Crenated Cell Not Reportable 10/16/21 16:11 Elliptocytes 1+ 10/16/21 16:11 Acanthocytes (Spur) Not Reportable 10/16/21 16:11 Rouleaux Not Reportable 10/16/21 16:11 Hemoglobin C Crystals Not Reportable 10/16/21 16:11 Schistocytes Not Reportable 10/16/21 16:11 Malaria parasites Not Reportable 10/16/21 16:11 Jaswant Bodies Not Reportable 10/16/21 16:11 Hem Pathologist Commnt No 10/16/21 16:11 ABG pH 7.247 pH Units (7.350-7.450) L 10/16/21 18:50 ABG pCO2 27.6 mm Hg 10/16/21 18:50 ABG pO2 93.7 mm Hg (80.0-90.0) H 10/16/21 18:50 ABG HCO3 11.8 mmol/L (20.0-26.0) L 10/16/21 18:50 ABG O2 Saturation 96.6 % (95.0-99.0) 10/16/21 18:50 ABG O2 Content 13.3 (0.0-44) 10/16/21 18:50 ABG Base Excess -14.1 mmol/L (-2.0-3.0) L 10/16/21 18:50 ABG Hemoglobin 9.8 gm/dl (12.0-16.0) L 10/16/21 18:50 ABG Carboxyhemoglobin 1.2 % (0.0-5.0) 10/16/21 18:50 ABG Methemoglobin 0.3 % (0.0-1.5) 10/16/21 18:50 Oxyhemoglobin 95.1 % (95.0-99.0) 10/16/21 18:50 FiO2 21 % 10/16/21 18:50 Sodium 141 mmol/L (137-145) D 10/16/21 20:31 Potassium 5.1 mmol/L (3.6-5.0) H 10/16/21 20:31 Chloride 106.8 mmol/L (98-107) 10/16/21 20:31 Carbon Dioxide 13 mmol/L (22-30) L 10/16/21 20:31 Anion Gap 26 mmol/L 10/16/21 20:31 BUN 13 mg/dL (7-17) 10/16/21 20:31 Creatinine 0.5 mg/dL (0.6-1.2) L 10/16/21 20:31 Estimated GFR > 60 ml/min 10/16/21 20:31 BUN/Creatinine Ratio 26 % 10/16/21 20:31 Glucose 477 mg/dL (65-100) H 10/16/21 20:31 POC Glucose 484 mg/dL (70-105) H 10/16/21 19:54 Ketones Quantitative Small (Negative) 10/16/21 16:17 Lactic Acid 2.50 mmol/L (0.7-2.0) H* 10/16/21 18:18 Calcium 8.4 mg/dL (8.4-10.2) 10/16/21 20:31 Phosphorus 5.60 mg/dL (2.5-4.5) H 10/16/21 20:31 Magnesium 2.10 mg/dL (1.7-2.3) 10/16/21 20:31 Total Bilirubin 0.40 mg/dL (0.1-1.2) 10/16/21 16:17 AST 13 units/L (5-40) 10/16/21 16:17 ALT 9 units/L (7-56) 10/16/21 16:17 Alkaline Phosphatase 141 units/L (35-129) H 10/16/21 16:17 Total Protein 7.9 g/dL (6.3-8.2) 10/16/21 16:17 Albumin 5.0 g/dL (3.9-5) 10/16/21 16:17 Albumin/Globulin Ratio 1.7 % 10/16/21 16:17 HCG, Qual Positive (Negative) 10/16/21 16:17 Urine Color Straw (Yellow) 10/16/21 15:44 Urine Turbidity Clear (Clear) 10/16/21 15:44 Specific Brumley (Man) 1.010 (1.003-1.030) 10/16/21 15:44 Ur Protein (Man) 3+ mg/dL (Negative) 10/16/21 15:44 Ur Ketones (Man) 3+ (Negative) 10/16/21 15:44 Ur Nitrite (Man) Negative (Negative) 10/16/21 15:44 Ur Reducing Substances Not Reportable 10/16/21 15:44 Urine Bilirubin (Man) Negative (Negative) 10/16/21 15:44 Urine Ictotest Not Reportable 10/16/21 15:44 Leukocyte Esterase (Man) Negative (Negative) 10/16/21 15:44 Urine WBC (Auto) 2.0 /HPF (0.0-6.0) 10/16/21 15:44 Urine RBC (Auto) 10.0 /HPF (0.0-6.0) 10/16/21 15:44 U Epithel Cells (Auto) 11.0 /HPF (0-13.0) 10/16/21 15:44 Urine RBC (Manual) 1+ (Negative) 10/16/21 15:44 Urine Mucus Few /HPF 10/16/21 15:44 Urine Opiates Screen Negative 10/16/21 15:44 Urine Methadone Screen Negative 10/16/21 15:44 Ur Barbiturates Screen Negative 10/16/21 15:44 Ur Phencyclidine Scrn Negative 10/16/21 15:44 Ur Amphetamines Screen Negative 10/16/21 15:44 U Benzodiazepines Scrn Negative 10/16/21 15:44 Urine Cocaine Screen Negative 10/16/21 15:44 U Marijuana (THC) Screen Positive 10/16/21 15:44 Drugs of Abuse Note Disclamer 10/16/21 15:44 Short CBC 10/16/21 Range/Units 16:11 WBC 13.5 H (4.5-11.0) K/mm3 Hgb 11.1 (10.1-14.3) gm/dl Hct 35.2 (30.3-42.9) % Plt Count 425 (140-440) K/mm3 BMP 10/16/21 10/16/21 10/16/21 16:17 20:31 22:38 Sodium 134 L 141 D 145 Potassium 5.2 H 5.1 H 4.6 Chloride 95.6 L 106.8 112.4 H Carbon Dioxide 13 L 13 L 18 L BUN 14 13 12 Creatinine 0.5 L 0.5 L 0.5 L Glucose 554 H* 477 H 247 H Calcium 9.8 8.4 8.9 10/17/21 03:10 Sodium 142 Potassium 4.7 Chloride 112.4 H Carbon Dioxide 21 L BUN 12 Creatinine 0.4 L Glucose 185 H Calcium 8.3 L Liver Function 10/16/21 Range/Units 16:17 Total Bilirubin 0.40 (0.1-1.2) mg/dL AST 13 (5-40) units/L ALT 9 (7-56) units/L Alkaline Phosphatase 141 H (35-129) units/L Albumin 5.0 (3.9-5) g/dL Urine 10/16/21 Range/Units 15:44 Urine Color Straw (Yellow) - Imaging and Cardiology Imaging and Cardiology: ultrasound Single living intrauterine with estimated age of 5-1/2 weeks Assessment and Plan Assessment and plan: Critical care statement The high probability OF a clinically significant sudden or life-threatening deterioration of the cardiorespiratory system and endocrine system required my full and direct attention, intervention and postoperative management. The aggregate critical care time was 62 minutes. The time is in addition to time spent performing reported procedures but includes the followin: Data review and interpretation 2: Patient assessment and monitoring of vital signs 3: Documentation 4:: Medication orders and management Advance Directives: Yes (Full code) VTE prophylaxis?: Chemical Plan of care discussed with patient/family: Yes - Patient Problems (1) DKA (diabetic ketoacidoses) Current Visit: Yes Status: Acute Qualifiers: Diabetes mellitus type: type 1 Plan to address problem: DKA protocol initiated. IV insulin for now. IV fluids for now. Patient to be counseled about compliance by the primary team. Patient has recurrent admissions. Patient was educated about basal bolus insulin. Patient may also need continuous glucose monitoring in the form of libre2 or Dexcom (2) Gastroparesis Current Visit: Yes Status: Acute Plan to address problem: Patient is n.p.o. IV Reglan and IV Zofran as needed. IV fluids. (3) Hypertension Current Visit: Yes Status: Chronic Qualifiers: Hypertension type: primary hypertension Qualified Code(s): I10 - Essential (primary) hypertension Plan to address problem: Continue antihypertensives which are not teratogenic (4) Current Visit: Yes Status: Acute Qualifiers: Weeks of gestation: less than 8 weeks Qualified Code(s): Z3A.01 - Less than 8 weeks gestation of Plan to address problem: Patient is 5-1/2 weeks Obstetrics/gynecology consulted No difference in management (5) Hyperkalemia Current Visit: Yes Status: Acute Plan to address problem: Potassium was 5.2 Should correct with IV insulin (6) Hyponatremia Current Visit: Yes Status: Acute Plan to address problem: Should correct with correction of blood glucose levels (7) Metabolic acidosis Current Visit: Yes Status: Acute Plan to address problem: Anion gap is 31 IV insulin and IV fluids for now (8) DVT prophylaxis Current Visit: Yes Status: Acute Plan to address problem: On heparin GI prophylaxis (9) Advance care planning Current Visit: Yes Status: Acute Plan to address problem: Disease education conducted, care plan discussed, diagnosis and prognosis discussed. Patient is full code. Patient acknowledged understanding with care plan. +30 minutes.
[2021-10-16] MEDS ORDERED: METOCLOPRAMIDE 10 MG/2 ML INJ IV PRN (21:40)
[2021-10-16] MEDS ORDERED: ONDANSETRON 4 MG/2 ML INJ IV PRN (21:40)
[2021-10-16] MEDS ORDERED: DEXTROSE 50% IN WATER (25GM) 50 ML SYRINGE IV PRN (21:42)
[2021-10-16] MEDS ORDERED: D5W/0.45% NACL/KCL 20 MEQ 20 MEQ/1,000 ML BAG IV SCH (22:00)
[2021-10-16] MEDS ORDERED: INSULIN GLARGINE 100 UNITS/ML SUB-Q SCH (22:00)
--- NOTE | 2021-10-16 22:07 | Ultrasound Report ---
ULTRASOUND OBSTETRIC INDICATION / CLINICAL INFORMATION: low abdominal pain, LMP 4 weeks ago/ +preg. Clinical Gestational Age (GA) in weeks, days: Unknown TECHNIQUE: Transabdominal. COMPARISON: None available. FINDINGS: GESTATIONAL SAC: Well-defined oval shape and intrauterine in location. YOLK SAC: No significant abnormality. EMBRYO/FETUS: There appears to be a very small pole measuring 3 mm. This would correlate to a 5 week 6 day gestation. heartbeat is identified measuring 87 bpm. ADNEXA: No significant abnormality. FREE FLUID: None. ADDITIONAL FINDINGS: None. IMPRESSION: 1. Single, living intrauterine with estimated sonographic age of 5, 6 weeks, days. Signer Name: José Nice MD Signed: 10/16/2021 10:02 PM Workstation Name: [id number]
[2021-10-16 23:32] LABS: Blood Urea Nitrogen 12 mg/dL (7-17); Calcium 8.9 mg/dL (8.4-10.2); Hemolysis Index 6
[2021-10-16 23:35] LABS: BUN/Creatinine Ratio 24
[2021-10-17] MEDS: MORPHINE 2 MG/1 ML INJ IV PRN ×2 (00:45→10:25)
[2021-10-17] MEDS: HYDROmorphone 0.5 MG/0.5 ML INJ IV PRN ×3 (01:38→08:40)
[2021-10-17 03:40] LABS: BUN/Creatinine Ratio 30; Blood Urea Nitrogen 12 mg/dL (7-17); Calcium 8.3 mg/dL (8.4-10.2); Hemolysis Index 2
[2021-10-17] MEDS ORDERED: INSULIN REGULAR, HUMAN 100 UNITS in SODIUM CHLORIDE 0.9% 99 ML IV SCH (05:00)
[2021-10-17] MEDS ORDERED: INSULIN LISPRO 100 UNIT/ML SQ SCH (07:30)
[2021-10-17] MEDS ORDERED: INSULN SQ SCH (07:30)
[2021-10-17] MEDS: FAMOTIDINE 20 MG/2 ML INJ IV SCH ×2 (08:14→10:25)
[2021-10-17] MEDS: INSULIN REGULAR, HUMAN 100 UNITS/1 ML SUB-Q SCH ×2 (08:40→11:58)
[2021-10-17] MEDS: INSULIN LISPRO 100 UNIT/ML SUB-Q SCH ×2 (08:40→11:58)
[2021-10-17 09:09] VITALS: BP 168/103
[2021-10-17] MEDS ORDERED: NON-FORMULARY EACH (Insulin Glargine,Hum.Rec.Anlog [Basaglar Kwikpen U-100] 100 UNIT/ML In SQ SCH (10:00)
--- NOTE | 2021-10-17 10:57 | Discharge Summary ---
Providers - Providers Date of Admission: 10/16/21 19:49 Date of discharge: 10/17/21 Attending physician: LORE BAZZI MD 10/16/21 18:35 Consult to Physician [CONS] Routine Comment: Consulting Provider: SERINA FELDMAN Physician Instructions: Reason For Exam: DKA, ICU admission 10/16/21 19:49 Consult to Physician [CONS] Routine Comment: Consulting Provider: GURWINDER PETERSON Physician Instructions: Reason For Exam: IUP, lower abdominal pain , single live IUP, DKA 10/16/21 21:41 Consult to Dietitian/Nutrition [CONS] Routine Physician Instructions: Reason For Exam: Reason for Consult: Diet education 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 Work-up in the emergency department revealed lab work consistent with DKA, she was tachycardic and hypertensive to 178/113 on arrival. Patient was admitted to the hospital service with consults to CCM on DKA pathway. This morning patient's anion gap has been closed and she is transitioned to SSI and long-acting insulin. Patient will be discharged home today. Patient will need to follow-up with a primary care physician within 1 to 2 weeks of discharge and follow-up with [facility] [employer] for care. Medical compliance strongly encouraged. Follow up with psych outpatient. Encouraged marijuana use cessation. #DKA -S/p DKA protocol -S/p insulin drip -Continue home long-acting insulin and sliding scale insulin per primary care physician's instructions -Blood glucose monitoring per primary care physician instructions #Anion gap metabolic acidosis (resolved) #Gastroparesis -Continue home regimen -Follow-up with primary care physician #Hypertension -Follow-up with primary care physician -DC with labetalol -Blood pressure monitoring daily # -Follow-up with [facility] [employer] -Continue care #Hypothryiodism -Continue synthroid -Follow-up with primary care physician #Hyperkalemia (resolved) #Hyponatremia (resolved) Disposition: 01 HOME / SELF CARE / HOMELESS Final Discharge Diagnosis (Prints w/discharge instructions): DKA, Anion gap metabolic acidosis (resolved), Gastroparesis, Hypertension, . Hyperkalemia (resolved), Hyponatremia (resolved) Time spent for discharge: 60 Core Measure Documentation - Palliative Care Palliative Care/ Comfort Measures: Not Applicable - Core Measures Any of the following diagnoses?: none Exam - Constitutional Vitals: Temp Pulse Resp BP Pulse Ox 95 H 13 168/103 99 10/17/21 10:00 10/17/21 09:30 10/17/21 09:30 10/17/21 09:30 General appearance: Present: no acute distress - EENT Eyes: Present: PERRL, EOM intact ENT: hearing intact, clear oral mucosa, dentition normal - Neck Neck: Present: normal ROM - Respiratory Respiratory effort: normal Respiratory: bilateral: CTA - Cardiovascular Rhythm: regular Heart Sounds: Present: S1 & S2. Absent: systolic murmur, diastolic murmur - Extremities Extremities: no ischemia, pulses intact, pulses symmetrical, No edema, normal temperature, normal color Peripheral Pulses: within normal limits - Abdominal General gastrointestinal: Present: soft, non-tender, non-distended, normal bowel sounds - Integumentary Integumentary: Present: warm, dry - Musculoskeletal Musculoskeletal: strength equal bilaterally - Psychiatric Psychiatric: cooperative - Neurologic Neurologic: CNII-XII intact, no focal deficits, moves all extremities - Allied Health Allied health notes reviewed: nursing Plan Activity: advance as tolerated Diet: diabetic Special Instructions: record daily BP diary, record blood sugar diary Additional Instructions: Present to your nearest emergency department or contact your primary care physician if you experience worsening symptoms. Follow-up with your primary care physician and [facility] [employer] for continued care. Medical compliance strongly encouraged. You will be discharged with labetalol, Lantus. You will continue with your home short acting insulin and Synthroid. Follow up with psych outpatient. Encouraged marijuana use cessation. Follow up with: PRIMARY CAREMD [Primary Care Provider] - 3-5 Days [facility] [Outside] - 7 Days [facility] [Outside] - 7 Days [facility] [Outside] - 7 Days Prescriptions: Insulin Glargine [Lantus VIAL] 25 units SUB-Q QHS #1 vial labetaloL [Labetalol 100mg TAB] 100 mg PO BID #60 tablet
[2021-10-18] MEDS ORDERED: LEVOTHYROXINE 50 MCG TAB PO SCH (06:00)
== END 2021-10-17 14:28 | disposition home or self-care (01) | DRG 638 ==
LOC: ED 13:44 → CC1 19:49
PROVIDERS: ADMIT Internal Medicine; ATTEND Internal Medicine
PROC: 4A033R1 Measurement of Arterial Saturation, Peripheral, Percutaneous Approach (ICD-10-PCS; principal; 2021-10-16)
DX: E10.10 Type 1 diabetes mellitus with ketoacidosis without coma (principal); E87.1 Hypo-osmolality and hyponatremia; K31.84 Gastroparesis; I10 Essential (primary) hypertension; F17.200 Nicotine dependence, unspecified, uncomplicated; F12.10 Cannabis abuse, uncomplicated; Z33.1 Pregnant state, incidental; E10.43 Type 1 diabetes mellitus with diabetic autonomic (poly)neuropathy; E87.5 Hyperkalemia; Z79.899 Other long term (current) drug therapy; Z91.048 Other nonmedicinal substance allergy status
CPT/HCPCS: 36415; 76801; 80048; 80053; 80307; 81001; 82010; 82140; 82803; 82962; 83735; 84100; 84702; 84703; 85007; 85025; 96374; 96375; 96376; 99291; G0378; J3480; J3490; Q9967; J1170; J1200; J1630; J1815; J2060; J2270; J2405; J2765; J7030